=== PATIENT | female | born 1935 | race Hispanic/Latino ===

== ENCOUNTER 2021-07-18 15:16 | Emergency (ER) | payer MEDICARE, MEDICAID ==
[~2021-07-18] VITALS: Ht 160 cm; Wt 62.6 kg
[2021-07-18 15:56] LABS: APPEARANCE,URINE Clear (CLEAR); BILIRUBIN,URINE Negative (NEGATIVE); COLOR,URINE Yellow (YELLOW); GLUCOSE, URINE (UA) Negative (NEGATIVE); KETONES,URINE Trace mg/dL (NEGATIVE); LEUKOCYTE ESTERASE ,URINE Moderate (NEGATIVE); NITRATE,URINE Negative (NEGATIVE); OCCULT BLOOD,URINE Negative (NEGATIVE); PROTEIN,URINE Trace mg/dL (NEGATIVE)
[2021-07-18 16:02] LABS: BASOPHILS % (AUTO) 0.5 % (0.0-5.0); EOSINOPHILS % (AUTO) 3.2 % (0.0-8.0); HEMATOCRIT 39.8 % (36-48); LYMPHOCYTES % (AUTO) 38.4 % (21.0-51.0); MEAN CORPUSCULAR HEMOGLOBIN 29.5 pg (27.0-33.0); MEAN CORPUSCULAR HGB CONC 32.2 g/dL (32.0-36.0); MEAN CORPUSCULAR VOLUME 91.7 fL (79-99); MONOCYTES % (AUTO) 6.4 % (3.0-13.0); NEUTROPHILS % (AUTO) 51.4 % (40.0-77.0); PLATELET COUNT (AUTO) 208 K/uL (130-400); RED BLOOD CELL COUNT(AUTO) 4.34 MIL/uL (4.00-5.50); RED CELL DISTRIBUTION WIDTH 14.3 % (11.0-15.5); WHITE BLOOD COUNT (AUTO) 7.3 K/uL (4.8-10.8)
[2021-07-18 16:21] LABS: B-TYPE NATRIURETIC PEPTIDE 74 pg/mL (0-100)
[2021-07-18 16:24] LABS: BACTERIA,URINE Few /HPF (None Seen); MUCUS,URINE Few LPF (None Seen); SQUAMOUS EPITHELIAL CELL,UR Few /HPF (0-2)
[2021-07-18 16:24] LABS: CARBON DIOXIDE 24 mmol/L (21-32); CHLORIDE 108 mmol/L (101-111); CREATININE 1.7 mg/dL (0.5-1.5); GLOMERULAR FILTR. RATE CALC 30 mL/min (>60); GLUCOSE,RANDOM 95 mg/dL (70-105); POTASSIUM 3.7 mmol/L (3.5-5.1); SODIUM SERUM 143 mmol/L (136-145); UREA NITROGEN, BLOOD 31 mg/dL (7-18)
[2021-07-18 16:35] LABS: ALANINE AMINOTRANSFERASE 14 U/L (12-78); ALBUMIN 3.9 g/dL (3.5-5.0); ASPARTATE AMINOTRANSFERASE 14 U/L (10-37); BILIRUBIN,TOTAL 0.4 mg/dL (0.2-1.0); CREATINE KINASE, TOTAL 78 U/L (21-232); THYROID STIMULATING HORMONE 0.56 uIU/mL (0.36-3.74); TOTAL PROTEIN, SERUM 7.6 g/dL (6.0-8.3)
[2021-07-18 16:39] LABS: CRP QUANTITATIVE < 2.00 mg/L (0.00-9.0)
[2021-07-18 16:46] LABS: AMMONIA 18 umol/L (11-32)
[2021-07-18 18:16] VITALS: BP 139/63
== END 2021-07-18 18:56 | disposition home or self-care (01) ==
LOC: EDH 15:16
DX: R53.1 Weakness (principal); R63.0 Anorexia; N28.9 Disorder of kidney and ureter, unspecified; F03.90 Unspecified dementia, unspecified severity, without behavioral disturbance, psychotic disturbance, mood disturbance, and anxiety; Z20.822 Contact with and (suspected) exposure to COVID-19; E11.9 Type 2 diabetes mellitus without complications; E78.00 Pure hypercholesterolemia, unspecified; I10 Essential (primary) hypertension; E05.90 Thyrotoxicosis, unspecified without thyrotoxic crisis or storm
CPT/HCPCS: 36415; 70450; 71045; 80053; 81001; 82140; 82550; 83735; 83880; 84443; 84484; 85025; 86140; 87088; 87635; 87804 ×2; 99285; C9803

== ENCOUNTER 2024-03-09 19:20 | Inpatient (IN) | payer MEDICARE ==
[~2024-03-09] VITALS: Ht 154.9 cm; Wt 87.6 kg
--- NOTE | 2024-03-09 19:32 | ERN ---
General Chief Complaint: Shortness of Breath Stated Complaint: SHORTNESS OF BREATH, WHEEZING Time Seen by MD: 19:28 History of Present Illness Initial Comments 88-year-old female brought in by EMS from [facility] for wheezing cough congestion for the last two days. Patient complaining of shortness of breath and dry cough. EMS arrived find the patient satting at 93% on room air with wheezing. They gave a DuoNeb place the patient on 2 L nasal cannula. On arrival here she still has wheezing, minimal tachypnea, able to speak sentences. Baseline mentation, history of dementia. DNR. No rubens signs of fluid overload. She denies any complaints at this time although the history is unreliable. Allergies: Coded Allergies: No Known Drug Allergies (Unverified Allergy, Unknown, 07/18/21) Past Medical History Past Medical History: Dementia, Diabetes-Type II, High Cholesterol, Hypertension, Hyperthyroid, Hypothyroid, Renal Disese Past Surgical History: None Family History Family History: Negative Social History Social History: Negative ROS Dictation Patient reports dyspnea, denies any other complaints. Unreliable history for review of systems. Physical Exam Physical Exam Dictation VITAL SIGNS: Reviewed. GENERAL APPEARANCE: Alert, baseline mentation, moderate distress due to dyspnea HEAD AND FACE: Non-traumatic. EYES: PERRL, pink conjunctivas, eyelid no trauma, anterior chamber clear. EARS: Pinnas intact and no signs of trauma or erythema. Ear canals clear and no discharge. TMs no erythema. NOSE: No discharge, no bleeding. OROPHARYNX: Mouth normal, teeth no caries, tongue pink. Pharynx clear, no erythema. Tonsils no exudates, no abscesses noted. Mucous membrane moist. NECK: Supple, non-tender, no thyromegaly, no masses, no JVD, no bruits. BREAST: Deferred. CHEST: No tenderness, no crepitus, no paradoxical movement, no retractions. LUNGS: Wheezing coarse lung sounds all lobes, speaking full sentences, mild tachypnea HEART: Regular rate, regular rhythm, no murmur, no gallops. VASCULAR: No peripheral edema. ABDOMEN: Soft, positive bowel sounds, nondistended, no guarding, nontender, no rebound, no masses no hepatomegaly, no splenomegaly, no Griffin's sign, no hernias. RECTAL: Deferred. GENITAL: Deferred. NEUROLOGICAL: Normal speech, gross motor function intact, gross sensory function intact. MUSCULOSKELETAL: Neck nontender, full range of motion, back nontender, full range of motion. EXTREMITIES: Nontender, full range of motion. SKIN: Color pink, dry, no turgor, no rash, no lacerations, no abrasions, no contusions. LYMPHATICS: Deferred. Results Laboratory and Microbiology Lab and Micro Result Laboratory Tests Test 03/09/24 19:40 White Blood Count 9.1 K/uL (4.8-10.8) Red Blood Count 3.53 MIL/uL (4.00-5.50) L Hemoglobin 10.9 g/dL (12.0-16.0) L Hematocrit 35.0 % (36-48) L Mean Corpuscular Volume 99.2 fL (79-99) H Mean Corpuscular Hemoglobin 30.9 pg (27.0-33.0) Mean Corpuscular Hemoglobin Concent 31.1 g/dL (32.0-36.0) L Red Cell Distribution Width 13.5 % (11.0-15.5) Platelet Count 181 K/uL (130-400) Mean Platelet Volume 9.8 fL (7.5-10.5) Immature Granulocyte % (Auto) 1.1 % (0-1) H Neutrophils (%) (Auto) 46.1 % (40.0-77.0) Lymphocytes (%) (Auto) 35.0 % (21.0-51.0) Monocytes (%) (Auto) 8.1 % (3.0-13.0) Eosinophils (%) (Auto) 9.0 % (0.0-8.0) H Basophils (%) (Auto) 0.7 % (0.0-5.0) Neutrophils # (Auto) 4.2 K/uL (1.8-7.7) Lymphocytes # (Auto) 3.2 K/uL (1.0-4.8) Monocytes # (Auto) 0.7 K/uL (0.1-1.0) Eosinophils # (Auto) 0.82 K/uL (0.00-0.70) H Basophils # (Auto) 0.06 K/uL (0.00-0.20) Absolute Immature Granulocyte (auto 0.10 K/uL (0-1) Nucleated Red Blood Cells 0.0 % (0.0-0.19) Sodium Level 141 mmol/L (136-145) Potassium Level 4.0 mmol/L (3.5-5.1) Chloride Level 102 mmol/L (101-111) Carbon Dioxide Level 32 mmol/L (21-32) Blood Urea Nitrogen 43 mg/dL (7-18) H Creatinine 2.5 mg/dL (0.5-1.0) H Glomerular Filtration Rate Calc 18 mL/min (>90) Random Glucose 130 mg/dL (70-105) H Total Calcium 9.0 mg/dL (8.5-10.1) B-Type Natriuretic Peptide 36 pg/mL (0-100) MDM CC: dyspnea, wheezing Historian: EMS, patient baseline dementia External chart review: patient's admission paperwork from the facility. Baseline mentation and medical conditions and med lists reviewed. Limitations by social determinates of health: none Differential diagnosis: COPD, bronchitis, resp distress, hypoxia, pneumonia, fluid overload, etc. EKG (Independently interpreted by me): NSR, rate 86, normal axis, good RWP, no STEMI. On clinical exam patient has a expiratory wheezes and coarse breath sounds. CXR (independently interpreted by me): No focal infiltrates no pleural effusions no cardiomegaly. Labs: Mild anemia hemoglobin 10.9. Baseline for patient based on previous labs. No leukocytosis. No shift no bands. Elevated eosinophils. Chemistry panel shows stable electrolytes, GFR is 18. BNP is normal. Based on previous labs patient has a an JEFF on CKD. Last creatinine was 1.7 in 2021. Treatment in ED: 125 mg methylprednisolone IV, ipratropium, 5 mg albuterol, 1 L of lactated Ringer's, 500 mg azithromycin. Re-evaluation: Patient improved, but still minimal wheezing. Plan: We will admit for COPD exacerbation/wheezing. Stable. Consultation: Hospitalist for admission. ED Course Orders Procedure Category Date Status Time Arterial Blood Gas RT 03/09/24 Transmitted 19:30 Cbc With Differential LAB 03/09/24 Complete 19:30 B-Type Natriuretic LAB 03/09/24 Complete Peptide 19:30 Chest 1vw RAD 03/09/24 Taken 19:30 12 Lead Ekg Tracing- EKG 03/09/24 Logged Technical 19:30 Lactated Ringers PHA 03/09/24 In Process 1000ml (Lactated 19:30 Albuterol 0.083% PHA 03/09/24 Complete 2.5mg/3ml (Proventil 19:30 Ipratropium 0.5 PHA 03/09/24 Complete Mg/2.5 Ml Inh 19:30 Methylprednisolone PHA 03/09/24 Complete Succ 125mg (Solu-Medr 19:30 Basic Metabolic Panel LAB 03/09/24 Complete 19:30 Azithromycin PHA 03/09/24 Transmitted (Zithromax) 20:30 Current Medications Medications (Trade) Dose Ordered Sig/Avery Route PRN Reason Start Time Stop Time Status Last Admin Dose Admin Albuterol Sulfate (Proventil 0.083% 2.5mg/3ml) 5 mg ONCE ONCE IH 03/09/24 19:30 03/09/24 19:31 DC 03/09/24 20:07 Ipratropium [place] (AtrovENT UD) 0.5 mg ONCE ONCE IH 03/09/24 19:30 03/09/24 19:31 DC 03/09/24 20:05 Lactated Ringer's 1,000 ml @ 125 mls/hr ONCE ONCE IV 03/09/24 19:30 03/10/24 03:29 03/09/24 19:55 Methylprednisolone Sodium Succinate (Solu-medROL 125MG) 125 mg ONCE ONCE IVP 03/09/24 19:30 03/09/24 19:31 DC 03/09/24 19:54 Vital Signs Date Time Temp Pulse Resp B/P (MAP) Pulse Ox O2 Delivery O2 Flow Rate FiO2 03/09/24 19:40 99.0 87 22 152/70 95 Room Air* 0 21 03/09/24 19:26 98.2 89 16 144/87 99 Nasal Cannula 2.0 DX & DISP Disposition: Inpatient Departure Impression: Primary Impression: Bronchitis with wheezing Additional Impressions: Anemia, JEFF (acute kidney injury), Dementia Critical Time: 30 minutes (Critical Care Procedure NoteAuthorized and Performed by: meTotal critical care time: Approximately 36 minutesDue to a high probability of clinically significant, life threatening deterioration, the patient required my highest level of preparedness to intervene emergently and I personally spent this critical care time directly and personally managing the patient. This critical care time included obtaining a history; examining the patient; pulse oximetry; ordering and review of studies; arranging urgent treatment with development of a management plan; evaluation of patient's response to treatment; frequent reassessment; and, discussions with other provid ers.This critical care time was performed to assess and manage the high probability of imminent, life-threatening deterioration that could result in multi-organ failure. It was exclusive of separately billable procedures and treating other patients and teaching time.Please see MDM section and the rest of the note for further information on patient assessment and treatment.) Condition: Stable Referrals: NICOLE MEADOWS MD (PCP) DARREL IZAGUIRRE DO Mar 09, 2024 19:32
[2024-03-09 19:52] LABS: BASOPHILS # (AUTO) 0.06 K/uL (0.00-0.20); BASOPHILS % (AUTO) 0.7 % (0.0-5.0); EOSINOPHILS # (AUTO) 0.82 K/uL (0.00-0.70); LYMPHOCYTES # (AUTO) 3.2 K/uL (1.0-4.8); MEAN CORPUSCULAR HEMOGLOBIN 30.9 pg (27.0-33.0); MEAN CORPUSCULAR HGB CONC 31.1 g/dL (32.0-36.0); MEAN CORPUSCULAR VOLUME 99.2 fL (79-99); MONOCYTES # (AUTO) 0.7 K/uL (0.1-1.0); MONOCYTES % (AUTO) 8.1 % (3.0-13.0); NEUTROPHILS # (AUTO) 4.2 K/uL (1.8-7.7); NEUTROPHILS % (AUTO) 46.1 % (40.0-77.0); PLATELET COUNT (AUTO) 181 K/uL (130-400); RED BLOOD CELL COUNT(AUTO) 3.53 MIL/uL (4.00-5.50); RED CELL DISTRIBUTION WIDTH 13.5 % (11.0-15.5); WHITE BLOOD COUNT (AUTO) 9.1 K/uL (4.8-10.8)
[2024-03-09] MEDS: Solu-medROL 125MG VIAL IVP ONE (19:54)
[2024-03-09] MEDS: LACTATED RINGERS 1000ML 1,000 ML IV ONE (19:55)
[2024-03-09] MEDS: IpraTROPium 0.5 MG/2.5 ML INH IH ONE (20:05)
[2024-03-09 20:06] LABS: CREATININE 2.5 mg/dL (0.5-1.0)
[2024-03-09 20:07] VITALS: PULSE 78; RESP 18
[2024-03-09] MEDS: ALBUTEROL 0.083% 2.5 MG/3 ML INH IH ONE (20:07)
[2024-03-09 20:10] LABS: B-TYPE NATRIURETIC PEPTIDE 36 pg/mL (0-100)
[2024-03-09] MEDS ORDERED: ondanSETRON 4MG TABLET PO PRN (21:00)
[2024-03-09] MEDS ORDERED: acetaMINOPHEN 325 MG TAB PO PRN (21:00)
[2024-03-09] MEDS: DOXYCYCLINE 100MG+NS 250ML 250 ML IV SCH (21:16)
[2024-03-09] MEDS: AZITHROMYCIN 250 MG TABLET PO ONE (21:16)
[2024-03-09] MEDS: ceFEPime HCL 1 GM VIAL IVPB SCH (21:16)
[2024-03-09 21:57] LABS: ABG BASE EXCESS -2.8 mmol/L (-2.0-3.0); ABG HCO3 22.6 mmol/L (21.0-28.0); ABG OXYGEN SATURATION 94.2 % (94.0-98.0); ABG PCO2 41 mmHg (32-45); ABG PH 7.356 (7.350-7.450); DEVICE COMMENT RB RNPAUL; PO2, ARTERIAL BG 73.2 mmHg (83.0-108.0); VENT MODE, BG NC (ROOM AIR)
[2024-03-09 22:00] VITALS: PULSE 90; RESP 21; O2SAT 94
--- NOTE | 2024-03-09 22:22 | EKG ---
[facility] Test Date: 2024-03-09 Test Time: 19:51:15 Pat Name: MONIQUE SHELTON Department: [facility] Room: 310 1 Gender: F Marketing Systems Manager: [id number] : 1935 Requested By: DARREL IZAGUIRRE Order Number: [id number] Reading MD: Joseph Richter Measurements Intervals Dixon Rate: 86 P: 15 AR: 166 QRS: 40 QRSD: 101 T: 51 QT: 394 QTc: 471 Interpretive Statements Sinus rhythm Compared to ECG 12/10/2014 20:53:40 Sinus bradycardia no longer present T-wave abnormality no longer present Electronically Signed On 03-10-2024 10:20:58 HEAD BAKER by Joseph Richter Please click the below link to view image of tracing.
[2024-03-09 22:50] VITALS: BP 115/56; PULSE 87; RESP 19; TEMP 98.1
--- NOTE | 2024-03-09 23:07 | HMCIMG ---
CHEST 1VW HISTORY: Dyspnea COMPARISON: 07/18/2021 FINDINGS: A frontal projection of the chest was obtained. Mild bilateral pulmonary infiltrates are seen may be related to mild pulmonary vascular congestion with possible superimposed pneumonitis. The heart is borderline enlarged. Degenerative changes are seen. No evidence of aortic calcification is seen. IMPRESSION: 1. Mild bilateral pulmonary infiltrates are seen may be related to mild pulmonary vascular congestion with possible superimposed pneumonitis.
[2024-03-09 23:25] VITALS: O2SAT 96
[2024-03-10] VITALS (11 sets, daily range): BP systolic 105–128; BP diastolic 54–85; PULSE 71–82; RESP 19–21; TEMP 97.4–98.3; O2SAT 91–96
[2024-03-10] MEDS: IpraTROPium/alBUTERol SULFATE 3 ML SOLUTION IH PRN (01:34)
[2024-03-10 04:49] LABS: BASOPHILS # (AUTO) 0.02 K/uL (0.00-0.20); BASOPHILS % (AUTO) 0.3 % (0.0-5.0); EOSINOPHILS # (AUTO) 0.02 K/uL (0.00-0.70); EOSINOPHILS % (AUTO) 0.3 % (0.0-8.0); HEMATOCRIT 31.6 % (36-48); IMMATURE GRANULOCYTE ABSOLUTE 0.11 K/uL (0-1); LYMPHOCYTES # (AUTO) 1.1 K/uL (1.0-4.8); LYMPHOCYTES % (AUTO) 16.2 % (21.0-51.0); MEAN CORPUSCULAR HEMOGLOBIN 30.3 pg (27.0-33.0); MEAN CORPUSCULAR HGB CONC 30.7 g/dL (32.0-36.0); MEAN CORPUSCULAR VOLUME 98.8 fL (79-99); MONOCYTES # (AUTO) 0.1 K/uL (0.1-1.0); MONOCYTES % (AUTO) 1.5 % (3.0-13.0); NEUTROPHILS # (AUTO) 5.3 K/uL (1.8-7.7); PLATELET COUNT (AUTO) 165 K/uL (130-400); RED CELL DISTRIBUTION WIDTH 13.2 % (11.0-15.5); WHITE BLOOD COUNT (AUTO) 6.7 K/uL (4.8-10.8)
[2024-03-10 05:02] LABS: CREATININE 2.5 mg/dL (0.5-1.0); MAGNESIUM 1.9 mg/dL (1.80-2.40); POTASSIUM 4.2 mmol/L (3.5-5.1)
[2024-03-10] MEDS ORDERED: FOLI1 PO (08:23)
[2024-03-10] MEDS ORDERED: FLUT16H NASAL (08:23)
[2024-03-10] MEDS ORDERED: CHOL100046 PO (08:23)
[2024-03-10] MEDS ORDERED: CITA20TA17 PO (08:23)
[2024-03-10] MEDS ORDERED: LEVO50TA11 PO (08:25)
[2024-03-10] MEDS ORDERED: DIVA-78 PO (08:25)
[2024-03-10] MEDS ORDERED: MIRT7.5T11 PO (08:31)
[2024-03-10] MEDS ORDERED: HYDR25TA67 PO (08:31)
[2024-03-10] MEDS ORDERED: ACET-3859 PO (08:31)
[2024-03-10] MEDS ORDERED: DOCU100C33 PO (08:31)
[2024-03-10] MEDS ORDERED: ATOR10TA69 PO (08:31)
[2024-03-10] MEDS ORDERED: VENL75CA97 PO (08:37)
[2024-03-10] MEDS ORDERED: GUAI100S13 PO (08:37)
[2024-03-10] MEDS ORDERED: FOLI0.8T22 PO (08:37)
[2024-03-10] MEDS ORDERED: MELA5CAP PO (08:37)
[2024-03-10] MEDS ORDERED: FERR-82 PO (08:41)
[2024-03-10] MEDS ORDERED: IPRA0.2S54 NEB (08:41)
[2024-03-10] MEDS ORDERED: ASCO500T10 PO (08:41)
[2024-03-10] MEDS ORDERED: LOPE-198 PO (08:41)
[2024-03-10] MEDS ORDERED: LACT10SO9 PO (08:41)
[2024-03-10] MEDS: ENOXAPARIN SODIUM 30 MG/0.3 ML SQ SCH (08:47)
[2024-03-10] MEDS ORDERED: TORS20TA4 PO (08:50)
[2024-03-10] MEDS ORDERED: BENZ-39 PO (08:50)
[2024-03-10] MEDS ORDERED: ONDA-104 PO (08:50)
[2024-03-10] MEDS ORDERED: LOSA50TA64 PO (08:50)
[2024-03-10] MEDS ORDERED: DICL100G60 TP (08:55)
[2024-03-10] MEDS: DOXYCYCLINE 100MG+NS 250ML 250 ML IV SCH (10:44)
--- NOTE | 2024-03-10 14:16 | CONS ---
NEPHROLOGY CONSULTATION NOTE Date/Time Patient Seen: Mar 10, 2024 1350 Reason for Consultation: Wheezing, congestion, renal failure HISTORY OF PRESENT ILLNESS: This is an 80-year-old female with a past medical history of dementia, diabetes mellitus type 2, hyperlipidemia, hypertension, hypothyroidism, chronic kidney disease. She presented to the emergency room from [facility] with complaints of wheezing, cough, congestion x2 days. Chest x-ray showed mild bilateral pulmonary infiltrates. She has been started on antibiotics. Pending further cardiology recommendations She was noted to have elevated BUN/creatinine. We are consulted for renal failure Renal function remains elevated Electrolytes are stable. Hemoglobin is stable She was seen in the medical floor, in no acute distress Multiple family members at the bedside Prognosis remains guarded REVIEW OF SYSTEMS: GENERAL: Positive for wheezing, congestion, cough NEUROLOGIC: Negative for any blurry vision, blind spots, double vision, facial asymmetry, dysphagia, dysarthria, hemiparesis, hemisensory deficits, vertigo, ataxia. HEENT: Negative for any head trauma, neck trauma, neck stiffness, photophobia, phonophobia, sinusitis, rhinitis. CARDIAC: Negative for any chest pain, dyspnea on exertion, paroxysmal nocturnal dyspnea, peripheral edema. PULMONARY: Negative for any shortness of breath, wheezing, COPD, or TB exposure. GASTROINTESTINAL: Negative for any abdominal pain, nausea, vomiting, bright red blood per rectum, melena. GENITOURINARY: Negative for any dysuria, hematuria, incontinence. INTEGUMENTARY: Negative for any rashes, cuts, insect bites. RHEUMATOLOGIC: Negative for any joint pains, photosensitive rashes, history of vasculitis or kidney problems. HEMATOLOGIC: Negative for any abnormal bruising, frequent infections or bleeding. PAST MEDICAL HISTORY: Dementia, diabetes mellitus type 2, hyperlipidemia, hypothyroidism, chronic kidney disease, hypertension PAST SURGICAL HISTORY: None reported PAST SOCIAL HISTORY: Resident at [facility] Denies use of alcohol, tobacco or illicit drugs FAMILY HISTORY: Noncontributory PHYSICAL EXAM: GENERAL: Alert and oriented x 3. No acute distress. Well-nourished. EYES: EOMI. Anicteric. HENT: Moist mucous membranes. No scleral icterus. No cervical lymphadenopathy. LUNGS: Clear to auscultation bilaterally. No accessory muscle use. CARDIOVASCULAR: Regular rate and rhythm. No murmur. No JVD. ABDOMEN: Soft, non-tender and non-distended. No palpable masses. EXTREMITIES: No edema. Non-tender. SKIN: No rashes or lesions. Warm. NEUROLOGIC: No focal neurological deficits. CN II-XII grossly intact, but not individually tested. PSYCHIATRIC: Cooperative. Appropriate mood and affect. MEDICATIONS: [ ] Current Medications Medications (Trade) Dose Ordered Sig/Avery Route PRN Reason Start Time Stop Time Status Last Admin Dose Admin Acetaminophen (TYLenol 325MG TAB) 650 mg Q6H PRN PO MILD PAIN (1-3) 03/09/24 21:00 04/08/24 20:59 Albuterol (DUOneb) 1 UDVIAL Q6H PRN IH SHORTNESS OF BREATH 03/09/24 21:00 04/08/24 20:59 03/10/24 11:31 1 UDVIAL Cefepime HCl (MAXipime 1 GM vial) 1 gm Q12H IVPB 03/09/24 21:00 03/19/24 20:59 03/10/24 08:42 1 GM Doxycycline Hyclate 250 ml @ 125 mls/hr Q12H IV 03/09/24 21:00 03/10/24 07:51 DC 03/09/24 21:16 125 MLS/HR Doxycycline Hyclate 250 ml @ 125 mls/hr Q12H IV 03/10/24 10:00 03/20/24 09:59 03/10/24 10:44 125 MLS/HR Enoxaparin Sodium (Lovenox) 30 mg DAILY SQ 03/10/24 09:00 04/09/24 08:59 03/10/24 08:47 30 MG Insulin Human Lispro (HumaLOG LISpro 100 UNIT/ML 3ML) BIDAC SQ 03/10/24 07:30 04/09/24 07:29 Ondansetron HCl (zoFRAN 4MG TABLET) 4 mg Q6H PRN PO NAUSEA/VOMITING 03/09/24 21:00 04/08/24 20:59 Vitamin B Complex/ Vit C/Folic Acid (Nephrovite Tablet) 1 cap DAILY PO 03/11/24 09:00 04/10/24 08:59 Vital Signs (last 8hr) Date Time Temp Pulse Resp B/P (MAP) Pulse Ox O2 Delivery O2 Flow Rate FiO2 03/10/24 11:34 76 20 03/10/24 08:00 96 Nasal Cannula* 3 32 03/10/24 08:00 97.3 75 20 125/64 99 Nasal Cannula 3.0 03/10/24 07:42 75 20 03/10/24 07:40 75 20 N/Cannula Low lpm 3.0 32 DIAGNOSTICS / RADIOLOGY: REASON: Dyspnea/SOB ORDERING PHYSICIAN: DARREL IZAGUIRRE DO PROCEDURE: CXR1VW - CHEST 1VW CHEST 1VW HISTORY: Dyspnea COMPARISON: 07/18/2021 FINDINGS: A frontal projection of the chest was obtained. Mild bilateral pulmonary infiltrates are seen may be related to mild pulmonary vascular congestion with possible superimposed pneumonitis. The heart is borderline enlarged. Degenerative changes are seen. No evidence of aortic calcification is seen. IMPRESSION: 1. Mild bilateral pulmonary infiltrates are seen may be related to mild pulmonary vascular congestion with possible superimposed pneumonitis. DICTATED BY: GENNY TELLO MD DATE: 03/09/24 6596 LABORATORY: [ ] Hematology Labs: Test 03/10/24 04:36 Range/Units White Blood Count 6.7 # 4.8-10.8 K/uL Red Blood Count 3.20 L 4.00-5.50 MIL/uL Hemoglobin 9.7 L 12.0-16.0 g/dL Hematocrit 31.6 L 36-48 % Mean Corpuscular Volume 98.8 79-99 fL Mean Corpuscular Hemoglobin 30.3 27.0-33.0 pg Mean Corpuscular Hemoglobin Concent 30.7 L 32.0-36.0 g/dL Red Cell Distribution Width 13.2 11.0-15.5 % Platelet Count 165 130-400 K/uL Mean Platelet Volume 10.0 7.5-10.5 fL Immature Granulocyte % (Auto) 1.7 H 0-1 % Neutrophils (%) (Auto) 80.0 H 40.0-77.0 % Lymphocytes (%) (Auto) 16.2 L 21.0-51.0 % Monocytes (%) (Auto) 1.5 L 3.0-13.0 % Eosinophils (%) (Auto) 0.3 0.0-8.0 % Basophils (%) (Auto) 0.3 0.0-5.0 % Neutrophils # (Auto) 5.3 1.8-7.7 K/uL Lymphocytes # (Auto) 1.1 1.0-4.8 K/uL Monocytes # (Auto) 0.1 0.1-1.0 K/uL Eosinophils # (Auto) 0.02 0.00-0.70 K/uL Basophils # (Auto) 0.02 0.00-0.20 K/uL Absolute Immature Granulocyte (auto 0.11 0-1 K/uL Nucleated Red Blood Cells 0.0 0.0-0.19 % Red Blood Cell Morphology See comments Chemistry Labs: Test 03/10/24 04:36 03/09/24 19:40 Range/Units Sodium Level 139 136-145 mmol/L Potassium Level 4.2 3.5-5.1 mmol/L Chloride Level 104 101-111 mmol/L Carbon Dioxide Level 27 21-32 mmol/L Blood Urea Nitrogen 41 H 7-18 mg/dL Creatinine 2.5 H 0.5-1.0 mg/dL Glomerular Filtration Rate Calc 18 >90 mL/min Random Glucose 192 H 70-105 mg/dL Total Calcium 8.4 L 8.5-10.1 mg/dL Magnesium Level 1.90 1.80-2.40 mg/dL B-Type Natriuretic Peptide 36 0-100 pg/mL ASSESSMENT: Patient has mental status changes with metabolic encephalopathy acute on chronic renal failure with underlying diabetic nephropathy with multiple other comorbidities Acute on chronic renal failure Anemia Dementia Bronchitis with wheezing Diabetes mellitus type 2 Hypertension Hypothyroidism Hyperlipidemia PLAN: Labs, diagnostic, radiologic exams reviewed and interpreted by myself and supervising physician. We have reviewed external records in detail Obtain UA, urine electrolytes, urine creatinine, urine osmolality and complete renal ultrasound Use bladder scan to rule out urinary retention. Start Nephro-Can daily. Start thiamine 100 mg IV daily. Require close monitoring of renal function and electrolytes Order CBC, CMP, uric acid, TSH, complete iron panel, ferritin and electrolytes in am Continue with renally dosed antibiotics Renal diabetic diet BiPAP as necessary, for respiratory distress Monitor blood pressure adjust medication doses as needed Avoid hypotensive episodes May use Dilaudid 0.5 mg IV every 6 hours as needed for severe pain Monitor blood sugars Strict intake, output, and daily weight should be monitored Please renally adjust medications Avoid nephrotoxic and nonsteroidal drugs Avoid contrast if possible Will continue to monitor renal function, anemia, electrolytes Treatment plan discussed with patient Questions were answered We have discussed with the other team physicians in detail about the care plan We will continue to monitor the patient closely Thank you for allowing us to participate in the care of this patient ATTESTATION BY PHYSICIAN I have seen and examined the patient. I reviewed the documentation, medical decision making, and treatment plan as noted by the mid-level provider above. I agree with the findings and plan of care. FAITH ROMERO MD, [facility] Mar 10, 2024 14:16 FAITH ROMERO MD Mar 10, 2024 19:58
[2024-03-10] MEDS: guaiFENesin-DM 200/20MG 10ML PO PRN (15:26)
[2024-03-10] MEDS: BENZONATATE 100 MG CAPSULE PO SCH (15:26)
[2024-03-10] MEDS ORDERED: IpraTROPium 0.5 MG/2.5 ML INH IH PRN (15:45)
[2024-03-10] MEDS ORDERED: BENZONATATE 100 MG CAPSULE PO PRN (16:00)
[2024-03-10] MEDS ORDERED: hydrALAZine 25MG TABLET PO PRN (16:00)
[2024-03-10] MEDS ORDERED: acetaMINOPHEN 325 MG TAB PO PRN (16:00)
--- NOTE | 2024-03-10 17:26 | HMCIMG ---
US RENAL SONOGRAM HISTORY: Decreased renal function COMPARISON: None TECHNIQUE: Renal and bladder ultrasound study was performed. FINDINGS: The right kidney measures 10 x 4.6 x 3 cm. The left kidney measures 9.6 x 5 x 4.4 cm. No evidence of hydronephrosis is seen of either kidney. Both kidneys are seen. Bladder is moderately distended. Bladder is partially distended. There is left upper pole renal cyst measuring 16 x 14 mm. IMPRESSION: 1. No hydronephrosis is seen. Left upper pole renal cyst measuring 16 x 14 mm.
--- NOTE | 2024-03-10 17:41 | NUR ---
Discharge Planning: Information obtained from patient's daughter Zita Albrecht at bedside. Patient's PCP is Dr. Tejeda. Pt. has been residing in [place] for 2 years. POA is patient's son Gm Delgado at . Plan is for patient to return to SNF. Further planning will depend on patient's progress. Addendum: 03/10/24 at 8308 by MICHELLE SILVA RN CM Amended: Links added.
[2024-03-10] MEDS: FERROUS SULFATE 325 MG TABLET.DR PO SCH (17:44)
[2024-03-10] MEDS: TORSEMIDE 20 MG TAB PO SCH (17:44)
[2024-03-10 18:10] LABS: CHLORIDE,URINE RANDOM 41 mmol/L (110-250); POTASSIUM,URINE RANDOM 39 mmol/L (25-125); SODIUM,URINE RANDOM 45 mmol/l (40-220)
[2024-03-10 18:11] LABS: ADD UA MICROSCOPIC YES; APPEARANCE,URINE CLOUDY (CLEAR); BILIRUBIN,URINE NEGATIVE (NEGATIVE); COLOR,URINE LIGHT-YELLOW (YELLOW); GLUCOSE, URINE (UA) NEGATIVE (NEGATIVE); KETONES,URINE NEGATIVE (NEGATIVE); LEUKOCYTE ESTERASE ,URINE 75 Leu/uL (NEGATIVE); NITRATE,URINE NEGATIVE (NEGATIVE); OCCULT BLOOD,URINE NEGATIVE (NEGATIVE); PH,URINE 6.5 (5.0-8.0); PROTEIN,URINE 20 mg/dL (NEGATIVE); UROBILINOGEN,URINE 0.2 mg/dL (0.2-1.0)
[2024-03-10 18:13] LABS: BACTERIA,URINE RARE /HPF (None Seen); MUCUS,URINE RARE LPF (None Seen); NON-SQUAMOUS EPITHELIAL CELL 2 /HPF (0-2); OTHER CASTS, URINE 1 /LPF (None Seen); RBC,URINE 0-1 /HPF (0-1); SQUAMOUS EPITHELIAL CELL,UR FEW /HPF (0-2)
--- NOTE | 2024-03-10 21:09 | PN ---
INFECTIOUS DISEASE PROGRESS NOTE Date of Service: Mar 10, 2024 SUBJECTIVE: This is an 88-year-old female patient resident of [facility] who was sent over to the hospital for chief complaint of wheezing, shortness of breaths, cough and congestion. Patient was seen and examined at bedside in room 310. Patient is awake, alert and oriented to person only due to history of dementia. Able to answers basic questions. Patient is on oxygen support via nasal cannula at 3 liters/minute. No fever, temperature is 97.5 and a WBC of 6.7. Patient is currently on cefepime and doxycycline for pneumonia. We will continue with bronchodilators and antitussives. No other issues reported by nursing. PHYSICAL EXAM EYES: Anicteric. Pupils equal and reactive. HENT: No oral thrush seen, moist Oral mucosa. NECK: Supple, no JVD or thyromegaly. LUNGS: Good air entry. Crackles/wheezing. Oxygen support. CARDIOVASCULAR: S1, S2 regular. No murmur heard. ABDOMEN: Soft, non tender, bowel sounds present, no organomegaly. CENTRAL NERVOUS SYSTEM: Awake, alert, oriented x 1. SKIN: No rashes, no swelling. LYMPHATICS: No peripheral lymphadenopathy. MUSCULOSKELETAL: No joint swelling, erythema or tenderness. EXTREMITIES: No cyanosis or clubbing. BACK: No deformity, no pressure ulcer. GENITOURINARY: No dysuria or hematuria. Vital Sign (Last 12 Hours) 03/10/24 03/10/24 03/10/24 03/10/24 11:34 12:00 16:00 19:53 Temp 97.5 97.9 Pulse 76 82 79 71 Resp 20 20 20 20 B/P (MAP) 128/85 127/68 Pulse Ox 98 99 O2 Delivery Nasal Cannula Room Air O2 Flow Rate 3.0 03/10/24 03/10/24 19:53 20:00 Temp 98.2 Pulse 72 79 Resp 20 21 B/P (MAP) 120/64 Pulse Ox 94 O2 Delivery N/Cannula Low lpm Nasal Cannula O2 Flow Rate 3.0 2.0 FiO2 32 24 LABS: Laboratory: Test 03/10/24 11:23 03/10/24 04:36 03/09/24 21:54 03/09/24 19:40 Range/Units Urine Color LIGHT-YELLOW YELLOW Urine Appearance CLOUDY H CLEAR Urine pH 6.5 5.0-8.0 Urine Specific [place] 1.019 1.001-1.031 Urine Protein 20 H NEGATIVE mg/dL Urine Glucose (UA) NEGATIVE NEGATIVE mg/dL Urine Ketones NEGATIVE NEGATIVE mg/dL Urine Occult Blood NEGATIVE NEGATIVE Urine Nitrate NEGATIVE NEGATIVE Urine Bilirubin NEGATIVE NEGATIVE mg/dL Urine Urobilinogen 0.2 0.2-1.0 mg/dL Urine Leukocyte Esterase 75 H NEGATIVE [place]/uL Urine RBC 0-1 0-1 /HPF Urine WBC 6-10 H 0-1 /HPF Urine Squamous Epithelial Cells FEW 0-2 /HPF Urine Non-Squamous Epithelial Cells 2 0-2 /HPF Urine Bacteria RARE None Seen /HPF Urine Other Casts 1 None Seen /LPF Urine Random Creatinine 109.00 30-135 mg/dL Urine Random Sodium 45 40-220 mmol/l Urine Random Potassium 39 25-125 mmol/L Urine Random Chloride 41 L 110-250 mmol/L White Blood Count 6.7 # 4.8-10.8 K/uL Red Blood Count 3.20 L 4.00-5.50 MIL/uL Hemoglobin 9.7 L 12.0-16.0 g/dL Hematocrit 31.6 L 36-48 % Mean Corpuscular Volume 98.8 79-99 fL Mean Corpuscular Hemoglobin 30.3 27.0-33.0 pg Mean Corpuscular Hemoglobin Concent 30.7 L 32.0-36.0 g/dL Red Cell Distribution Width 13.2 11.0-15.5 % Platelet Count 165 130-400 K/uL Mean Platelet Volume 10.0 7.5-10.5 fL Immature Granulocyte % (Auto) 1.7 H 0-1 % Neutrophils (%) (Auto) 80.0 H 40.0-77.0 % Lymphocytes (%) (Auto) 16.2 L 21.0-51.0 % Monocytes (%) (Auto) 1.5 L 3.0-13.0 % Eosinophils (%) (Auto) 0.3 0.0-8.0 % Basophils (%) (Auto) 0.3 0.0-5.0 % Neutrophils # (Auto) 5.3 1.8-7.7 K/uL Lymphocytes # (Auto) 1.1 1.0-4.8 K/uL Monocytes # (Auto) 0.1 0.1-1.0 K/uL Eosinophils # (Auto) 0.02 0.00-0.70 K/uL Basophils # (Auto) 0.02 0.00-0.20 K/uL Absolute Immature Granulocyte (auto 0.11 0-1 K/uL Nucleated Red Blood Cells 0.0 0.0-0.19 % Red Blood Cell Morphology See comments Sodium Level 139 136-145 mmol/L Potassium Level 4.2 3.5-5.1 mmol/L Chloride Level 104 101-111 mmol/L Carbon Dioxide Level 27 21-32 mmol/L Blood Urea Nitrogen 41 H 7-18 mg/dL Creatinine 2.5 H 0.5-1.0 mg/dL Glomerular Filtration Rate Calc 18 >90 mL/min Random Glucose 192 H 70-105 mg/dL Total Calcium 8.4 L 8.5-10.1 mg/dL Magnesium Level 1.90 1.80-2.40 mg/dL Ferritin 196 H 15-150 ng/mL Blood Gas Specimen Type Arterial Arterial Blood pH 7.356 7.350-7.450 Arterial Blood Partial Pressure CO2 41 32-45 mmHg Arterial Blood Partial Pressure O2 73.2 L 83.0-108.0 mmHg Arterial Blood HCO3 22.6 21.0-28.0 mmol/L Arterial Blood Oxygen Saturation 94.2 94.0-98.0 % Arterial Blood Base Excess -2.8 L -2.0-3.0 mmol/L Blood Gas Temperature 37.0 35.5-37.0 CELSIUS Blood Gas Flow-by 3.00 0.00-15.00 L/min Blood Gas Vent Mode NC ROOM AIR FiO2 32.0 % Blood Gas Specimen Comment RB RNPAUL B-Type Natriuretic Peptide 36 0-100 pg/mL DIAGNOSTICS / RADIOLOGY: PATIENT: MONIQUE SHELTON MR#: [id number] : 1935 SEX: F AGE: 88 LOCATION: [facility] ORDER 30 STATUS: ADM IN REPORT#: [id number] SERVICE 29 REASON: Dyspnea/SOB ORDERING PHYSICIAN: DARREL IZAGUIRRE DO PROCEDURE: CXR1VW - CHEST 1VW CHEST 1VW HISTORY: Dyspnea COMPARISON: 07/18/2021 FINDINGS: A frontal projection of the chest was obtained. Mild bilateral pulmonary infiltrates are seen may be related to mild pulmonary vascular congestion with possible superimposed pneumonitis. The heart is borderline enlarged. Degenerative changes are seen. No evidence of aortic calcification is seen. IMPRESSION: 1. Mild bilateral pulmonary infiltrates are seen may be related to mild pulmonary vascular congestion with possible superimposed pneumonitis. DICTATED BY: GENNY TELLO MD DATE: 03/09/24 6804 ASSESSMENT: Hypoxic respiratory failure, requiring oxygen support. Pneumonia. Urinary tract infection. Acute on chronic renal failure. Diabetes mellitus. Hypertension. Dementia. PLAN: Obtain nephrology consult with Dr. Hines. Obtain Cardiology consult with Dr. Richter. Continue doxycycline IV. Continue cefepime IV. Continue DuoNebs. Continue oxygen support. Avoid nephrotoxic medications. Glucometer checks a.c./hs and cover with insulin per sliding scale protocol. Home medications reviewed and reconciled. This case was reviewed and discussed with my supervising physician and the above assessment and plan was formulated and agreed upon. ATTESTATION BY PHYSICIAN I have seen and examined the patient. I reviewed the documentation, medical decision making, and treatment plan as noted by the mid-level provider above. I agree with the findings and plan of care. BRAD MCGRAW MD, [facility] Mar 10, 2024 21:09
[2024-03-10] MEDS: atorVAStatin 10 MG TABLET PO SCH (21:39)
[2024-03-10] MEDS: doCUSate SODIUM 100 MG CAP PO SCH (21:39)
[2024-03-10] MEDS: divALPRoex SOdium 250 MG TAB PO SCH (21:40)
[2024-03-10] MEDS: mirtAZAPine 15 MG TABLET PO SCH (21:40)
[2024-03-11] VITALS (13 sets, daily range): BP systolic 116–132; BP diastolic 59–77; PULSE 68–85; RESP 18–20; TEMP 97.6–98.3; O2SAT 93–98
[2024-03-11 04:33] LABS: BASOPHILS # (AUTO) 0.02 K/uL (0.00-0.20); BASOPHILS % (AUTO) 0.2 % (0.0-5.0); EOSINOPHILS # (AUTO) 0.09 K/uL (0.00-0.70); EOSINOPHILS % (AUTO) 0.8 % (0.0-8.0); HEMATOCRIT 31.5 % (36-48); LYMPHOCYTES # (AUTO) 2.8 K/uL (1.0-4.8); LYMPHOCYTES % (AUTO) 26.2 % (21.0-51.0); MEAN CORPUSCULAR HEMOGLOBIN 30.7 pg (27.0-33.0); MEAN CORPUSCULAR HGB CONC 30.8 g/dL (32.0-36.0); MEAN CORPUSCULAR VOLUME 99.7 fL (79-99); MONOCYTES # (AUTO) 0.7 K/uL (0.1-1.0); MONOCYTES % (AUTO) 6.7 % (3.0-13.0); NEUTROPHILS # (AUTO) 6.9 K/uL (1.8-7.7); NEUTROPHILS % (AUTO) 65.2 % (40.0-77.0); PLATELET COUNT (AUTO) 159 K/uL (130-400); RED BLOOD CELL COUNT(AUTO) 3.16 MIL/uL (4.00-5.50); RED CELL DISTRIBUTION WIDTH 13.6 % (11.0-15.5); WHITE BLOOD COUNT (AUTO) 10.6 K/uL (4.8-10.8)
[2024-03-11 04:48] LABS: % IRON SATURATION 31.8 % (22-44)
[2024-03-11] MEDS: INSULIN LISpro 100 UNIT/ML 3ML SQ SCH (05:03)
[2024-03-11 05:04] LABS: ALBUMIN 2.5 g/dL (3.5-5.0); BILIRUBIN,TOTAL 0.2 mg/dL (0.2-1.0); CREATININE 2.1 mg/dL (0.5-1.0); MAGNESIUM 1.8 mg/dL (1.80-2.40); PHOSPHORUS 3.6 mg/dL (2.5-4.9); POTASSIUM 4.1 mmol/L (3.5-5.1); THYROID STIMULATING HORMONE 3.01 uIU/mL (0.36-3.74); TOTAL PROTEIN, SERUM 6.2 g/dL (6.0-8.3); URIC ACID 9.6 mg/dL (2.6-7.2)
[2024-03-11] MEDS: levoTHYROxine 50 MCG TABLET PO SCH (06:42)
[2024-03-11] MEDS: FOLic ACID 1 MG TABLET PO SCH (08:37)
[2024-03-11] MEDS: LoSARTan 50 MG TABLET PO SCH (08:37)
[2024-03-11] MEDS: ASCORBIC ACID 500 MG TAB PO SCH (08:37)
[2024-03-11] MEDS: Vitamin B Complex/Vit C/Folic Acid PO SCH (08:37)
[2024-03-11] MEDS: citaLOPram 20 MG TABLET PO SCH (08:37)
[2024-03-11] MEDS: venLAFAXine HCL XR 37.5 MG CAP 37.5 MG CAP.ER.24H PO SCH (08:37)
[2024-03-11] MEDS: fluTICasone proPIONate 50MCG/SPRAY 16 GM BOTTLE NS SCH (09:00)
[2024-03-11] MEDS: CHOLECALCIFEROL 25 MCG PO SCH (09:00)
--- NOTE | 2024-03-11 12:27 | PN ---
INFECTIOUS DISEASE FOLLOWUP NOTE DATE OF SERVICE: 03/10/2024 SUBJECTIVE: The patient is seen and examined at bedside. No fever, no chills. No nausea, no vomiting, no abdominal pain. She has some cough. Wheezing is much better. The patient remained on oxygen. Tolerating orally. No chest pain. No headache or dizziness. PHYSICAL EXAMINATION: VITAL SIGNS: Temperature 97.4. EYES: No icterus. Pupils equal and reactive. HENT: No oral lesions seen. Moist oral mucosa. NECK: Supple. No JVD or thyromegaly. LUNGS: Good air entry. Few crackles . CARDIOVASCULAR: S1, S2 regular. No murmur heard. ABDOMEN: Obese, soft, nontender. Bowel sound is present. CENTRAL NERVOUS SYSTEM: Awake, alert. Bedbound. No focal deficits.. SKIN: No rashes, no itchiness. LYMPHATIC: No peripheral lymphadenopathy. MUSCULOSKELETAL: No joint swelling, erythema, or tenderness. BACK: No deformity, no pressure ulcer. ASSESSMENT: An 88-year-old female presenting with cough, shortness of breath and wheezing : * Acute aspiration pneumonia. * Hypoxic respiratory failure. * Chronic renal disease. * Diabetes mellitus. * Obesity. * Hypertension. PLAN: * Continue bronchodilator. * Continue cefepime. * Continue doxycycline. * Continue DVT prophylaxis. * Continue oxygen. * Monitor electrolytes. * Continue nutritional support. * Continue DVT prophylaxis. * Continue pain management. TID: [id number] RECEIPT: [id number]
[2024-03-11] MEDS ORDERED: COMPOUND IV MISC 1 EACH IVSOLN MISC PRN (12:30)
--- NOTE | 2024-03-11 12:33 | HP ---
DATE OF SERVICE: 03/09/2024 HISTORY AND PHYSICAL PRESENTING COMPLAINT: Cough, shortness of breath and wheezing. HISTORY OF PRESENT ILLNESS: A 58-year-old female with obesity, dementia, diabetes mellitus, who was [facility] with cough and shortness of breath. The patient's symptoms started a few days prior to presentation. Cough is dry. The patient noticed with increased wheezing and shortness of breath and was brought to the Emergency Room. X-ray done in the Emergency Room shows pulmonary vascular congestion and bilateral infiltrates. No sore throat. No rhinorrhea. No bleeding tendency. No rashes or itchiness. The patient is awake, but not a good historian due to outlying dementia. PAST MEDICAL HISTORY: * Dementia. * Diabetes mellitus. * Obesity. * Dyslipidemia. * Hypothyroidism. * Chronic kidney disease. PAST SURGICAL HISTORY: None. ALLERGIES: No known drug allergy. MEDICATIONS: [facility] medications will be reviewed when made available. SOCIAL HISTORY: Lives at a correction. No alcohol, tobacco or illicit drug use. FAMILY HISTORY: Positive for diabetes mellitus. REVIEW OF SYSTEMS: Available history obtained from ER note. The patient is awake, but a poor historian. PHYSICAL EXAMINATION: GENERAL: Elderly female, awake. VITAL SIGNS: Temperature 98.1, pulse 87, respirations 19, BP 115/56. EYES: No icterus. No conjunctival hemorrhage. HENT: No oral thrush seen. Moist oral mucosa. NECK: Supple, no JVD or thyromegaly. LUNGS: Good air entry. Crackles bilaterally. There are expiratory rhonchi. CARDIOVASCULAR: S1, S2 regular. No murmur heard. ABDOMEN: Obese, soft, nontender. Bowel sounds present. CENTRAL NERVOUS SYSTEM: The patient is awake, alert. Bedbound. No focal deficits. SKIN: No rashes, no itchiness. LYMPHATIC: No peripheral lymphadenopathy. BACK: No deformity, no pressure ulcer. MUSCULOSKELETAL: No joint swelling, erythema or tenderness. LABORATORY DATA: Sodium 141, potassium 4.0. BUN 43, creatinine 2.5. WBC 9.1, hemoglobin 10.9, platelets are 181. RADIOLOGY: Chest x-ray shows bilateral infiltrates. ASSESSMENT: An 88-year-old female presenting with cough, shortness of breath and wheezing. PROBLEMS: Include: * Pneumonia. * Hypoxic respiratory failure. * Chronic renal disease. * Diabetes mellitus. * Obesity. * Anemia. PLAN: * Admit the patient to medical floor. * Start the patient on DuoNeb. * Start the patient on cefepime. * Start the patient on doxycycline. * Lovenox for DVT prophylaxis. * Lispro sliding scale. * ADA diet. * Tylenol as needed for pain or fever. * Zofran as needed for nausea and vomiting. * Nephrology evaluation. TID: [id number] RECEIPT: [id number] MTDD
--- NOTE | 2024-03-11 13:54 | PN ---
INFECTIOUS DISEASE PROGRESS NOTE Date of Service: Mar 11, 2024 SUBJECTIVE: This is an 88-year-old female patient resident of [facility] who was sent over to the hospital for chief complaint of wheezing, shortness of breaths, cough and congestion. Patient was seen and examined at bedside in room 310. Patient is awake and was able to answers basic questions. Patient continues wheezing, we will start Solu-Medrol 40 mg IV daily. Patient is afebrile, temperature is 97.9 with a WBC of 10.6. Continues on cefepime and doxycycline. Remains on oxygen support via nasal cannula at 3 liters/minute. Family members visiting at bedside. We will continue to follow patient's care. PHYSICAL EXAM EYES: Anicteric. Pupils equal and reactive. HENT: No oral thrush seen, moist Oral mucosa. NECK: Supple, no JVD or thyromegaly. LUNGS: Good air entry. Crackles/wheezing. Oxygen support. CARDIOVASCULAR: S1, S2 regular. No murmur heard. ABDOMEN: Soft, non tender, bowel sounds present, no organomegaly. CENTRAL NERVOUS SYSTEM: Awake, alert, oriented x 1. SKIN: No rashes, no swelling. LYMPHATICS: No peripheral lymphadenopathy. MUSCULOSKELETAL: No joint swelling, erythema or tenderness. EXTREMITIES: No cyanosis or clubbing. BACK: No deformity, no pressure ulcer. GENITOURINARY: No dysuria or hematuria. Vital Sign (Last 12 Hours) 03/11/24 03/11/24 03/11/24 03/11/24 04:00 07:30 07:32 08:00 Temp 98.1 Pulse 85 70 70 Resp 19 20 20 B/P (MAP) 130/67 Pulse Ox 91 94 O2 Delivery Room Air N/A Room Air Room Air* O2 Flow Rate 0 FiO2 21 21 21 03/11/24 03/11/24 03/11/24 03/11/24 08:00 11:49 11:49 12:00 Temp 98.1 97.9 Pulse 68 74 74 74 Resp 20 20 20 18 B/P (MAP) 116/69 122/69 Pulse Ox 94 97 O2 Delivery Room Air N/Cannula Low lpm Nasal Cannula O2 Flow Rate 3.0 2.0 FiO2 32 Intake & Output (last 24hrs) 03/10/24 03/10/24 03/11/24 15:00 23:00 07:00 Intake Total 800 ml Output Total 1150 ml 1800 ml Balance -350 ml -1800 ml LABS: Laboratory: Test 03/11/24 04:17 03/10/24 11:23 03/10/24 04:36 03/09/24 21:54 Range/Units White Blood Count 10.6 # 4.8-10.8 K/uL Red Blood Count 3.16 L 4.00-5.50 MIL/uL Hemoglobin 9.7 L 12.0-16.0 g/dL Hematocrit 31.5 L 36-48 % Mean Corpuscular Volume 99.7 H 79-99 fL Mean Corpuscular Hemoglobin 30.7 27.0-33.0 pg Mean Corpuscular Hemoglobin Concent 30.8 L 32.0-36.0 g/dL Red Cell Distribution Width 13.6 11.0-15.5 % Platelet Count 159 130-400 K/uL Mean Platelet Volume 9.9 7.5-10.5 fL Immature Granulocyte % (Auto) 0.9 0-1 % Neutrophils (%) (Auto) 65.2 40.0-77.0 % Lymphocytes (%) (Auto) 26.2 21.0-51.0 % Monocytes (%) (Auto) 6.7 3.0-13.0 % Eosinophils (%) (Auto) 0.8 0.0-8.0 % Basophils (%) (Auto) 0.2 0.0-5.0 % Neutrophils # (Auto) 6.9 1.8-7.7 K/uL Lymphocytes # (Auto) 2.8 1.0-4.8 K/uL Monocytes # (Auto) 0.7 0.1-1.0 K/uL Eosinophils # (Auto) 0.09 0.00-0.70 K/uL Basophils # (Auto) 0.02 0.00-0.20 K/uL Absolute Immature Granulocyte (auto 0.10 0-1 K/uL Nucleated Red Blood Cells 0.0 0.0-0.19 % Sodium Level 139 136-145 mmol/L Potassium Level 4.1 3.5-5.1 mmol/L Chloride Level 104 101-111 mmol/L Carbon Dioxide Level 32 21-32 mmol/L Blood Urea Nitrogen 41 H 7-18 mg/dL Creatinine 2.1 H 0.5-1.0 mg/dL Glomerular Filtration Rate Calc 22 >90 mL/min Random Glucose 84 # 70-105 mg/dL Uric Acid 9.6 H 2.6-7.2 mg/dL Total Calcium 8.3 L 8.5-10.1 mg/dL Phosphorus Level 3.6 2.5-4.9 mg/dL Magnesium Level 1.80 1.80-2.40 mg/dL Iron Level 70 50-170 mcg/dL Total Iron Binding Capacity 220 L 250-450 mcg/dL Percent Iron Saturation 31.8 22-44 % Total Bilirubin 0.2 0.2-1.0 mg/dL Aspartate Amino Transf (AST/SGOT) 23 10-37 U/L Alanine Aminotransferase (ALT/SGPT) 19 12-78 U/L Alkaline Phosphatase 48 L 50-136 U/L Total Protein 6.2 6.0-8.3 g/dL Albumin 2.5 L 3.5-5.0 g/dL Thyroid Stimulating Hormone (TSH) 3.01 # 0.36-3.74 uIU/mL Urine Color LIGHT-YELLOW YELLOW Urine Appearance CLOUDY H CLEAR Urine pH 6.5 5.0-8.0 Urine Specific [place] 1.019 1.001-1.031 Urine Protein 20 H NEGATIVE mg/dL Urine Glucose (UA) NEGATIVE NEGATIVE mg/dL Urine Ketones NEGATIVE NEGATIVE mg/dL Urine Occult Blood NEGATIVE NEGATIVE Urine Nitrate NEGATIVE NEGATIVE Urine Bilirubin NEGATIVE NEGATIVE mg/dL Urine Urobilinogen 0.2 0.2-1.0 mg/dL Urine Leukocyte Esterase 75 H NEGATIVE [place]/uL Urine RBC 0-1 0-1 /HPF Urine WBC 6-10 H 0-1 /HPF Urine Squamous Epithelial Cells FEW 0-2 /HPF Urine Non-Squamous Epithelial Cells 2 0-2 /HPF Urine Bacteria RARE None Seen /HPF Urine Other Casts 1 None Seen /LPF Urine Osmolality 557 50-1200 mOsm/kg Urine Random Creatinine 109.00 30-135 mg/dL Urine Random Sodium 45 40-220 mmol/l Urine Random Potassium 39 25-125 mmol/L Urine Random Chloride 41 L 110-250 mmol/L Red Blood Cell Morphology See comments Ferritin 196 H 15-150 ng/mL Blood Gas Specimen Type Arterial Arterial Blood pH 7.356 7.350-7.450 Arterial Blood Partial Pressure CO2 41 32-45 mmHg Arterial Blood Partial Pressure O2 73.2 L 83.0-108.0 mmHg Arterial Blood HCO3 22.6 21.0-28.0 mmol/L Arterial Blood Oxygen Saturation 94.2 94.0-98.0 % Arterial Blood Base Excess -2.8 L -2.0-3.0 mmol/L Blood Gas Temperature 37.0 35.5-37.0 CELSIUS Blood Gas Flow-by 3.00 0.00-15.00 L/min Blood Gas Vent Mode NC ROOM AIR FiO2 32.0 % Blood Gas Specimen Comment RB RNPAUL Test 03/09/24 19:40 Range/Units B-Type Natriuretic Peptide 36 0-100 pg/mL ASSESSMENT: Hypoxic respiratory failure, requiring oxygen support. Aspiration Pneumonia. Urinary tract infection. Acute on chronic renal failure. Diabetes mellitus. Hypertension. Dementia. PLAN: Start Solu-Medrol 40 mg IV daily. Continue doxycycline IV. Continue cefepime IV. Continue DuoNebs. Continue oxygen support. Nephrology consulted and following. Avoid nephrotoxic medications. Glucometer checks a.c./hs and cover with insulin per sliding scale protocol. This case was reviewed and discussed with my supervising physician and the above assessment and plan was formulated and agreed upon. ATTESTATION BY PHYSICIAN I have seen and examined the patient. I reviewed the documentation, medical decision making, and treatment plan as noted by the mid-level provider above. I agree with the findings and plan of care. BRAD MCGRAW MD, MIRTA L [facility] Mar 11, 2024 13:54
[2024-03-11] MEDS: IRON sUCROse COMPLEX 300 MG in 0.9% NACL 250ML 250 ML IV SCH (14:19)
--- NOTE | 2024-03-11 15:03 | PN ---
NEPHROLOGY PROGRESS NOTE Date/Time Patient Seen: Mar 11, 2024 Reason for Consultation: 15:01 SUBJECTIVE: This is an 88-year-old female with a past medical history of dementia, diabetes mellitus type 2, hyperlipidemia, hypertension, hypothyroidism, chronic kidney disease. She presented to the emergency room from [facility] with complaints of wheezing, cough, congestion x2 days. Chest x-ray showed mild bilateral pulmonary infiltrates. She has been started on antibiotics. She was noted to have elevated BUN/creatinine. We are consulted for renal failure Renal function is stable Electrolytes are stable. Renal ultrasound noted. Hemoglobin is stable, iron panel is noted. She was seen in the medical floor, in no acute distress Multiple family members at the bedside Prognosis remains guarded REVIEW OF SYSTEMS: GENERAL: Positive for wheezing, congestion, cough NEUROLOGIC: Negative for any blurry vision, blind spots, double vision, facial asymmetry, dysphagia, dysarthria, hemiparesis, hemisensory deficits, vertigo, ataxia. HEENT: Negative for any head trauma, neck trauma, neck stiffness, photophobia, phonophobia, sinusitis, rhinitis. CARDIAC: Negative for any chest pain, dyspnea on exertion, paroxysmal nocturnal dyspnea, peripheral edema. PULMONARY: Negative for any shortness of breath, wheezing, COPD, or TB exposure. GASTROINTESTINAL: Negative for any abdominal pain, nausea, vomiting, bright red blood per rectum, melena. GENITOURINARY: Negative for any dysuria, hematuria, incontinence. INTEGUMENTARY: Negative for any rashes, cuts, insect bites. RHEUMATOLOGIC: Negative for any joint pains, photosensitive rashes, history of vasculitis or kidney problems. HEMATOLOGIC: Negative for any abnormal bruising, frequent infections or bleeding. PHYSICAL EXAM: GENERAL: Alert and oriented x 3. No acute distress. Well-nourished. EYES: EOMI. Anicteric. HENT: Moist mucous membranes. No scleral icterus. No cervical lymphadenopathy. LUNGS: Clear to auscultation bilaterally. No accessory muscle use. CARDIOVASCULAR: Regular rate and rhythm. No murmur. No JVD. ABDOMEN: Soft, non-tender and non-distended. No palpable masses. EXTREMITIES: No edema. Non-tender. SKIN: No rashes or lesions. Warm. NEUROLOGIC: No focal neurological deficits. CN II-XII grossly intact, but not individually tested. PSYCHIATRIC: Cooperative. Appropriate mood and affect. LABORATORY: [ ] Hematology Labs: Test 03/11/24 04:17 03/10/24 04:36 Range/Units White Blood Count 10.6 # 4.8-10.8 K/uL Red Blood Count 3.16 L 4.00-5.50 MIL/uL Hemoglobin 9.7 L 12.0-16.0 g/dL Hematocrit 31.5 L 36-48 % Mean Corpuscular Volume 99.7 H 79-99 fL Mean Corpuscular Hemoglobin 30.7 27.0-33.0 pg Mean Corpuscular Hemoglobin Concent 30.8 L 32.0-36.0 g/dL Red Cell Distribution Width 13.6 11.0-15.5 % Platelet Count 159 130-400 K/uL Mean Platelet Volume 9.9 7.5-10.5 fL Immature Granulocyte % (Auto) 0.9 0-1 % Neutrophils (%) (Auto) 65.2 40.0-77.0 % Lymphocytes (%) (Auto) 26.2 21.0-51.0 % Monocytes (%) (Auto) 6.7 3.0-13.0 % Eosinophils (%) (Auto) 0.8 0.0-8.0 % Basophils (%) (Auto) 0.2 0.0-5.0 % Neutrophils # (Auto) 6.9 1.8-7.7 K/uL Lymphocytes # (Auto) 2.8 1.0-4.8 K/uL Monocytes # (Auto) 0.7 0.1-1.0 K/uL Eosinophils # (Auto) 0.09 0.00-0.70 K/uL Basophils # (Auto) 0.02 0.00-0.20 K/uL Absolute Immature Granulocyte (auto 0.10 0-1 K/uL Nucleated Red Blood Cells 0.0 0.0-0.19 % Red Blood Cell Morphology See comments Chemistry Labs: Test 03/11/24 04:17 03/10/24 04:36 03/09/24 19:40 Range/Units Sodium Level 139 136-145 mmol/L Potassium Level 4.1 3.5-5.1 mmol/L Chloride Level 104 101-111 mmol/L Carbon Dioxide Level 32 21-32 mmol/L Blood Urea Nitrogen 41 H 7-18 mg/dL Creatinine 2.1 H 0.5-1.0 mg/dL Glomerular Filtration Rate Calc 22 >90 mL/min Random Glucose 84 # 70-105 mg/dL Uric Acid 9.6 H 2.6-7.2 mg/dL Total Calcium 8.3 L 8.5-10.1 mg/dL Phosphorus Level 3.6 2.5-4.9 mg/dL Magnesium Level 1.80 1.80-2.40 mg/dL Iron Level 70 50-170 mcg/dL Total Iron Binding Capacity 220 L 250-450 mcg/dL Percent Iron Saturation 31.8 22-44 % Total Bilirubin 0.2 0.2-1.0 mg/dL Aspartate Amino Transf (AST/SGOT) 23 10-37 U/L Alanine Aminotransferase (ALT/SGPT) 19 12-78 U/L Alkaline Phosphatase 48 L 50-136 U/L Total Protein 6.2 6.0-8.3 g/dL Albumin 2.5 L 3.5-5.0 g/dL Thyroid Stimulating Hormone (TSH) 3.01 # 0.36-3.74 uIU/mL Ferritin 196 H 15-150 ng/mL B-Type Natriuretic Peptide 36 0-100 pg/mL DIAGNOSTICS / RADIOLOGY: REASON: Decreased renal function ORDERING PHYSICIAN: RERE REDMOND PROCEDURE: RENAL - US RENAL SONOGRAM US RENAL SONOGRAM HISTORY: Decreased renal function COMPARISON: None TECHNIQUE: Renal and bladder ultrasound study was performed. FINDINGS: The right kidney measures 10 x 4.6 x 3 cm. The left kidney measures 9.6 x 5 x 4.4 cm. No evidence of hydronephrosis is seen of either kidney. Both kidneys are seen. Bladder is moderately distended. Bladder is partially distended. There is left upper pole renal cyst measuring 16 x 14 mm. IMPRESSION: 1. No hydronephrosis is seen. Left upper pole renal cyst measuring 16 x 14 mm. DICTATED BY: GENNY TELLO MD DATE: 03/10/241722 REASON: Dyspnea/SOB ORDERING PHYSICIAN: DARREL IZAGUIRRE DO PROCEDURE: CXR1VW - CHEST 1VW CHEST 1VW HISTORY: Dyspnea COMPARISON: 07/18/2021 FINDINGS: A frontal projection of the chest was obtained. Mild bilateral pulmonary infiltrates are seen may be related to mild pulmonary vascular congestion with possible superimposed pneumonitis. The heart is borderline enlarged. Degenerative changes are seen. No evidence of aortic calcification is seen. IMPRESSION: 1. Mild bilateral pulmonary infiltrates are seen may be related to mild pulmonary vascular congestion with possible superimposed pneumonitis. DICTATED BY: GENNY TELLO MD DATE: 03/09/24 3024 ASSESSMENT: Patient has mental status changes with metabolic encephalopathy acute on chronic renal failure with underlying diabetic nephropathy with multiple other comorbidities Acute on chronic renal failure Anemia Dementia Bronchitis with wheezing Diabetes mellitus type 2 Hypertension Hypothyroidism Hyperlipidemia PLAN: Labs, diagnostic, radiologic exams reviewed and interpreted by myself and supervising physician. We have reviewed external records in detail Start Venofer 300 mg IV daily x 3 doses. Use bladder scan to rule out urinary retention. Require close monitoring of renal function and electrolytes Order CBC, CMP,and electrolytes in am Continue with renally dosed antibiotics Renal diabetic diet BiPAP as necessary, for respiratory distress Monitor blood pressure adjust medication doses as needed Avoid hypotensive episodes May use Dilaudid 0.5 mg IV every 6 hours as needed for severe pain Monitor blood sugars Strict intake, output, and daily weight should be monitored Please renally adjust medications Avoid nephrotoxic and nonsteroidal drugs Avoid contrast if possible Will continue to monitor renal function, anemia, electrolytes Treatment plan discussed with patient Questions were answered We have discussed with the other team physicians in detail about the care plan We will continue to monitor the patient closely ATTESTATION BY PHYSICIAN I have seen and examined the patient. I reviewed the documentation, medical decision making, and treatment plan as noted by the mid-level provider above. I agree with the findings and plan of care. FAITH ROMERO MD, [facility] Mar 11, 2024 15:03
[2024-03-11] MEDS: Solu-medROL 40MG VIAL IVP SCH (15:31)
[2024-03-11] MEDS: INSULIN humuLIN R 100 UNIT/ML 3ML SQ SCH (16:30)
--- NOTE | 2024-03-11 20:20 | NUR ---
MEDS SHIFT ASSESSMENT DONE, PLEASE REFER TO CHART. DUE MEDS ADMINISTERED, TOLERATED WELL. PIV NOTED TO BE LEAKING, DISCONTINUED WITH CATHETER INTACT. RE-INSERTED PIV G20 TO LEFT HAND, TOLERATED WELL. KEPT RESTED AND COMFORTABLE IN BED WITH HOB ELEVATED. CALL LIGHT WITHIN REACH. BED ALARM ACTIVATED.
[2024-03-12] VITALS (8 sets, daily range): BP systolic 114–151; BP diastolic 68–72; PULSE 70–80; RESP 16–20; TEMP 98–98.7; O2SAT 94–96
[2024-03-12 05:24] LABS: BASOPHILS # (AUTO) 0.03 K/uL (0.00-0.20); BASOPHILS % (AUTO) 0.4 % (0.0-5.0); HEMATOCRIT 29.8 % (36-48); IMMATURE GRANULOCYTE ABSOLUTE 0.14 K/uL (0-1); LYMPHOCYTES # (AUTO) 1.9 K/uL (1.0-4.8); LYMPHOCYTES % (AUTO) 24.2 % (21.0-51.0); MEAN CORPUSCULAR HEMOGLOBIN 30.9 pg (27.0-33.0); MEAN CORPUSCULAR HGB CONC 31.2 g/dL (32.0-36.0); MONOCYTES # (AUTO) 0.4 K/uL (0.1-1.0); MONOCYTES % (AUTO) 5.2 % (3.0-13.0); NEUTROPHILS # (AUTO) 5.2 K/uL (1.8-7.7); NEUTROPHILS % (AUTO) 68.4 % (40.0-77.0); PLATELET COUNT (AUTO) 160 K/uL (130-400); RED BLOOD CELL COUNT(AUTO) 3.01 MIL/uL (4.00-5.50); RED CELL DISTRIBUTION WIDTH 13.5 % (11.0-15.5); WHITE BLOOD COUNT (AUTO) 7.6 K/uL (4.8-10.8)
[2024-03-12 05:44] LABS: ALBUMIN 2.4 g/dL (3.5-5.0); BILIRUBIN,TOTAL 0.2 mg/dL (0.2-1.0); MAGNESIUM 1.7 mg/dL (1.80-2.40); POTASSIUM 4.4 mmol/L (3.5-5.1); TOTAL PROTEIN, SERUM 5.9 g/dL (6.0-8.3)
--- NOTE | 2024-03-12 05:44 | NUR ---
MEDS PT SLEPT AT INTERVALS DURING THE SHIFT. DUE MEDS ADMINISTERED, TOLERATED WELL. KEPT RESTED AND COMFORTABLE IN BED WITH HOB ELEVATED. KEPT BED ALARM ACTIVATED. FOR MORE CARE.
[2024-03-12] MEDS: ceFEPime HCL 1 GM VIAL IVPB SCH (09:12)
--- NOTE | 2024-03-12 09:48 | PN ---
NEPHROLOGY PROGRESS NOTE Date/Time Patient Seen: Mar 12, 2024 Reason for Consultation: 09:48 SUBJECTIVE: This is an 88-year-old female with a past medical history of dementia, diabetes mellitus type 2, hyperlipidemia, hypertension, hypothyroidism, chronic kidney disease. She presented to the emergency room from [facility] with complaints of wheezing, cough, congestion x2 days. Chest x-ray showed mild bilateral pulmonary infiltrates. She has been started on antibiotics and Solu-Medrol as per ID She was noted to have elevated BUN/creatinine. We are consulted for renal failure Renal function and electrolytes are stable. Renal ultrasound noted. Hemoglobin is stable, iron panel is noted. She has been started on Venofer for anemia She was seen in the medical floor, in no acute distress Multiple family members at the bedside Prognosis remains guarded REVIEW OF SYSTEMS: GENERAL: Positive for wheezing, congestion, cough NEUROLOGIC: Negative for any blurry vision, blind spots, double vision, facial asymmetry, dysphagia, dysarthria, hemiparesis, hemisensory deficits, vertigo, ataxia. HEENT: Negative for any head trauma, neck trauma, neck stiffness, photophobia, phonophobia, sinusitis, rhinitis. CARDIAC: Negative for any chest pain, dyspnea on exertion, paroxysmal nocturnal dyspnea, peripheral edema. PULMONARY: Negative for any shortness of breath, wheezing, COPD, or TB exposure. GASTROINTESTINAL: Negative for any abdominal pain, nausea, vomiting, bright red blood per rectum, melena. GENITOURINARY: Negative for any dysuria, hematuria, incontinence. INTEGUMENTARY: Negative for any rashes, cuts, insect bites. RHEUMATOLOGIC: Negative for any joint pains, photosensitive rashes, history of vasculitis or kidney problems. HEMATOLOGIC: Negative for any abnormal bruising, frequent infections or bleeding. PHYSICAL EXAM: GENERAL: Alert and oriented x 3. No acute distress. Well-nourished. EYES: EOMI. Anicteric. HENT: Moist mucous membranes. No scleral icterus. No cervical lymphadenopathy. LUNGS: Clear to auscultation bilaterally. No accessory muscle use. CARDIOVASCULAR: Regular rate and rhythm. No murmur. No JVD. ABDOMEN: Soft, non-tender and non-distended. No palpable masses. EXTREMITIES: No edema. Non-tender. SKIN: No rashes or lesions. Warm. NEUROLOGIC: No focal neurological deficits. CN II-XII grossly intact, but not individually tested. PSYCHIATRIC: Cooperative. Appropriate mood and affect. LABORATORY: [ ] Hematology Labs: Test 03/12/24 05:00 Range/Units White Blood Count 7.6 4.8-10.8 K/uL Red Blood Count 3.01 L 4.00-5.50 MIL/uL Hemoglobin 9.3 L 12.0-16.0 g/dL Hematocrit 29.8 L 36-48 % Mean Corpuscular Volume 99.0 79-99 fL Mean Corpuscular Hemoglobin 30.9 27.0-33.0 pg Mean Corpuscular Hemoglobin Concent 31.2 L 32.0-36.0 g/dL Red Cell Distribution Width 13.5 11.0-15.5 % Platelet Count 160 130-400 K/uL Mean Platelet Volume 9.9 7.5-10.5 fL Immature Granulocyte % (Auto) 1.8 H 0-1 % Neutrophils (%) (Auto) 68.4 40.0-77.0 % Lymphocytes (%) (Auto) 24.2 21.0-51.0 % Monocytes (%) (Auto) 5.2 3.0-13.0 % Eosinophils (%) (Auto) 0.0 0.0-8.0 % Basophils (%) (Auto) 0.4 0.0-5.0 % Neutrophils # (Auto) 5.2 1.8-7.7 K/uL Lymphocytes # (Auto) 1.9 1.0-4.8 K/uL Monocytes # (Auto) 0.4 0.1-1.0 K/uL Eosinophils # (Auto) 0.00 0.00-0.70 K/uL Basophils # (Auto) 0.03 0.00-0.20 K/uL Absolute Immature Granulocyte (auto 0.14 0-1 K/uL Nucleated Red Blood Cells 0.0 0.0-0.19 % Chemistry Labs: Test 03/12/24 05:04 03/12/24 05:00 03/11/24 04:17 Range/Units Whole Blood Glucose 141 H 70-110 MG/DL Sodium Level 142 136-145 mmol/L Potassium Level 4.4 3.5-5.1 mmol/L Chloride Level 104 101-111 mmol/L Carbon Dioxide Level 32 21-32 mmol/L Blood Urea Nitrogen 42 H 7-18 mg/dL Creatinine 2.0 H 0.5-1.0 mg/dL Glomerular Filtration Rate Calc 23 >90 mL/min Random Glucose 124 H 70-105 mg/dL Total Calcium 8.0 L 8.5-10.1 mg/dL Magnesium Level 1.70 L 1.80-2.40 mg/dL Total Bilirubin 0.2 0.2-1.0 mg/dL Aspartate Amino Transf (AST/SGOT) 29 10-37 U/L Alanine Aminotransferase (ALT/SGPT) 19 12-78 U/L Alkaline Phosphatase 48 L 50-136 U/L Total Protein 5.9 L 6.0-8.3 g/dL Albumin 2.4 L 3.5-5.0 g/dL Uric Acid 9.6 H 2.6-7.2 mg/dL Phosphorus Level 3.6 2.5-4.9 mg/dL Iron Level 70 50-170 mcg/dL Total Iron Binding Capacity 220 L 250-450 mcg/dL Percent Iron Saturation 31.8 22-44 % Thyroid Stimulating Hormone (TSH) 3.01 # 0.36-3.74 uIU/mL DIAGNOSTICS / RADIOLOGY: REASON: Decreased renal function ORDERING PHYSICIAN: RERE REDMOND PROCEDURE: RENAL - US RENAL SONOGRAM US RENAL SONOGRAM HISTORY: Decreased renal function COMPARISON: None TECHNIQUE: Renal and bladder ultrasound study was performed. FINDINGS: The right kidney measures 10 x 4.6 x 3 cm. The left kidney measures 9.6 x 5 x 4.4 cm. No evidence of hydronephrosis is seen of either kidney. Both kidneys are seen. Bladder is moderately distended. Bladder is partially distended. There is left upper pole renal cyst measuring 16 x 14 mm. IMPRESSION: 1. No hydronephrosis is seen. Left upper pole renal cyst measuring 16 x 14 mm. DICTATED BY: GENNY TELLO MD DATE: 03/10/24 172 REASON: Dyspnea/SOB ORDERING PHYSICIAN: DARREL IZAGUIRRE DO PROCEDURE: CXR1VW - CHEST 1VW CHEST 1VW HISTORY: Dyspnea COMPARISON: 07/18/2021 FINDINGS: A frontal projection of the chest was obtained. Mild bilateral pulmonary infiltrates are seen may be related to mild pulmonary vascular congestion with possible superimposed pneumonitis. The heart is borderline enlarged. Degenerative changes are seen. No evidence of aortic calcification is seen. IMPRESSION: 1. Mild bilateral pulmonary infiltrates are seen may be related to mild pulmonary vascular congestion with possible superimposed pneumonitis. DICTATED BY: GENNY TELLO MD DATE: 03/09/24 1665 ASSESSMENT: Patient has mental status changes with metabolic encephalopathy acute on chronic renal failure with underlying diabetic nephropathy with multiple other comorbidities Acute on chronic renal failure Anemia Dementia Bronchitis with wheezing Diabetes mellitus type 2 Hypertension Hypothyroidism Hyperlipidemia PLAN: Labs, diagnostic, radiologic exams reviewed and interpreted by myself and supervising physician. We have reviewed external records in detail Continue Venofer 300 mg IV daily x 3 doses. Require close monitoring of renal function and electrolytes Order CBC, CMP,and electrolytes in am Continue with renally dosed antibiotics as per ID Renal diabetic diet BiPAP as necessary, for respiratory distress Monitor blood pressure adjust medication doses as needed Avoid hypotensive episodes May use Dilaudid 0.5 mg IV every 6 hours as needed for severe pain Monitor blood sugars Strict intake, output, and daily weight should be monitored Please renally adjust medications Avoid nephrotoxic and nonsteroidal drugs Avoid contrast if possible Will continue to monitor renal function, anemia, electrolytes Treatment plan discussed with patient Questions were answered We have discussed with the other team physicians in detail about the care plan We will continue to monitor the patient closely ATTESTATION BY PHYSICIAN I have seen and examined the patient. I reviewed the documentation, medical decision making, and treatment plan as noted by the mid-level provider above. I agree with the findings and plan of care. FAITH ROMERO MD, [facility] Mar 12, 2024 09:48
[2024-03-12] MEDS ORDERED: guaiFENesin-DM 200/20MG 10ML PO PRN (12:30)
--- NOTE | 2024-03-12 16:40 | PN ---
INFECTIOUS DISEASE PROGRESS NOTE Date of Service: Mar 12, 2024 SUBJECTIVE: This is an 88-year-old female patient resident of [facility] who was sent over to the hospital for chief complaint of wheezing, shortness of breaths, cough and congestion. Patient was seen and examined at bedside in room 310. Patient is awake and was able to answers basic questions. The wheezing wheezing has improved. Patient continues with coughing episodes. We will start patient on guaifenesin 10 mL p.o. every 6 hours p.r.n.. Was have Physical therapy evaluate and treat. Patient is afebrile, temperature is 98.2. Will continue on cefepime and doxycycline. Continue on oxygen support via nasal cannula. Family members visiting at bedside. We will continue to follow patient's care. PHYSICAL EXAM EYES: Anicteric. Pupils equal and reactive. HENT: No oral thrush seen, moist Oral mucosa. NECK: Supple, no JVD or thyromegaly. LUNGS: Good air entry. Crackles/wheezing. Oxygen support. CARDIOVASCULAR: S1, S2 regular. No murmur heard. ABDOMEN: Soft, non tender, bowel sounds present, no organomegaly. CENTRAL NERVOUS SYSTEM: Awake, alert, oriented x 1. SKIN: No rashes, no swelling. LYMPHATICS: No peripheral lymphadenopathy. MUSCULOSKELETAL: No joint swelling, erythema or tenderness. EXTREMITIES: No cyanosis or clubbing. Weakness. BACK: No deformity, no pressure ulcer. GENITOURINARY: No dysuria or hematuria. Vital Sign (Last 12 Hours) 03/12/24 03/12/24 03/12/24 03/12/24 08:00 11:42 11:43 11:59 Temp 98.2 98.4 Pulse 78 70 76 Resp 19 18 20 18 B/P (MAP) 147/72 144/68 Pulse Ox 95 98 O2 Delivery Nasal Cannula N/Cannula Low lpm Nasal Cannula O2 Flow Rate 3.0 3.0 3.0 FiO2 28 32 28 03/12/24 16:00 Temp 98.8 Pulse 79 Resp 16 B/P (MAP) 141/68 Pulse Ox 95 O2 Delivery Nasal Cannula O2 Flow Rate 3.0 FiO2 28 Intake & Output (last 24hrs) 03/11/24 03/11/24 03/12/24 15:00 23:00 07:00 Intake Total 950 ml 429.0 ml Output Total 1500 ml 900 ml Balance -550 ml -471.0 ml LABS: Laboratory: Test 03/12/24 15:37 03/12/24 05:00 03/11/24 04:17 Range/Units Whole Blood Glucose 117 H 70-110 MG/DL White Blood Count 7.6 4.8-10.8 K/uL Red Blood Count 3.01 L 4.00-5.50 MIL/uL Hemoglobin 9.3 L 12.0-16.0 g/dL Hematocrit 29.8 L 36-48 % Mean Corpuscular Volume 99.0 79-99 fL Mean Corpuscular Hemoglobin 30.9 27.0-33.0 pg Mean Corpuscular Hemoglobin Concent 31.2 L 32.0-36.0 g/dL Red Cell Distribution Width 13.5 11.0-15.5 % Platelet Count 160 130-400 K/uL Mean Platelet Volume 9.9 7.5-10.5 fL Immature Granulocyte % (Auto) 1.8 H 0-1 % Neutrophils (%) (Auto) 68.4 40.0-77.0 % Lymphocytes (%) (Auto) 24.2 21.0-51.0 % Monocytes (%) (Auto) 5.2 3.0-13.0 % Eosinophils (%) (Auto) 0.0 0.0-8.0 % Basophils (%) (Auto) 0.4 0.0-5.0 % Neutrophils # (Auto) 5.2 1.8-7.7 K/uL Lymphocytes # (Auto) 1.9 1.0-4.8 K/uL Monocytes # (Auto) 0.4 0.1-1.0 K/uL Eosinophils # (Auto) 0.00 0.00-0.70 K/uL Basophils # (Auto) 0.03 0.00-0.20 K/uL Absolute Immature Granulocyte (auto 0.14 0-1 K/uL Nucleated Red Blood Cells 0.0 0.0-0.19 % Sodium Level 142 136-145 mmol/L Potassium Level 4.4 3.5-5.1 mmol/L Chloride Level 104 101-111 mmol/L Carbon Dioxide Level 32 21-32 mmol/L Blood Urea Nitrogen 42 H 7-18 mg/dL Creatinine 2.0 H 0.5-1.0 mg/dL Glomerular Filtration Rate Calc 23 >90 mL/min Random Glucose 124 H 70-105 mg/dL Total Calcium 8.0 L 8.5-10.1 mg/dL Magnesium Level 1.70 L 1.80-2.40 mg/dL Total Bilirubin 0.2 0.2-1.0 mg/dL Aspartate Amino Transf (AST/SGOT) 29 10-37 U/L Alanine Aminotransferase (ALT/SGPT) 19 12-78 U/L Alkaline Phosphatase 48 L 50-136 U/L Total Protein 5.9 L 6.0-8.3 g/dL Albumin 2.4 L 3.5-5.0 g/dL Uric Acid 9.6 H 2.6-7.2 mg/dL Phosphorus Level 3.6 2.5-4.9 mg/dL Iron Level 70 50-170 mcg/dL Total Iron Binding Capacity 220 L 250-450 mcg/dL Percent Iron Saturation 31.8 22-44 % Thyroid Stimulating Hormone (TSH) 3.01 # 0.36-3.74 uIU/mL ASSESSMENT: Hypoxic respiratory failure, requiring oxygen support. Aspiration Pneumonia. Urinary tract infection. Acute on chronic renal failure. Diabetes mellitus. Hypertension. Dementia. Debility. PLAN: Continue Solu-Medrol 40 mg IV daily. Continue doxycycline IV. Continue cefepime IV. Continue DuoNebs. Continue oxygen support. Start guaifenesin7 mL p.o. every 6 hours p.r.n. cough. Nephrology consulted and following. Avoid nephrotoxic medications. Glucometer checks a.c./hs and cover with insulin per sliding scale protocol. Physical therapy to evaluate and treat. This case was reviewed and discussed with my supervising physician and the above assessment and plan was formulated and agreed upon. ATTESTATION BY PHYSICIAN I have seen and examined the patient. I reviewed the documentation, medical decision making, and treatment plan as noted by the mid-level provider above. I agree with the findings and plan of care. BRAD MCGRAW MD, [facility] Mar 12, 2024 16:40
--- NOTE | 2024-03-12 20:00 | NUR ---
MEDS SHIFT ASSESSMENT DONE, PLEASE REFER TO CHART. PT REMOVED HER NC, PLACED IT BACK AND MAINTAINED AT 3LPM. RE-POSITIONED IN BED WITH HOB ELEVATED. DUE MEDS ADMINISTERED, TOLERATED WELL. KEPT RESTED AND COMFORTABLE IN BED. KEPT BED ALARM ACTIVATED. ENCOURAGED TO REST AND SLEEP.
[2024-03-13] VITALS (11 sets, daily range): BP systolic 122–139; BP diastolic 65–87; PULSE 62–80; RESP 16–20; TEMP 97.6–98.9; O2SAT 95–96
--- NOTE | 2024-03-13 00:45 | NUR ---
BATH PT PULLED OUT HER PIV WITH CATHETER INTACT. PT HAD A LARGE BM AT THIS TIME. PCP IN NAD GAVE PT A BED BATH, TOLERATED ACTIVITY WELL. RE-POSITIONED COMFORTABLY IN BED WITH HOB ELEVATED. PIV RE-INSERTED TO LFA G18 THEN CONTINUED IV DOXY INFUSION. KEPT BED ALARM ACTIVATED. WILL KEPT ON CLOSE WATCH.
--- NOTE | 2024-03-13 05:25 | NUR ---
MEDS [employer] TECHNICIAN AWAKENED PT FOR BLOOD DRAW. DUE MEDS ADMINISTERED, TOLERATED WELL. KEPT RESTED AND COMFORTABLE IN BED. FOR MORE CARE.
[2024-03-13 05:58] LABS: HEMATOCRIT 32.2 % (36-48); MEAN CORPUSCULAR HEMOGLOBIN 30.9 pg (27.0-33.0); MEAN CORPUSCULAR HGB CONC 31.4 g/dL (32.0-36.0); MEAN CORPUSCULAR VOLUME 98.5 fL (79-99); NUCLEATED RED BLOOD CELLS 0.4 % (0.0-0.19); RED BLOOD CELL COUNT(AUTO) 3.27 MIL/uL (4.00-5.50); RED CELL DISTRIBUTION WIDTH 13.5 % (11.0-15.5); WHITE BLOOD COUNT (AUTO) 8.4 K/uL (4.8-10.8)
[2024-03-13 06:11] LABS: CREATININE 1.8 mg/dL (0.5-1.0); MAGNESIUM 1.7 mg/dL (1.80-2.40); POTASSIUM 4.1 mmol/L (3.5-5.1)
[2024-03-13] MEDS: IpraTROPium/alBUTERol SULFATE 3 ML SOLUTION IH SCH (07:29)
--- NOTE | 2024-03-13 12:35 | PN ---
NEPHROLOGY PROGRESS NOTE Date/Time Patient Seen: Mar 13, 2024 Reason for Consultation: 12:33 SUBJECTIVE: This is an 88-year-old female with a past medical history of dementia, diabetes mellitus type 2, hyperlipidemia, hypertension, hypothyroidism, chronic kidney disease. She presented to the emergency room from [facility] with complaints of wheezing, cough, congestion x2 days. Chest x-ray showed mild bilateral pulmonary infiltrates. She has been started on antibiotics and Solu-Medrol She was noted to have elevated BUN/creatinine. We are consulted for renal failure Renal function and electrolytes are stable. Renal ultrasound noted. Hemoglobin is stable, iron panel is noted. Continues on Venofer for anemia Pending PT evaluation She was seen in the medical floor, in no acute distress Multiple family members at the bedside Prognosis remains guarded REVIEW OF SYSTEMS: GENERAL: Positive for wheezing, congestion, cough NEUROLOGIC: Negative for any blurry vision, blind spots, double vision, facial asymmetry, dysphagia, dysarthria, hemiparesis, hemisensory deficits, vertigo, ataxia. HEENT: Negative for any head trauma, neck trauma, neck stiffness, photophobia, phonophobia, sinusitis, rhinitis. CARDIAC: Negative for any chest pain, dyspnea on exertion, paroxysmal nocturnal dyspnea, peripheral edema. PULMONARY: Negative for any shortness of breath, wheezing, COPD, or TB exposure. GASTROINTESTINAL: Negative for any abdominal pain, nausea, vomiting, bright red blood per rectum, melena. GENITOURINARY: Negative for any dysuria, hematuria, incontinence. INTEGUMENTARY: Negative for any rashes, cuts, insect bites. RHEUMATOLOGIC: Negative for any joint pains, photosensitive rashes, history of vasculitis or kidney problems. HEMATOLOGIC: Negative for any abnormal bruising, frequent infections or bleeding. PHYSICAL EXAM: GENERAL: Alert and oriented x 3. No acute distress. Well-nourished. EYES: EOMI. Anicteric. HENT: Moist mucous membranes. No scleral icterus. No cervical lymphadenopathy. LUNGS: Clear to auscultation bilaterally. No accessory muscle use. CARDIOVASCULAR: Regular rate and rhythm. No murmur. No JVD. ABDOMEN: Soft, non-tender and non-distended. No palpable masses. EXTREMITIES: No edema. Non-tender. SKIN: No rashes or lesions. Warm. NEUROLOGIC: No focal neurological deficits. CN II-XII grossly intact, but not individually tested. PSYCHIATRIC: Cooperative. Appropriate mood and affect. LABORATORY: [ ] Hematology Labs: Test 03/13/24 05:24 03/12/24 05:00 Range/Units White Blood Count 8.4 4.8-10.8 K/uL Red Blood Count 3.27 L 4.00-5.50 MIL/uL Hemoglobin 10.1 L 12.0-16.0 g/dL Hematocrit 32.2 L 36-48 % Mean Corpuscular Volume 98.5 79-99 fL Mean Corpuscular Hemoglobin 30.9 27.0-33.0 pg Mean Corpuscular Hemoglobin Concent 31.4 L 32.0-36.0 g/dL Red Cell Distribution Width 13.5 11.0-15.5 % Platelet Count 157 130-400 K/uL Mean Platelet Volume 9.8 7.5-10.5 fL Nucleated Red Blood Cells 0.4 H 0.0-0.19 % Immature Granulocyte % (Auto) 1.8 H 0-1 % Neutrophils (%) (Auto) 68.4 40.0-77.0 % Lymphocytes (%) (Auto) 24.2 21.0-51.0 % Monocytes (%) (Auto) 5.2 3.0-13.0 % Eosinophils (%) (Auto) 0.0 0.0-8.0 % Basophils (%) (Auto) 0.4 0.0-5.0 % Neutrophils # (Auto) 5.2 1.8-7.7 K/uL Lymphocytes # (Auto) 1.9 1.0-4.8 K/uL Monocytes # (Auto) 0.4 0.1-1.0 K/uL Eosinophils # (Auto) 0.00 0.00-0.70 K/uL Basophils # (Auto) 0.03 0.00-0.20 K/uL Absolute Immature Granulocyte (auto 0.14 0-1 K/uL Chemistry Labs: Test 03/13/24 10:43 03/13/24 05:24 03/12/24 05:00 Range/Units Whole Blood Glucose 101 70-110 MG/DL Sodium Level 145 136-145 mmol/L Potassium Level 4.1 3.5-5.1 mmol/L Chloride Level 106 101-111 mmol/L Carbon Dioxide Level 32 21-32 mmol/L Blood Urea Nitrogen 43 H 7-18 mg/dL Creatinine 1.8 H 0.5-1.0 mg/dL Glomerular Filtration Rate Calc 27 >90 mL/min Random Glucose 91 70-105 mg/dL Total Calcium 8.2 L 8.5-10.1 mg/dL Magnesium Level 1.70 L 1.80-2.40 mg/dL Total Bilirubin 0.2 0.2-1.0 mg/dL Aspartate Amino Transf (AST/SGOT) 29 10-37 U/L Alanine Aminotransferase (ALT/SGPT) 19 12-78 U/L Alkaline Phosphatase 48 L 50-136 U/L Total Protein 5.9 L 6.0-8.3 g/dL Albumin 2.4 L 3.5-5.0 g/dL DIAGNOSTICS / RADIOLOGY: REASON: Decreased renal function ORDERING PHYSICIAN: RERE REDMOND PROCEDURE: RENAL - US RENAL SONOGRAM US RENAL SONOGRAM HISTORY: Decreased renal function COMPARISON: None TECHNIQUE: Renal and bladder ultrasound study was performed. FINDINGS: The right kidney measures 10 x 4.6 x 3 cm. The left kidney measures 9.6 x 5 x 4.4 cm. No evidence of hydronephrosis is seen of either kidney. Both kidneys are seen. Bladder is moderately distended. Bladder is partially distended. There is left upper pole renal cyst measuring 16 x 14 mm. IMPRESSION: 1. No hydronephrosis is seen. Left upper pole renal cyst measuring 16 x 14 mm. DICTATED BY: GENNY TELLO MD DATE: 03/10/24 8303 REASON: Dyspnea/SOB ORDERING PHYSICIAN: DARREL IZAGUIRRE DO PROCEDURE: CXR1VW - CHEST 1VW CHEST 1VW HISTORY: Dyspnea COMPARISON: 07/18/2021 FINDINGS: A frontal projection of the chest was obtained. Mild bilateral pulmonary infiltrates are seen may be related to mild pulmonary vascular congestion with possible superimposed pneumonitis. The heart is borderline enlarged. Degenerative changes are seen. No evidence of aortic calcification is seen. IMPRESSION: 1. Mild bilateral pulmonary infiltrates are seen may be related to mild pulmonary vascular congestion with possible superimposed pneumonitis. DICTATED BY: GENNY TELLO MD DATE: 03/09/24 6004 ASSESSMENT: Patient has mental status changes with metabolic encephalopathy acute on chronic renal failure with underlying diabetic nephropathy with multiple other comorbidities Acute on chronic renal failure Anemia Dementia Bronchitis with wheezing Diabetes mellitus type 2 Hypertension Hypothyroidism Hyperlipidemia PLAN: Labs, diagnostic, radiologic exams reviewed and interpreted by myself and supervising physician. We have reviewed external records in detail Pending PT evaluation Continue Venofer 300 mg IV daily x 3 doses. Require close monitoring of renal function and electrolytes Order CBC, CMP,and electrolytes in am Continue with renally dosed antibiotics as per ID Renal diabetic diet BiPAP as necessary, for respiratory distress Monitor blood pressure adjust medication doses as needed Avoid hypotensive episodes May use Dilaudid 0.5 mg IV every 6 hours as needed for severe pain Monitor blood sugars Strict intake, output, and daily weight should be monitored Please renally adjust medications Avoid nephrotoxic and nonsteroidal drugs Avoid contrast if possible Will continue to monitor renal function, anemia, electrolytes Treatment plan discussed with patient Questions were answered We have discussed with the other team physicians in detail about the care plan We will continue to monitor the patient closely ATTESTATION BY PHYSICIAN I have seen and examined the patient. I reviewed the documentation, medical decision making, and treatment plan as noted by the mid-level provider above. I agree with the findings and plan of care. FAITH ROMERO MD, [facility] Mar 13, 2024 12:35
--- NOTE | 2024-03-13 20:00 | NUR ---
MEDS SHIFT ASSESSMENT DONE, PLEASE REFER TO CHART. DUE MEDS ADMINISTERED, TOLERATED WELL. PIV NOTED TO BE INFILTRATED, DISCONTINUED PIV WITH CATHETER INTACT. KEPT RESTED AND COMFORTABLE IN BED. BED ALARM KEPT ACTIVATED. KEPT DOOR OPEN FOR CLOSE WATCH.
[2024-03-13] MEDS: guaiFENesin SUGAR-FREE 100 MG/5 ML UDCUP PO PRN (22:43)
[2024-03-14] VITALS (12 sets, daily range): BP systolic 123–141; BP diastolic 67–80; PULSE 66–82; RESP 17–20; TEMP 97.7–98.6; O2SAT 93–98
--- NOTE | 2024-03-14 00:09 | PN ---
INFECTIOUS DISEASE FOLLOWUP NOTE DATE OF SERVICE: 03/13/2024 SUBJECTIVE: The patient is seen and examined at bedside today. No sore throat, no rhinorrhea. No ____. No weight loss. No bleeding tendency. Denied joint pain, no joint swelling. No rashes or itchiness. Appetite is good. Renal function is improving. PHYSICAL EXAMINATION: VITAL SIGNS: Temperature 97.8. EYES: No icterus. Pupils equal and reactive. HENT: No oral thrush seen. Moist oral mucosa. NECK: Supple, no JVD or thyromegaly. LUNGS: Good air entry. No rales, no rhonchi. CARDIOVASCULAR: S1, S2, regular. No murmur heard. ABDOMEN: Obese, soft, nontender. Bowel sounds present. CENTRAL NERVOUS SYSTEM: Awake, alert and oriented x 3. No focal deficits. SKIN: No rashes, no itchiness. LYMPHATIC: No peripheral lymphadenopathy. BACK: No deformity, no pressure ulcer. ASSESSMENT: * The patient is an 88-year-old female admitted with shortness of breath and pneumonia. * Acute hypoxic respiratory failure. * Morbid obesity. * Acute on chronic renal failure. * Diabetes mellitus. * Hypothyroidism. * ____. PLAN: * Continue nutritional support. * Continue pain management. * Continue cefepime. * Continue doxycycline. * Continue oxygen. * Continue physical therapy. * Continue antidiabetic. * Monitor electrolytes and correct as needed. TID: [id number] RECEIPT: [id number]
[2024-03-14 04:33] LABS: BASOPHILS # (AUTO) 0.02 K/uL (0.00-0.20); BASOPHILS % (AUTO) 0.3 % (0.0-5.0); EOSINOPHILS # (AUTO) 0.01 K/uL (0.00-0.70); EOSINOPHILS % (AUTO) 0.1 % (0.0-8.0); HEMATOCRIT 32.3 % (36-48); IMMATURE GRANULOCYTE ABSOLUTE 0.17 K/uL (0-1); LYMPHOCYTES # (AUTO) 1.6 K/uL (1.0-4.8); LYMPHOCYTES % (AUTO) 21.7 % (21.0-51.0); MEAN CORPUSCULAR HGB CONC 32.2 g/dL (32.0-36.0); MEAN CORPUSCULAR VOLUME 96.1 fL (79-99); MONOCYTES # (AUTO) 0.4 K/uL (0.1-1.0); MONOCYTES % (AUTO) 5.1 % (3.0-13.0); NEUTROPHILS # (AUTO) 5.1 K/uL (1.8-7.7); NEUTROPHILS % (AUTO) 70.5 % (40.0-77.0); NUCLEATED RED BLOOD CELLS 0.4 % (0.0-0.19); PLATELET COUNT (AUTO) 152 K/uL (130-400); RED BLOOD CELL COUNT(AUTO) 3.36 MIL/uL (4.00-5.50); RED CELL DISTRIBUTION WIDTH 13.6 % (11.0-15.5); WHITE BLOOD COUNT (AUTO) 7.3 K/uL (4.8-10.8)
[2024-03-14 04:43] LABS: MAGNESIUM 1.6 mg/dL (1.80-2.40); POTASSIUM 4.6 mmol/L (3.5-5.1)
--- NOTE | 2024-03-14 05:35 | NUR ---
MEDS PT SLEPT AT INTERVALS DURING THE SHIFT. AWAKENED FOR DUE MEDS, TOLERATED WELL. KEPT WARM AND DRY. FOR MORE CARE.
[2024-03-14] MEDS ORDERED: MAGNESIUM 4GM PREMIX 100ML 100 ML IV SCH (12:30)
--- NOTE | 2024-03-14 13:12 | PN ---
NEPHROLOGY PROGRESS NOTE Date/Time Patient Seen: Mar 14, 2024 Reason for Consultation: 13:11 SUBJECTIVE: This is an 88-year-old female with a past medical history of dementia, diabetes mellitus type 2, hyperlipidemia, hypertension, hypothyroidism, chronic kidney disease. She presented to the emergency room from [facility] with complaints of wheezing, cough, congestion x2 days. Chest x-ray showed mild bilateral pulmonary infiltrates. She has been started on antibiotics and Solu-Medrol She was noted to have elevated BUN/creatinine. We are consulted for renal failure Renal function and electrolytes are stable. Renal ultrasound noted. Pending PT evaluation She was seen in the medical floor, in no acute distress Prognosis remains guarded REVIEW OF SYSTEMS: GENERAL: Positive for wheezing, congestion, cough NEUROLOGIC: Negative for any blurry vision, blind spots, double vision, facial asymmetry, dysphagia, dysarthria, hemiparesis, hemisensory deficits, vertigo, at axia. HEENT: Negative for any head trauma, neck trauma, neck stiffness, photophobia, phonophobia, sinusitis, rhinitis. CARDIAC: Negative for any chest pain, dyspnea on exertion, paroxysmal nocturnal dyspnea, peripheral edema. PULMONARY: Negative for any shortness of breath, wheezing, COPD, or TB exposure. GASTROINTESTINAL: Negative for any abdominal pain, nausea, vomiting, bright red blood per rectum, melena. GENITOURINARY: Negative for any dysuria, hematuria, incontinence. INTEGUMENTARY: Negative for any rashes, cuts, insect bites. RHEUMATOLOGIC: Negative for any joint pains, photosensitive rashes, history of vasculitis or kidney problems. HEMATOLOGIC: Negative for any abnormal bruising, frequent infections or bleedin g. PHYSICAL EXAM: GENERAL: Alert and oriented x 3. No acute distress. Well-nourished. EYES: EOMI. Anicteric. HENT: Moist mucous membranes. No scleral icterus. No cervical lymphadenopathy. LUNGS: Clear to auscultation bilaterally. No accessory muscle use. CARDIOVASCULAR: Regular rate and rhythm. No murmur. No JVD. ABDOMEN: Soft, non-tender and non-distended. No palpable masses. EXTREMITIES: No edema. Non-tender. SKIN: No rashes or lesions. Warm. NEUROLOGIC: No focal neurological deficits. CN II-XII grossly intact, but not individually tested. PSYCHIATRIC: Cooperative. Appropriate mood and affect. LABORATORY: [ ] Hematology Labs: Test 1/27/25 04:22 Range/Units White Blood Count 7.3 4.8-10.8 K/uL Red Blood Count 3.36 L 4.00-5.50 MIL/uL Hemoglobin 10.4 L 12.0-16.0 g/dL Hematocrit 32.3 L 36-48 % Mean Corpuscular Volume 96.1 79-99 fL Mean Corpuscular Hemoglobin 31.0 27.0-33.0 pg Mean Corpuscular Hemoglobin Concent 32.2 32.0-36.0 g/dL Red Cell Distribution Width 13.6 11.0-15.5 % Platelet Count 152 130-400 K/uL Mean Platelet Volume 9.5 7.5-10.5 fL Immature Granulocyte % (Auto) 2.3 H 0-1 % Neutrophils (%) (Auto) 70.5 40.0-77.0 % Lymphocytes (%) (Auto) 21.7 21.0-51.0 % Monocytes (%) (Auto) 5.1 3.0-13.0 % Eosinophils (%) (Auto) 0.1 0.0-8.0 % Basophils (%) (Auto) 0.3 0.0-5.0 % Neutrophils # (Auto) 5.1 1.8-7.7 K/uL Lymphocytes # (Auto) 1.6 1.0-4.8 K/uL Monocytes # (Auto) 0.4 0.1-1.0 K/uL Eosinophils # (Auto) 0.01 0.00-0.70 K/uL Basophils # (Auto) 0.02 0.00-0.20 K/uL Absolute Immature Granulocyte (auto 0.17 0-1 K/uL Nucleated Red Blood Cells 0.4 H 0.0-0.19 % Chemistry Labs: Test 03/14/24 11:57 03/14/24 04:22 Range/Units Whole Blood Glucose 84 70-110 MG/DL Sodium Level 143 136-145 mmol/L Potassium Level 4.6 3.5-5.1 mmol/L Chloride Level 106 101-111 mmol/L Carbon Dioxide Level 31 21-32 mmol/L Blood Urea Nitrogen 52 H 7-18 mg/dL Creatinine 2.0 H 0.5-1.0 mg/dL Glomerular Filtration Rate Calc 23 >90 mL/min Random Glucose 117 H 70-105 mg/dL Total Calcium 8.4 L 8.5-10.1 mg/dL Magnesium Level 1.60 L 1.80-2.40 mg/dL DIAGNOSTICS / RADIOLOGY: REASON: Decreased renal function ORDERING PHYSICIAN: RERE REDMOND PROCEDURE: RENAL - US RENAL SONOGRAM US RENAL SONOGRAM HISTORY: Decreased renal function COMPARISON: None TECHNIQUE: Renal and bladder ultrasound study was performed. FINDINGS: The right kidney measures 10 x 4.6 x 3 cm. The left kidney measures 9.6 x 5 x 4.4 cm. No evidence of hydronephrosis is seen of either kidney. Both kidneys are seen. Bladder is moderately distended. Bladder is partially distended. There is left upper pole renal cyst measuring 16 x 14 mm. IMPRESSION: 1. No hydronephrosis is seen. Left upper pole renal cyst measuring 16 x 14 mm. DICTATED BY: GENNY TELLO MD DATE: 03/10/24 1723 REASON: Dyspnea/SOB ORDERING PHYSICIAN: DARREL IZAGUIRRE DO PROCEDURE: CXR1VW - CHEST 1VW CHEST 1VW HISTORY: Dyspnea COMPARISON: 07/18/2021 FINDINGS: A frontal projection of the chest was obtained. Mild bilateral pulmonary infiltrates are seen may be related to mild pulmonary vascular congestion with possible superimposed pneumonitis. The heart is borderline enlarged. Degenerative changes are seen. No evidence of aortic calcification is seen. IMPRESSION: 1. Mild bilateral pulmonary infiltrates are seen may be related to mild pulmonary vascular congestion with possible superimposed pneumonitis. DICTATED BY: GENNY ETLLO MD DATE: 03/09/24 9311 ASSESSMENT: Patient has mental status changes with metabolic encephalopathy acute on chronic renal failure with underlying diabetic nephropathy with multiple other comorbidities Acute on chronic renal failure Anemia Dementia Bronchitis with wheezing Diabetes mellitus type 2 Hypertension Hypothyroidism Hyperlipidemia PLAN: Labs, diagnostic, radiologic exams reviewed and interpreted by myself and supervising physician. We have reviewed external records in detail Require close monitoring of renal function and electrolytes Order CBC, CMP,and electrolytes in am Continue with renally dosed antibiotics as per ID Renal diabetic diet BiPAP as necessary, for respiratory distress Monitor blood pressure adjust medication doses as needed Avoid hypotensive episodes May use Dilaudid 0.5 mg IV every 6 hours as needed for severe pain Monitor blood sugars Strict intake, output, and daily weight should be monitored Please renally adjust medications Avoid nephrotoxic and nonsteroidal drugs Avoid contrast if possible Will continue to monitor renal function, anemia, electrolytes Treatment plan discussed with patient Questions were answered We have discussed with the other team physicians in detail about the care plan We will continue to monitor the patient closely ATTESTATION BY PHYSICIAN I have seen and examined the patient. I reviewed the documentation, medical decision making, and treatment plan as noted by the mid-level provider above. I agree with the findings and plan of care. FAITH ROMERO MD, [facility] Mar 14, 2024 13:12
--- NOTE | 2024-03-14 17:38 | PN ---
INFECTIOUS DISEASE PROGRESS NOTE Date of Service: Mar 14, 2024 SUBJECTIVE: This is an 88-year-old female patient resident of [facility] who was sent over to the hospital for chief complaint of wheezing, shortness of breaths, cough and congestion. Patient was seen and examined at bedside in room 310. Patient is awake. No dyspnea was observe, patient however continues on oxygen via nasal cannula at 2 liters/minute. Wheezing has improved. No fever, temperature is 98.2. Will continue on cefepime and doxycycline. We will change doxycycline to p.o. Per report patient is not performing well with physical therapy. We will continue to follow patient's care. PHYSICAL EXAM EYES: Anicteric. Pupils equal and reactive. HENT: No oral thrush seen, moist Oral mucosa. NECK: Supple, no JVD or thyromegaly. LUNGS: Good air entry. Crackles/wheezing improved. On Oxygen support. CARDIOVASCULAR: S1, S2 regular. No murmur heard. ABDOMEN: Soft, non tender, bowel sounds present, no organomegaly. CENTRAL NERVOUS SYSTEM: Awake, alert, oriented x 1. SKIN: No rashes, no swelling. LYMPHATICS: No peripheral lymphadenopathy. MUSCULOSKELETAL: No joint swelling, erythema or tenderness. EXTREMITIES: No cyanosis or clubbing. Weakness. BACK: No deformity, no pressure ulcer. GENITOURINARY: No dysuria or hematuria. Vital Sign (Last 12 Hours) 03/14/24 03/14/24 03/14/24 03/14/24 07:26 08:04 09:00 11:10 Temp 98.2 Pulse 66 75 70 Resp 18 17 18 B/P (MAP) 131/67 Pulse Ox 93 93 O2 Delivery Nasal Cannula Nasal Cannula* ETT Piece+ O2 Flow Rate 2.0 2 FiO2 N/A 03/14/24 03/14/24 12:26 15:58 Temp 98.2 98.6 Pulse 80 76 Resp 17 17 B/P (MAP) 141/80 130/75 Pulse Ox 99 99 O2 Delivery Nasal Cannula Nasal Cannula O2 Flow Rate 2.0 2.0 Intake & Output (last 24hrs) 03/13/24 03/13/24 03/14/24 15:00 23:00 07:00 Intake Total 440 ml 200 ml 410.0 ml Output Total 1300 ml 850 ml 400 ml Balance -860 ml -650 ml 10.0 ml LABS: Laboratory: Test 03/14/24 15:38 03/14/24 04:22 Range/Units Whole Blood Glucose 86 70-110 MG/DL White Blood Count 7.3 4.8-10.8 K/uL Red Blood Count 3.36 L 4.00-5.50 MIL/uL Hemoglobin 10.4 L 12.0-16.0 g/dL Hematocrit 32.3 L 36-48 % Mean Corpuscular Volume 96.1 79-99 fL Mean Corpuscular Hemoglobin 31.0 27.0-33.0 pg Mean Corpuscular Hemoglobin Concent 32.2 32.0-36.0 g/dL Red Cell Distribution Width 13.6 11.0-15.5 % Platelet Count 152 130-400 K/uL Mean Platelet Volume 9.5 7.5-10.5 fL Immature Granulocyte % (Auto) 2.3 H 0-1 % Neutrophils (%) (Auto) 70.5 40.0-77.0 % Lymphocytes (%) (Auto) 21.7 21.0-51.0 % Monocytes (%) (Auto) 5.1 3.0-13.0 % Eosinophils (%) (Auto) 0.1 0.0-8.0 % Basophils (%) (Auto) 0.3 0.0-5.0 % Neutrophils # (Auto) 5.1 1.8-7.7 K/uL Lymphocytes # (Auto) 1.6 1.0-4.8 K/uL Monocytes # (Auto) 0.4 0.1-1.0 K/uL Eosinophils # (Auto) 0.01 0.00-0.70 K/uL Basophils # (Auto) 0.02 0.00-0.20 K/uL Absolute Immature Granulocyte (auto 0.17 0-1 K/uL Nucleated Red Blood Cells 0.4 H 0.0-0.19 % Sodium Level 143 136-145 mmol/L Potassium Level 4.6 3.5-5.1 mmol/L Chloride Level 106 101-111 mmol/L Carbon Dioxide Level 31 21-32 mmol/L Blood Urea Nitrogen 52 H 7-18 mg/dL Creatinine 2.0 H 0.5-1.0 mg/dL Glomerular Filtration Rate Calc 23 >90 mL/min Random Glucose 117 H 70-105 mg/dL Total Calcium 8.4 L 8.5-10.1 mg/dL Magnesium Level 1.60 L 1.80-2.40 mg/dL ASSESSMENT: Hypoxic respiratory failure, requiring oxygen support. Aspiration Pneumonia. Urinary tract infection. Acute on chronic renal failure. Diabetes mellitus. Hypertension. Dementia. Debility. PLAN: Continue doxycycline IV. Continue cefepime IV. Continue IV steroids. Continue DuoNebs. Continue oxygen support. Nephrology consulted and following. Avoid nephrotoxic medications. Glucometer checks a.c./hs and cover with insulin per sliding scale protocol. Continue Physical therapy. This case was reviewed and discussed with my supervising physician and the above assessment and plan was formulated and agreed upon. ATTESTATION BY PHYSICIAN I have seen and examined the patient. I reviewed the documentation, medical decision making, and treatment plan as noted by the mid-level provider above. I agree with the findings and plan of care. BRAD MCGRAW MD, [facility] Mar 14, 2024 17:38
[2024-03-14] MEDS: DOXYCYCLINE HYCLATE 100 MG TABLET PO SCH (19:54)
[2024-03-14] MEDS: MAGNESIUM 2GM PREMIX 50ML 50 ML IV PRN (19:55)
--- NOTE | 2024-03-14 19:55 | NUR ---
MEDS SHIFT ASSESSMENT DONE, PLEASE REFER TO CHART. DUE MEDS ADMINISTERED, TOLERATED WELL. KEPT RESTED AND COMFORTABLE IN BED. CALL LIGHT WITHIN REACH. KEPT BED ALARM ACTIVATED AND SIDE RAILS RAISED. DOOR OPEN TO WATCH PT CLOSELY.
[2024-03-15] VITALS (9 sets, daily range): BP systolic 105–161; BP diastolic 56–83; PULSE 61–125; RESP 18–21; TEMP 97.8–98.4; O2SAT 96–100
[2024-03-15 05:24] LABS: BASOPHILS # (AUTO) 0.03 K/uL (0.00-0.20); BASOPHILS % (AUTO) 0.3 % (0.0-5.0); EOSINOPHILS # (AUTO) 0.02 K/uL (0.00-0.70); EOSINOPHILS % (AUTO) 0.2 % (0.0-8.0); HEMATOCRIT 31.6 % (36-48); LYMPHOCYTES # (AUTO) 2.2 K/uL (1.0-4.8); MEAN CORPUSCULAR HEMOGLOBIN 31.1 pg (27.0-33.0); MEAN CORPUSCULAR HGB CONC 32.3 g/dL (32.0-36.0); MEAN CORPUSCULAR VOLUME 96.3 fL (79-99); MONOCYTES # (AUTO) 0.6 K/uL (0.1-1.0); NEUTROPHILS # (AUTO) 5.8 K/uL (1.8-7.7); NEUTROPHILS % (AUTO) 65.2 % (40.0-77.0); NUCLEATED RED BLOOD CELLS 0.2 % (0.0-0.19); PLATELET COUNT (AUTO) 157 K/uL (130-400); RED BLOOD CELL COUNT(AUTO) 3.28 MIL/uL (4.00-5.50); RED CELL DISTRIBUTION WIDTH 13.6 % (11.0-15.5); WHITE BLOOD COUNT (AUTO) 8.8 K/uL (4.8-10.8)
--- NOTE | 2024-03-15 05:50 | NUR ---
MEDS PT SLEPT AT INTERVALS DURING THE SHIFT. NO DISTRESS NOTED. NO CONCERNS VERBALIZED. DUE MEDS ADMINISTERED, TOLERATED WELL. KEPT RESTED AND COMFORTABLE. FOR MORE CARE.
[2024-03-15 05:54] LABS: CREATININE 2.1 mg/dL (0.5-1.0); MAGNESIUM 2.2 mg/dL (1.80-2.40); POTASSIUM 4.1 mmol/L (3.5-5.1)
--- NOTE | 2024-03-15 13:32 | PN ---
NEPHROLOGY PROGRESS NOTE Date/Time Patient Seen: Mar 15, 2024 Reason for Consultation: 13:31 SUBJECTIVE: This is an 88-year-old female with a past medical history of dementia, diabetes mellitus type 2, hyperlipidemia, hypertension, hypothyroidism, chronic kidney disease. She presented to the emergency room from [facility] with complaints of wheezing, cough, congestion x2 days. Chest x-ray showed mild bilateral pulmonary infiltrates. She has been started on antibiotics and Solu-Medrol She was noted to have elevated BUN/creatinine. We are consulted for renal failure Renal function and electrolytes are stable. Renal ultrasound noted. Continues to work with physical therapy. She was seen in the medical floor, in no acute distress Prognosis remains guarded REVIEW OF SYSTEMS: GENERAL: Positive for wheezing, congestion, cough NEUROLOGIC: Negative for any blurry vision, blind spots, double vision, facial asymmetry, dysphagia, dysarthria, hemiparesis, hemisensory deficits, vertigo, ataxia. HEENT: Negative for any head trauma, neck trauma, neck stiffness, photophobia, phonophobia, sinusitis, rhinitis. CARDIAC: Negative for any chest pain, dyspnea on exertion, paroxysmal nocturnal dyspnea, peripheral edema. PULMONARY: Negative for any shortness of breath, wheezing, COPD, or TB exposure. GASTROINTESTINAL: Negative for any abdominal pain, nausea, vomiting, bright red blood per rectum, melena. GENITOURINARY: Negative for any dysuria, hematuria, incontinence. INTEGUMENTARY: Negative for any rashes, cuts, insect bites. RHEUMATOLOGIC: Negative for any joint pains, photosensitive rashes, history of vasculitis or kidney problems. HEMATOLOGIC: Negative for any abnormal bruising, frequent infections or bleeding. PHYSICAL EXAM: GENERAL: Alert and oriented x 3. No acute distress. Well-nourished. EYES: EOMI. Anicteric. HENT: Moist mucous membranes. No scleral icterus. No cervical lymphadenopathy. LUNGS: Clear to auscultation bilaterally. No accessory muscle use. CARDIOVASCULAR: Regular rate and rhythm. No murmur. No JVD. ABDOMEN: Soft, non-tender and non-distended. No palpable masses. EXTREMITIES: No edema. Non-tender. SKIN: No rashes or lesions. Warm. NEUROLOGIC: No focal neurological deficits. CN II-XII grossly intact, but not individually tested. PSYCHIATRIC: Cooperative. Appropriate mood and affect. LABORATORY: [ ] Hematology Labs: Test 03/15/24 04:50 Range/Units White Blood Count 8.8 4.8-10.8 K/uL Red Blood Count 3.28 L 4.00-5.50 MIL/uL Hemoglobin 10.2 L 12.0-16.0 g/dL Hematocrit 31.6 L 36-48 % Mean Corpuscular Volume 96.3 79-99 fL Mean Corpuscular Hemoglobin 31.1 27.0-33.0 pg Mean Corpuscular Hemoglobin Concent 32.3 32.0-36.0 g/dL Red Cell Distribution Width 13.6 11.0-15.5 % Platelet Count 157 130-400 K/uL Mean Platelet Volume 9.8 7.5-10.5 fL Immature Granulocyte % (Auto) 2.3 H 0-1 % Neutrophils (%) (Auto) 65.2 40.0-77.0 % Lymphocytes (%) (Auto) 25.0 21.0-51.0 % Monocytes (%) (Auto) 7.0 3.0-13.0 % Eosinophils (%) (Auto) 0.2 0.0-8.0 % Basophils (%) (Auto) 0.3 0.0-5.0 % Neutrophils # (Auto) 5.8 1.8-7.7 K/uL Lymphocytes # (Auto) 2.2 1.0-4.8 K/uL Monocytes # (Auto) 0.6 0.1-1.0 K/uL Eosinophils # (Auto) 0.02 0.00-0.70 K/uL Basophils # (Auto) 0.03 0.00-0.20 K/uL Absolute Immature Granulocyte (auto 0.20 0-1 K/uL Nucleated Red Blood Cells 0.2 H 0.0-0.19 % Chemistry Labs: Test 03/15/24 11:23 03/15/24 04:50 Range/Units Whole Blood Glucose 96 70-110 MG/DL Sodium Level 143 136-145 mmol/L Potassium Level 4.1 3.5-5.1 mmol/L Chloride Level 105 101-111 mmol/L Carbon Dioxide Level 29 21-32 mmol/L Blood Urea Nitrogen 62 H 7-18 mg/dL Creatinine 2.1 H 0.5-1.0 mg/dL Glomerular Filtration Rate Calc 22 >90 mL/min Random Glucose 90 70-105 mg/dL Total Calcium 8.5 8.5-10.1 mg/dL Magnesium Level 2.20 1.80-2.40 mg/dL DIAGNOSTICS / RADIOLOGY: REASON: Decreased renal function ORDERING PHYSICIAN: RERE REDMOND PROCEDURE: RENAL - US RENAL SONOGRAM US RENAL SONOGRAM HISTORY: Decreased renal function COMPARISON: None TECHNIQUE: Renal and bladder ultrasound study was performed. FINDINGS: The right kidney measures 10 x 4.6 x 3 cm. The left kidney measures 9.6 x 5 x 4.4 cm. No evidence of hydronephrosis is seen of either kidney. Both kidneys are seen. Bladder is moderately distended. Bladder is partially distended. There is left upper pole renal cyst measuring 16 x 14 mm. IMPRESSION: 1. No hydronephrosis is seen. Left upper pole renal cyst measuring 16 x 14 mm. DICTATED BY: GENNY TELLO MD DATE: 03/10/24 1723 REASON: Dyspnea/SOB ORDERING PHYSICIAN: DARREL IZAGUIRRE DO PROCEDURE: CXR1VW - CHEST 1VW CHEST 1VW HISTORY: Dyspnea COMPARISON: 07/18/2021 FINDINGS: A frontal projection of the chest was obtained. Mild bilateral pulmonary infiltrates are seen may be related to mild pulmonary vascular congestion with possible superimposed pneumonitis. The heart is borderline enlarged. Degenerative changes are seen. No evidence of aortic calcification is seen. IMPRESSION: 1. Mild bilateral pulmonary infiltrates are seen may be related to mild pulmonary vascular congestion with possible superimposed pneumonitis. DICTATED BY: GENNY TELLO MD DATE: 03/09/24 8176 ASSESSMENT: Patient has mental status changes with metabolic encephalopathy acute on chronic renal failure with underlying diabetic nephropathy with multiple other comorbidities Acute on chronic renal failure Anemia Dementia Bronchitis with wheezing Diabetes mellitus type 2 Hypertension Hypothyroidism Hyperlipidemia PLAN: Labs, diagnostic, radiologic exams reviewed and interpreted by myself and sup ervising physician. We have reviewed external records in detail Continue with physical therapy as tolerated. Require close monitoring of renal function and electrolytes Order CBC, CMP,and electrolytes in am Continue with renally dosed antibiotics as per ID Renal diabetic diet BiPAP as necessary, for respiratory distress Monitor blood pressure adjust medication doses as needed Avoid hypotensive episodes May use Dilaudid 0.5 mg IV every 6 hours as needed for severe pain Monitor blood sugars Strict intake, output, and daily weight should be monitored Please renally adjust medications Avoid nephrotoxic and nonsteroidal drugs Avoid contrast if possible Will continue to monitor renal function, anemia, electrolytes Treatment plan discussed with patient Questions were answered We have discussed with the other team physicians in detail about the care plan We will continue to monitor the patient closely ATTESTATION BY PHYSICIAN I have seen and examined the patient. I reviewed the documentation, medical decision making, and treatment plan as noted by the mid-level provider above. I agree with the findings and plan of care. FAITH ROMERO MD, [facility] [place] Mar 15, 2024 13:32
--- NOTE | 2024-03-15 14:06 | NUR ---
Discharge Planning: Pt. is a long-term resident from [facility] and will be transferred back today.
--- NOTE | 2024-03-15 17:36 | DS ---
Discharge Summary Hospital Course This is a 58-year-old female patient with past medical history of diabetes mellitus, obesity and dementia, who was sent over to the hospital to the hospital from [facility] with chief complaint of cough, shortness of breath and wheezing. The patient's symptoms started a few days prior to presentation. Cough is dry. X-ray done in the Emergency Room shows pulmonary vascular congestion and bilateral infiltrates. No sore throat. No rhinorrhea. No bleeding tendency. No rashes or itchiness. The patient is awake, but not a good historian due to outlying dementia. Patient was treated with cefepime and doxycycline. Patient will be discharged back to [facility] today. FINAL DISCHARGE DIAGNOSIS: Hypoxic respiratory failure, requiring oxygen support. Aspiration Pneumonia. Urinary tract infection. Acute on chronic renal failure. Diabetes mellitus. Hypertension. Dementia. Debility. PLAN: Discharge patient back to [facility] today. Medication reconciliation is complete. Continue with cefepime and doxycycline for 10 more days at [facility]. This case was reviewed and discussed with my supervising physician and the above assessment and plan was formulated and agreed upon. ATTESTATION BY PHYSICIAN I have seen and examined the patient. I reviewed the documentation, medical decision making, and treatment plan as noted by the mid-level provider above. I agree with the findings and plan of care. BRAD MCGRAW MD, [facility] Mar 15, 2024 17:36
== END 2024-03-15 17:50 | DRG 177 ==
LOC: EDH 19:20 → EDHIP 20:34 → 3BH 21:28
PROVIDERS: ADMIT Internal Medicine Infectious Disease; ATTEND Internal Medicine Infectious Disease
DX: J69.0 Pneumonitis due to inhalation of food and vomit (principal); G93.41 Metabolic encephalopathy; J96.01 Acute respiratory failure with hypoxia; N17.9 Acute kidney failure, unspecified; N39.0 Urinary tract infection, site not specified; J40 Bronchitis, not specified as acute or chronic; F03.90 Unspecified dementia, unspecified severity, without behavioral disturbance, psychotic disturbance, mood disturbance, and anxiety; D64.9 Anemia, unspecified; N18.9 Chronic kidney disease, unspecified; E05.90 Thyrotoxicosis, unspecified without thyrotoxic crisis or storm; E11.22 Type 2 diabetes mellitus with diabetic chronic kidney disease; I12.9 Hypertensive chronic kidney disease with stage 1 through stage 4 chronic kidney disease, or unspecified chronic kidney disease; E03.9 Hypothyroidism, unspecified; E66.01 Morbid (severe) obesity due to excess calories; E78.00 Pure hypercholesterolemia, unspecified; Z66 Do not resuscitate; Z83.3 Family history of diabetes mellitus; Z68.35 Body mass index [BMI] 35.0-35.9, adult
CPT/HCPCS: 36415; 36600; 71045; 76770; 80048; 80051; 80053; 81001; 82570; 82728; 82803; 82948; 83540; 83550; 83735; 83880; 83935; 84100; 84443; 84550; 85025; 85027; 87086; 93005; 94640; 96361; 96374; 99291; G0378; J0692; J1650; J1756; J1815; J2919; J3475; J3490; J7050

== ENCOUNTER 2024-03-22 16:23 | Inpatient (IN) | payer MEDICARE ==
[~2024-03-22] VITALS: Ht 154.9 cm; Wt 88.6 kg
[~2024-03-22 16:23] MED LIST: ACET-3859 PO; ASCO500T10 PO; ATOR10TA69 PO; BENZ-39 PO; CHOL100046 PO; CITA20TA17 PO; DICL100G60 TP; DIVA-78 PO; DOCU100C33 PO; FERR-82 PO; FLUT16H NASAL; FOLI0.8T22 PO; FOLI1 PO; GUAI100S13 PO; HYDR25TA67 PO; IPRA0.2S54 NEB; LACT10SO9 PO; LEVO50TA11 PO; LOSA50TA64 PO; MELA5CAP PO; MIRT7.5T11 PO; ONDA-104 PO; TORS20TA4 PO; VENL75CA97 PO
--- NOTE | 2024-03-22 16:41 | EKG ---
[facility] Test Date: 2024-03-22 Test Time: 16:38:29 Pat Name: MONIQUE SHELTON Department: ED Room: 314 Gender: F Chummer: [id number] : [id number] Requested By: MICHELLE KHAN Order Number: [id number] Reading MD: Ramos Buenrostro Measurements Intervals Nichols Rate: 81 P: -22 SC: 153 QRS: 63 QRSD: 100 T: 67 QT: 395 QTc: 458 Interpretive Statements Sinus rhythm Low voltage, extremity leads Compared to ECG 03/09/2024 19:51:15 Low QRS voltage now present Electronically Signed On 03-25-2024 17:32:01 [employer]ORDS MANAGEMENT ASSOCIATE by Ramos Buenrostro Please click the below link to view image of tracing.
[2024-03-22 16:45] LABS: BASOPHILS # (AUTO) 0.03 K/uL (0.00-0.20); BASOPHILS % (AUTO) 0.4 % (0.0-5.0); EOSINOPHILS # (AUTO) 0.83 K/uL (0.00-0.70); EOSINOPHILS % (AUTO) 11.8 % (0.0-8.0); HEMATOCRIT 32.4 % (36-48); IMMATURE GRANULOCYTE ABSOLUTE 0.14 K/uL (0-1); LYMPHOCYTES # (AUTO) 2.4 K/uL (1.0-4.8); LYMPHOCYTES % (AUTO) 33.6 % (21.0-51.0); MEAN CORPUSCULAR HEMOGLOBIN 30.6 pg (27.0-33.0); MEAN CORPUSCULAR HGB CONC 30.9 g/dL (32.0-36.0); MEAN CORPUSCULAR VOLUME 99.1 fL (79-99); MONOCYTES # (AUTO) 0.6 K/uL (0.1-1.0); MONOCYTES % (AUTO) 8.9 % (3.0-13.0); NEUTROPHILS # (AUTO) 3.1 K/uL (1.8-7.7); NEUTROPHILS % (AUTO) 43.3 % (40.0-77.0); PLATELET COUNT (AUTO) 158 K/uL (130-400); RED BLOOD CELL COUNT(AUTO) 3.27 MIL/uL (4.00-5.50); RED CELL DISTRIBUTION WIDTH 14.6 % (11.0-15.5); WHITE BLOOD COUNT (AUTO) 7.1 K/uL (4.8-10.8)
[2024-03-22 17:04] LABS: CREATININE 4.4 mg/dL (0.5-1.0); POTASSIUM 4.2 mmol/L (3.5-5.1)
--- NOTE | 2024-03-22 17:15 | ERN ---
General Chief Complaint: Hypotension Stated Complaint: HYPOTENSION Time Seen by MD: 16:31 Source: patient, EMS History of Present Illness Initial Comments Patient is a an 88-year-old female coming in brought in by EMS secondary to hypotension. Per EMS patient blood pressure was low but after adjusting the blood pressure cuff blood pressure was normal. Patient is presenting with a cough and congestion but very limited history. Allergies: Coded Allergies: No Known Drug Allergies (Unverified Allergy, Unknown, 07/18/21) Home Meds Reported Medications Diclofenac Sodium (Diclofenac Sodium) 1 % Gel..gram., 1 APPL TP Q8H PRN for PAIN LEVEL 1 TO 5 for 21 Days, #100 GM 0 Refills 03/10/24 Torsemide (Torsemide) 20 Mg Tablet, 1 TAB PO BID 03/10/24 Benzonatate (Tessalon Perles) 100 Mg Cap, 100 MG PO Q8H PRN for COUGH, CAP 03/10/24 Losartan Potassium (Losartan Potassium) 50 Mg Tablet, 1 TAB PO DAILY HOLD IF SBP LESS THAN 90 OR DBP LESS THAN 50 OR PULSE LESS THAN 50. 03/10/24 Ondansetron HCl (Ondansetron HCl) 4 Mg Tablet, 4 MG PO Q8H PRN for NAUSEA/VOMITING, TAB 03/10/24 Lactulose (Lactulose) 20 Gram/30 Ml Solution, 20 GM PO DAILY PRN for CONSTIPATION, ML 03/10/24 Ipratropium [place] (Ipratropium [place]) 0.2 Mg/Ml (0.02 %) Solution, 1 VIAL NEB [id number] PRN for SHORTNESS OF BREATH for 30 Days, #300 ML 0 Refills 03/10/24 Ascorbic Acid (Ascorbic Acid) 500 Mg Tablet, 1 TAB PO DAILY for 30 Days, #30 TAB 0 Refills 03/10/24 Ferrous Sulfate (Iron) 325 Mg (65 Mg Iron) Tablet, 1 TAB PO BID for 30 Days, #60 TAB 0 Refills 03/10/24 Venlafaxine HCl (Venlafaxine HCl ER) 75 Mg Cap.er.24h, 1 CAP PO DAILY for 30 Days, #30 CAP 0 Refills 03/10/24 Folic Acid/Vitamin B Comp W-C (Kenna-Can Tablet) 0.8 Mg Tablet, 1 TAB PO DAILY for 30 Days, #30 TAB 0 Refills 03/10/24 Guaifenesin (Guaifenesin) 100 Mg/5 Ml Liq, 10 ML PO Q4HPRN PRN for COUGH for 3 Days, #120 ML 0 Refills 03/10/24 Melatonin (Melatonin) 5 Mg Capsule, 5 MG PO HS, CAP 03/10/24 Atorvastatin Calcium (Atorvastatin Calcium) 10 Mg Tablet, 1 MG PO HS 03/10/24 Docusate Sodium (Docusate Sodium) 100 Mg Capsule, 1 CAP PO BID for constipation for 7 Days, #14 CAP 0 Refills 03/10/24 Hydralazine HCl (Hydralazine HCl) 25 Mg Tablet, 1 TAB PO Q6HPRN PRN for IF SBP GREATER THAN 160 for 30 Days, #90 TAB 0 Refills 03/10/24 Mirtazapine (Mirtazapine) 7.5 Mg Tablet, 1 TAB PO HS 03/10/24 Acetaminophen (Acetaminophen) 325 Mg Tablet, 2 TAB PO Q6HPRN PRN for pain or fever for 24 Days, #100 TAB 0 Refills 03/10/24 Divalproex Sodium (Divalproex Sodium) 500 Mg Tablet.dr, 1 TAB PO BID 03/10/24 Levothyroxine Sodium (Levothyroxine Sodium) 50 Mcg Tablet, 1 TAB PO ACBKFST 03/10/24 Folic Acid (Folvite) 1 Mg Tab, 1 MG PO DAILY 03/10/24 Cholecalciferol (Vitamin D3) (Vitamin D3) 25 Mcg (1000 Unit) Capsule, 1 CAP PO DAILY for 30 Days, #30 CAP 0 Refills 03/10/24 Fluticasone Propionate (Flonase Nasal [place]) 50 Mcg/Actuation [place], 2 SPRAY NASAL DAILY 03/10/24 Citalopram Hydrobromide (Celexa) 20 Mg Tablet, 1 TAB PO DAILY for 30 Days, #30 TAB 0 Refills 03/10/24 Discontinued Reported Medications Loperamide HCl (Imodium A-D) 2 Mg Capsule, 1 CAP PO Q8H PRN for DIARRHEA for 5 Days, #15 CAP 0 Refills 03/10/24 Past Medical History Past Medical History: Dementia, Depression, Diabetes-Type II, High Cholesterol, Hypertension, Hypothyroid, Other Medical History Other: CKD Past Surgical History: Unknown Family History Family History: Negative Social History Social History: Negative ROS Dictation CONSTITUTIONAL: No chills, no fever, no weakness, no diaphoresis, no malaise. HEAD/FACE: No signs of trauma. EENT: No eye pain, no blurred vision, no tearing, no double vision, no ear pain, no ear discharge, no nose pain, no nasal congestion, no throat pain, no throat swelling, no mouth pain. RESPIRATORY: No cough, no orthopnea, no SOB, no stridor, no wheezing. CARDIOVASCULAR: No chest pain, no edema, no palpitations, no syncope. GASTROINTESTINAL/ABDOMINAL: No abdominal pain, no constipation, no diarrhea, no nausea, no vomiting. GENITOURINARY: No abnormal discharge, no dysuria, no frequent urination, no hematuria. No complaints of pain in the genitals. MUSCULOSKELETAL: No back pain, no gout, no joint pain, no joint swelling, no muscle pain, no muscle stiffness, no neck pain. INTEGUMENTARY: No change in color, no change in hair/nails, no dryness, no lesion, no lumps, no rash. NEUROLOGICAL/PSYCH: No anxiety, not depressed, no emotional problem, no headache, no numbness, no pre-existing deficit, no history of seizures, no tremors, no weakness. HEMATOLOGIC/LYMPHATIC: Not anemic, no history of blood clots, no apparent bleeding, no bruising, glands not swollen. All Systems Negative, Except as Noted. Physical Exam Physical Exam Dictation VITAL SIGNS: Reviewed. GENERAL APPEARANCE: Alert, oriented x3, no acute distress, obese. HEAD AND FACE: Non-traumatic. EYES: PERRL, pink conjunctivas, eyelid no trauma, anterior chamber clear. EARS: Pinnas intact and no signs of trauma or erythema. Ear canals clear and no discharge. TMs no erythema. NOSE: No discharge, no bleeding. OROPHARYNX: Mouth normal, teeth no caries, tongue pink. Pharynx clear, no erythema. Tonsils no exudates, no abscesses noted. Mucous membrane moist. NECK: Supple, non-tender, no thyromegaly, no masses, no JVD, no bruits. BREAST: Deferred. CHEST: No tenderness, no crepitus, no paradoxical movement, no retractions. LUNGS: Clear, well-ventilated, symmetric, no rales, no wheezing, no rhonchi, no stridor, good breath sounds bilaterally. HEART: Regular rate, regular rhythm, no murmur, no gallops. VASCULAR: No peripheral edema. ABDOMEN: Soft, positive bowel sounds, nondistended, no guarding, nontender, no rebound, no masses no hepatomegaly, no splenomegaly, no Griffin's sign, no hernias. RECTAL: Deferred. GENITAL: Deferred. NEUROLOGICAL: Normal speech, gross motor function intact, gross sensory function intact. MUSCULOSKELETAL: Neck nontender, full range of motion, back nontender, full range of motion. EXTREMITIES: Nontender, full range of motion. SKIN: Color pink, dry, no turgor, no rash, no lacerations, no abrasions, no contusions. LYMPHATICS: Deferred. Results Laboratory and Microbiology Lab and Micro Result Laboratory Tests Test 03/22/24 16:30 White Blood Count 7.1 K/uL (4.8-10.8) Red Blood Count 3.27 MIL/uL (4.00-5.50) L Hemoglobin 10.0 g/dL (12.0-16.0) L Hematocrit 32.4 % (36-48) L Mean Corpuscular Volume 99.1 fL (79-99) H Mean Corpuscular Hemoglobin 30.6 pg (27.0-33.0) Mean Corpuscular Hemoglobin Concent 30.9 g/dL (32.0-36.0) L Red Cell Distribution Width 14.6 % (11.0-15.5) Platelet Count 158 K/uL (130-400) Mean Platelet Volume 10.0 fL (7.5-10.5) Immature Granulocyte % (Auto) 2.0 % (0-1) H Neutrophils (%) (Auto) 43.3 % (40.0-77.0) Lymphocytes (%) (Auto) 33.6 % (21.0-51.0) Monocytes (%) (Auto) 8.9 % (3.0-13.0) Eosinophils (%) (Auto) 11.8 % (0.0-8.0) H Basophils (%) (Auto) 0.4 % (0.0-5.0) Neutrophils # (Auto) 3.1 K/uL (1.8-7.7) Lymphocytes # (Auto) 2.4 K/uL (1.0-4.8) Monocytes # (Auto) 0.6 K/uL (0.1-1.0) Eosinophils # (Auto) 0.83 K/uL (0.00-0.70) H Basophils # (Auto) 0.03 K/uL (0.00-0.20) Absolute Immature Granulocyte (auto 0.14 K/uL (0-1) Nucleated Red Blood Cells 0.0 % (0.0-0.19) Red Blood Cell Morphology See comments Sodium Level 140 mmol/L (136-145) Potassium Level 4.2 mmol/L (3.5-5.1) Chloride Level 101 mmol/L (101-111) Carbon Dioxide Level 33 mmol/L (21-32) H Blood Urea Nitrogen 102 mg/dL (7-18) *H Creatinine 4.4 mg/dL (0.5-1.0) H Glomerular Filtration Rate Calc 9 mL/min (>90) Random Glucose 110 mg/dL (70-105) H Lactic Acid Level 1.5 mmol/L (0.8-2.5) Total Calcium 8.7 mg/dL (8.5-10.1) Troponin I High Sensitivity 16 ng/L (4-50) B-Type Natriuretic Peptide 33 pg/mL (0-100) Labs Reviewed?: Yes EKG/XRAY/US/CT/MRI EKG Comment 03/22/2024 time 4:38 p.m. Ventricular rate 81 Sinus rhythm [place] [address] wave elevation or depression MDM MDM: Differential diagnosis: Rationale: Tests considered and ordered secondary to shared decision making include: Previous outside records reviewed: Old ER visits. Risk of complication and/or morbidity or mortality of patient management: None Medications-Per medication reconciliation Need for hospitalization: Patient does not meet criteria for hospitalization. Need for emergency major/minor surgery: No There are no social concerns with this patient. Prescription drug management Prescriptions will include symptomatic care Patient's prior external medical records from other ER visits were reviewed by me as indicated. Prior testing and results from previous visits were reviewed. Prior tests were taken into account with medical decision making and resource utilization, independent historian/historians were used to obtain complete medical history. I independently interpreted the test that were performed, results were reviewed by me and considered findings on radiology if ordered. Medical management and examination interpretation discussions were had by me with other qualified healthcare professionals as indicated for the patient's care. ED Course Orders Procedure Category Date Status Time Cbc With Differential LAB 03/22/24 Complete 16:29 Basic Metabolic Panel LAB 03/22/24 Complete 16:29 12 Lead Ekg Tracing- EKG 03/22/24 Complete Technical 16:29 Troponin I High LAB 03/22/24 Complete Sensitivity 16:29 Lactic Acid LAB 03/22/24 Complete 16:29 Chest 1vw RAD 03/22/24 Resulted 16:29 B-Type Natriuretic LAB 03/22/24 Complete Peptide 16:56 Covid Rna Naat LAB 03/22/24 Logged 16:56 Influenza Type A & B, LAB 03/22/24 Logged Rapid 16:56 Edm Admit Bridge Order ADM 03/22/24 Transmitted 20:38 Ns 1000ml @___Ml/Hr X1 PHA 03/22/24 Transmitted 21:00 Vital Signs Date Time Temp Pulse Resp B/P (MAP) Pulse Ox O2 Delivery O2 Flow Rate FiO2 03/22/24 16:25 98.2 79 15 100/63 100 Nasal Cannula 3.0 7:00 p.m. patient was signed out to me by a.mJeff physician. Apparently she was transferred from formerly [facility] for evaluation of hypotension and the blood pressure there was reported as 70 systolic. When she came here her blood pressure was 100/63. Labs were obtained. 8:41 p.m. I reviewed all the labs BUN and creatinine are 102 and 4.4 bicarb is 33 CBC showed a white count of 7.1 hemoglobin 10. Peripheral smear showed 11% eosinophilia chest x-ray is negative urinalysis and viral serologies are pending at this time. Patient has chronic medical problems are dementia diabetes mellitus hypothyroidism and hypercholesterolemia Patient accepted by for admission and further management. DX & DISP Disposition: Inpatient Decision to Admit Time: 20:40 Departure Impression: Primary Impression: Acute renal failure Additional Impressions: Interstitial nephritis, Peripheral eosinophilia, Dementia, General weakness Condition: Stable Additional Instructions: Patient was informed of all the diagnostic labs and procedures conducted in the emergency room today and demonstrated understanding of the results. I personally reviewed and interpreted all the diagnostic exams performed in the ER today. The patient will be admitted to the hospital for further treatment and evaluation. Disposition-admit to facility Condition-stable/guarded Course-uncertain at this time Pain status-decreased Assessment-exam unchanged Admission Certification- I certify that the patients status is appropriate and is based on my best clinical judgment and the patient's condition as documented in the medical records Referrals: HERNANDEZ BOURGEOIS MD (PCP) MICHELLE KHAN MD Mar 22, 2024 17:15 JOSE HUTCHINSON MD Mar 22, 2024 20:43
--- NOTE | 2024-03-22 17:45 | HMCIMG ---
PORTABLE CHEST RADIOGRAPH INDICATION: WEAKNESS COMPARISON: 03/09/2024 FINDINGS: Heart size is normal. The pulmonary vascularity and juliet appear normal. No abnormal pulmonary parenchymal opacity or consolidation identified. No significant pleural effusion noted. No pneumothorax detected. IMPRESSION: No radiographic evidence for any acute cardiopulmonary process.
[2024-03-22] MEDS ORDERED: ondanSETRON 4MG TABLET PO PRN (21:00)
[2024-03-22] MEDS ORDERED: acetaMINOPHEN 325 MG TAB PO PRN (21:00)
[2024-03-22] MEDS: 0.9%NACL 1000ML 1,000 ML IV ONE (21:13)
[2024-03-22] MEDS: Solu-medROL 40MG VIAL IVP ONE (21:13)
[2024-03-22] MEDS: IpraTROPium/alBUTERol SULFATE 3 ML SOLUTION IH ONE (21:14)
[2024-03-22] MEDS: HEParin 5,000 UNIT VIAL SQ SCH (21:14)
[2024-03-22 21:21] VITALS: PULSE 84; RESP 20
[2024-03-22] MEDS: DEXTROSE 5 % AND 0.9 % NACL 1,000 ML IV SCH (21:48)
[2024-03-22 22:23] LABS: SARS-CoV-2, RNA, NAAT NEGATIVE SARS CoV-2 (NEGATIVE)
[2024-03-22 22:27] LABS: INFLUENZA TYPE A Negative For Type A (NEGATIVE); INFLUENZA TYPE B Negative For Type B (NEGATIVE)
--- NOTE | 2024-03-22 22:34 | NUR ---
pt rec from ems at 1999 reported hypotention however does not reflect that at this time bp stable however severe respiratory congestion with audible wheeses and congestion non productive cough pt oriented by name and only frequent guidance and orientation needed
--- NOTE | 2024-03-23 04:15 | NUR ---
ASSUMED PT CARE AT THIS TIME
[2024-03-23 07:07] LABS: BASOPHILS # (AUTO) 0.02 K/uL (0.00-0.20); BASOPHILS % (AUTO) 0.3 % (0.0-5.0); EOSINOPHILS # (AUTO) 0.02 K/uL (0.00-0.70); EOSINOPHILS % (AUTO) 0.3 % (0.0-8.0); HEMATOCRIT 31.9 % (36-48); IMMATURE GRANULOCYTE ABSOLUTE 0.19 K/uL (0-1); LYMPHOCYTES # (AUTO) 1.2 K/uL (1.0-4.8); LYMPHOCYTES % (AUTO) 20.6 % (21.0-51.0); MEAN CORPUSCULAR HEMOGLOBIN 31.5 pg (27.0-33.0); MEAN CORPUSCULAR VOLUME 98.5 fL (79-99); MONOCYTES # (AUTO) 0.1 K/uL (0.1-1.0); NEUTROPHILS # (AUTO) 4.3 K/uL (1.8-7.7); NEUTROPHILS % (AUTO) 73.6 % (40.0-77.0); PLATELET COUNT (AUTO) 154 K/uL (130-400); RED BLOOD CELL COUNT(AUTO) 3.24 MIL/uL (4.00-5.50); RED CELL DISTRIBUTION WIDTH 14.1 % (11.0-15.5); WHITE BLOOD COUNT (AUTO) 5.9 K/uL (4.8-10.8)
[2024-03-23 07:16] LABS: HEMOGLOBIN A1C 6.3 % (4.0-6.0)
[2024-03-23 07:23] LABS: CREATININE 3.8 mg/dL (0.5-1.0); MAGNESIUM 2.5 mg/dL (1.80-2.40); POTASSIUM 4.7 mmol/L (3.5-5.1)
[2024-03-23] MEDS ORDERED: INSULIN LISpro 100 UNIT/ML 3ML SQ SCH (07:30)
--- NOTE | 2024-03-23 07:50 | NUR ---
PT's BLOOD GLUCOSE WAS 145. INSULIN LISPRO WAS NOT GIVEN PER PROTOCOL.PHARMACY CONTACTED TO REVIEW MEDICATION ORDER.
--- NOTE | 2024-03-23 11:18 | NUR ---
PT's BEDSHEETS AND DIAPER CHANGED.CLEAN GOWN PUT ON.DAUGHTER AT BEDSIDE.
--- NOTE | 2024-03-23 13:20 | NUR ---
DR ROMERO AT BEDSIDE.ORDERS TRANSCRIBED.
--- NOTE | 2024-03-23 14:15 | NUR ---
BLADDER SCAN SHOWS 169 ML.
--- NOTE | 2024-03-23 14:46 | CONS ---
NEPHROLOGY CONSULTATION NOTE Date/Time Patient Seen: Mar 23, 2024 1320 Reason for Consultation: Hypotension, renal failure, cough and congestion HISTORY OF PRESENT ILLNESS: This is an 88 year-old female with a past medical history of dementia, diabetes mellitus type 2, hyperlipidemia, hypertension, hypothyroidism, chronic kidney disease. She presented to the emergency room from [facility] with complaints of hypotension. Chest x-ray showed She was noted to have elevated BUN/creatinine. We are consulted for renal failure Renal function remains elevated Electrolytes are stable. She was seen in the emergency room. Family members at the bedside Prognosis remains guarded REVIEW OF SYSTEMS: GENERAL: Negative for any nausea, vomiting, fevers, chills, or weight loss. NEUROLOGIC: Negative for any blurry vision, blind spots, double vision, facial asymmetry, dysphagia, dysarthria, hemiparesis, hemisensory deficits, vertigo, ataxia. HEENT: Negative for any head trauma, neck trauma, neck stiffness, photophobia, phonophobia, sinusitis, rhinitis. CARDIAC: Negative for any chest pain, dyspnea on exertion, paroxysmal nocturnal dyspnea, peripheral edema. PULMONARY: Negative for any shortness of breath, wheezing, COPD, or TB exposure. GASTROINTESTINAL: Negative for any abdominal pain, nausea, vomiting, bright red blood per rectum, melena. GENITOURINARY: Negative for any dysuria, hematuria, incontinence. INTEGUMENTARY: Negative for any rashes, cuts, insect bites. RHEUMATOLOGIC: Negative for any joint pains, photosensitive rashes, history of vasculitis or kidney problems. HEMATOLOGIC: Negative for any abnormal bruising, frequent infections or bleeding. PAST MEDICAL HISTORY: Dementia, diabetes mellitus type 2, hyperlipidemia, hypothyroidism, chronic kidney disease, hypertension PAST SURGICAL HISTORY: None reported PAST SOCIAL HISTORY: Resident at [facility] Denies use of alcohol, tobacco or illicit drugs FAMILY HISTORY: Noncontributory PHYSICAL EXAM: GENERAL: Alert and oriented x 3. No acute distress. Well-nourished. EYES: EOMI. Anicteric. HENT: Moist mucous membranes. No scleral icterus. No cervical lymphadenopathy. LUNGS: Clear to auscultation bilaterally. No accessory muscle use. CARDIOVASCULAR: Regular rate and rhythm. No murmur. No JVD. ABDOMEN: Soft, non-tender and non-distended. No palpable masses. EXTREMITIES: No edema. Non-tender.?SKIN: No rashes or lesions. Warm. NEUROLOGIC: No focal neurological deficits. CN II-XII grossly intact, but not individually tested. PSYCHIATRIC: Cooperative. Appropriate mood and affect. MEDICATIONS: [ ] Current Medications Medications (Trade) Dose Ordered Sig/Avery Route PRN Reason Start Time Stop Time Status Last Admin Dose Admin Acetaminophen (TYLenol 325MG TAB) 650 mg Q6H PRN PO MILD PAIN (1-3) 03/22/24 21:00 04/21/24 20:59 Dextrose/Sodium Chloride 1,000 ml @ 75 mls/hr [id number] IV 03/22/24 21:00 04/21/24 20:59 03/23/24 12:58 75 MLS/HR Heparin Sodium (Porcine) (HEParin 5,000 UNIT VIAL) 5,000 unit Q12H SQ 03/22/24 21:00 04/21/24 20:59 03/23/24 09:43 5,000 UNIT Insulin Human Lispro (HumaLOG LISpro 100 UNIT/ML 3ML) INSULIN SLIDING SCAL... BIDAC SQ 03/23/24 16:30 04/22/24 16:29 Insulin Human Lispro (HumaLOG LISpro 100 UNIT/ML 3ML) LISPRO SLIDING SCALE # 1 BIDAC SQ 03/23/24 07:30 03/23/24 08:32 DC Ondansetron HCl (zoFRAN 4MG TABLET) 4 mg Q6H PRN PO NAUSEA/VOMITING 03/22/24 21:00 04/21/24 20:59 Vital Signs (last 8hr) Date Time Temp Pulse Resp B/P (MAP) Pulse Ox O2 Delivery O2 Flow Rate FiO2 03/23/24 12:35 97.9 70 20 134/66 96 Room Air* 0 21 03/23/24 10:52 97.5 79 19 107/48 96 Room Air* 0 21 03/23/24 07:40 97.3 94 20 121/54 95 Room Air* 0 21 DIAGNOSTICS / RADIOLOGY: REASON: WEAKNESS ORDERING PHYSICIAN: MICHELLE KHAN MD PROCEDURE: CXR1VW - CHEST 1VW PORTABLE CHEST RADIOGRAPH INDICATION: WEAKNESS COMPARISON: 03/09/2024 FINDINGS: Heart size is normal. The pulmonary vascularity and juliet appear normal. No abnormal pulmonary parenchymal opacity or consolidation identified. No significant pleural effusion noted. No pneumothorax detected. IMPRESSION: No radiographic evidence for any acute cardiopulmonary process. DICTATED BY: SMITA CUETO MD DATE: 03/22/24 5532 LABORATORY: [ ] Hematology Labs: Test 03/23/24 06:56 03/22/24 16:30 Range/Units White Blood Count 5.9 4.8-10.8 K/uL Red Blood Count 3.24 L 4.00-5.50 MIL/uL Hemoglobin 10.2 L 12.0-16.0 g/dL Hematocrit 31.9 L 36-48 % Mean Corpuscular Volume 98.5 79-99 fL Mean Corpuscular Hemoglobin 31.5 27.0-33.0 pg Mean Corpuscular Hemoglobin Concent 32.0 32.0-36.0 g/dL Red Cell Distribution Width 14.1 11.0-15.5 % Platelet Count 154 130-400 K/uL Mean Platelet Volume 9.9 7.5-10.5 fL Immature Granulocyte % (Auto) 3.2 H 0-1 % Neutrophils (%) (Auto) 73.6 40.0-77.0 % Lymphocytes (%) (Auto) 20.6 L 21.0-51.0 % Monocytes (%) (Auto) 2.0 L 3.0-13.0 % Eosinophils (%) (Auto) 0.3 0.0-8.0 % Basophils (%) (Auto) 0.3 0.0-5.0 % Neutrophils # (Auto) 4.3 1.8-7.7 K/uL Lymphocytes # (Auto) 1.2 1.0-4.8 K/uL Monocytes # (Auto) 0.1 0.1-1.0 K/uL Eosinophils # (Auto) 0.02 0.00-0.70 K/uL Basophils # (Auto) 0.02 0.00-0.20 K/uL Absolute Immature Granulocyte (auto 0.19 0-1 K/uL Nucleated Red Blood Cells 0.0 0.0-0.19 % Red Blood Cell Morphology See comments Chemistry Labs: Test 03/23/24 11:23 03/23/24 06:56 03/22/24 16:30 Range/Units Whole Blood Glucose 120 H 70-110 MG/DL Sodium Level 142 136-145 mmol/L Potassium Level 4.7 3.5-5.1 mmol/L Chloride Level 104 101-111 mmol/L Carbon Dioxide Level 28 21-32 mmol/L Blood Urea Nitrogen 91 *H 7-18 mg/dL Creatinine 3.8 H 0.5-1.0 mg/dL Glomerular Filtration Rate Calc 11 >90 mL/min Random Glucose 179 #H 70-105 mg/dL Hemoglobin A1c 6.3 H 4.0-6.0 % Estimated Average Glucose (eAG) 134 H 70-126 mg/dL Total Calcium 8.4 L 8.5-10.1 mg/dL Magnesium Level 2.50 H 1.80-2.40 mg/dL Lactic Acid Level 1.5 0.8-2.5 mmol/L Troponin I High Sensitivity 16 4-50 ng/L B-Type Natriuretic Peptide 33 0-100 pg/mL ASSESSMENT: Acute on chronic renal failure Hypotension Generalized weakness Anemia Dementia Bronchitis with wheezing Diabetes mellitus type 2 Diabetic nephropathy Hypertension Hypothyroidism Hyperlipidemia PLAN: Labs, diagnostic, radiologic exams reviewed and interpreted by myself and supervising physician. We have reviewed external records in detail Order speech evaluation concern for aspiration Obtain UA today Use bladder scan to rule out urinary retention. Require close monitoring of renal function and electrolytes Order CBC, CMP, and electrolytes in am Continue with renally dosed antibiotics Renal diabetic diet BiPAP as necessary, for respiratory distress Monitor blood pressure adjust medication doses as needed Avoid hypotensive episodes May use Dilaudid 0.5 mg IV every 6 hours as needed for severe pain Monitor blood sugars Strict intake, output, and daily weight should be monitored Please renally adjust medications Avoid nephrotoxic and nonsteroidal drugs Avoid contrast if possible Will continue to monitor renal function, anemia, electrolytes Treatment plan discussed with patient Questions were answered We have discussed with the other team physicians in detail about the care plan We will continue to monitor the patient closely Thank you for allowing us to participate in the care of this patient ATTESTATION BY PHYSICIAN I have seen and examined the patient. I reviewed the documentation, medical decision making, and treatment plan as noted by the mid-level provider above. I agree with the findings and plan of care. FAITH ROMERO MD, [facility] Mar 23, 2024 14:45
--- NOTE | 2024-03-23 15:43 | NUR ---
BLADDER SCAN SHOWS 118 ML.
--- NOTE | 2024-03-23 15:45 | NUR ---
BEDSIDE SWALLOW EVAL COMPLETED. No s/s of aspiration with baseline diet. Recommend mechanical soft/ground (mince & moist) solids, thin liquids and pills crushed with pureed as tolerated. Compensatory strategies: 1. sit upright during oral intake 2. small bites/sips 3. slow oral intake 4. supervision during oral intake recommended due to dementia AGRICULTURAL AND FORESTRY SUPERVISOR reviewed results and recommendations with patient/family and nurse Bet. AGRICULTURAL AND FORESTRY SUPERVISOR educated patient on risks and consequences of aspiration. Speech therapy not warranted at this time. All questions answered. Addendum: 03/23/[address] [facility] Amended: Links added.
--- NOTE | 2024-03-23 15:50 | NUR ---
SPEECH THERAPY RECOMMENDATIONS FOOD/SOLIDS: MINCED & MOIST LIQUIDS: THIN MEDS: CRUSHED WITH PUREED COMPENSATORY STRATEGIES: SMALL BITES/SIPS, SIT UPRIGHT, SLOW ORAL INTAKE.
[2024-03-23] MEDS: INSULIN LISpro 100 UNIT/ML 3ML SQ SCH (16:30)
--- NOTE | 2024-03-23 18:45 | NUR ---
ATTEMPTED TO CHANGE DIAPER AND OBTAIN URINE SAMPLE VIA STRAIGHT CATH.PATIENT HAD A COUGHING FIT THAT LASTED FOR ABOUT 10 MINS.PATIEN SET UP AND OXYGEN PROVIDED VIA NON-REBREATHER AT 10 L/MIN FOR 5 MINS.SHE THE TRANSFERRED TO [facility] AT 2L/MIN. SPO2 99%.COUGHING STOPPED BY 18:55.
--- NOTE | 2024-03-23 20:35 | PN ---
MEDICAL FOLLOWUP NOTE DATE OF SERVICE: 03/23/2024 SUBJECTIVE: The patient seen and examined at bedside. Awake, alert, bedbound debility. No nausea or vomiting. No diarrhea. No bleeding tendency. No rashes. No joint swelling or redness. The patient and family was updated at bedside. The patient has been evaluated by Nephrology. There is slight improvement in renal function. PHYSICAL EXAMINATION: VITAL SIGNS: Temperature 97.6. EYES: No icterus. Pupils equal and reactive. HENT: No oral thrush seen. Moist oral mucosa. NECK: Supple, no JVD, no thyromegaly. LUNGS: Good air entry. No rales, no rhonchi. Crackles bilaterally. CARDIOVASCULAR: S1, S2 regular. No murmur heard. ABDOMEN: Obese, soft, nontender. Bowel sounds are present. CENTRAL NERVOUS SYSTEM: The patient is awake, alert, bedbound debility. SKIN: No rashes, no itchiness. LYMPHATIC: No peripheral lymphadenopathy. BACK: No deformity, no pressure ulcer. HEMATOLOGIC: No bleeding or petechial lesions present. LABORATORY DATA: Sodium 142, potassium 4.7, BUN 91, creatinine 3.8. ASSESSMENT: An 88-year-old female presenting with weakness and hypotension. Current problems include: * Acute on chronic renal failure. * Dehydration. * Diabetes mellitus. * Dementia. * Anemia. * Debility. PLAN: * Continue IV fluid. * Continue antidiabetic. * Continue pain management. * Continue nutritional support. * Continue GI prophylaxis. * Monitor electrolytes. * Avoid nephrotoxic medication. TID: [id number] RECEIPT: [id number]
[2024-03-23 22:50] VITALS: BP 138/68; PULSE 69; RESP 20; TEMP 98; O2SAT 94
[2024-03-23] MEDS ORDERED: PHARMACY COMMUNICATION MISC SCH (23:00)
[2024-03-24] VITALS (12 sets, daily range): BP systolic 117–137; BP diastolic 62–90; PULSE 67–78; RESP 18–21; TEMP 97.8–98.3; O2SAT 93–98
[2024-03-24 06:03] LABS: BASOPHILS # (AUTO) 0.03 K/uL (0.00-0.20); BASOPHILS % (AUTO) 0.4 % (0.0-5.0); EOSINOPHILS # (AUTO) 0.25 K/uL (0.00-0.70); EOSINOPHILS % (AUTO) 3.3 % (0.0-8.0); IMMATURE GRANULOCYTE ABSOLUTE 0.12 K/uL (0-1); LYMPHOCYTES # (AUTO) 2.8 K/uL (1.0-4.8); LYMPHOCYTES % (AUTO) 36.8 % (21.0-51.0); MEAN CORPUSCULAR HEMOGLOBIN 31.7 pg (27.0-33.0); MEAN CORPUSCULAR HGB CONC 31.7 g/dL (32.0-36.0); MONOCYTES # (AUTO) 0.6 K/uL (0.1-1.0); NEUTROPHILS # (AUTO) 3.7 K/uL (1.8-7.7); NEUTROPHILS % (AUTO) 49.9 % (40.0-77.0); PLATELET COUNT (AUTO) 184 K/uL (130-400); RED CELL DISTRIBUTION WIDTH 14.4 % (11.0-15.5); WHITE BLOOD COUNT (AUTO) 7.5 K/uL (4.8-10.8)
[2024-03-24 06:23] LABS: ALBUMIN 2.6 g/dL (3.5-5.0); BILIRUBIN,TOTAL 0.2 mg/dL (0.2-1.0); CREATININE 2.6 mg/dL (0.5-1.0); THYROID STIMULATING HORMONE 3.41 uIU/mL (0.36-3.74); TOTAL PROTEIN, SERUM 6.3 g/dL (6.0-8.3); URIC ACID 9.8 mg/dL (2.6-7.2)
[2024-03-24] MEDS ORDERED: LACTULOSE 20 GM/30 ML UDCUP PO PRN (10:30)
[2024-03-24] MEDS: IpraTROPium 0.5 MG/2.5 ML INH IH PRN (12:17)
--- NOTE | 2024-03-24 12:53 | HP ---
DATE OF SERVICE: 03/22/2024 PRESENTING COMPLAINT: Weakness, decreased blood pressure. HISTORY OF PRESENT ILLNESS: This is an 88-year-old female with obesity, hypertension, diabetes mellitus, and dementia, who was brought in from the senior living with weakness, decreased blood pressure, and cough. The patient found with BP below the 100 systolic and was sent to the hospital for further evaluation. The patient had cough, which is chronic. No documented fever or chills. The patient was recently discharged from this facility after managed as a case of pneumonia. During the previous admission, she was seen by Nephrology. on discharge was 2.1. Today, creatnine is 4.4 and BUN of 102. The patient has no nausea or vomiting and no diarrhea. No headache or dizziness. PAST MEDICAL HISTORY: * Dementia. * Diabetes mellitus. * Obesity. * Dyslipidemia. * Hypothyroidism. * Chronic kidney disease. * Pneumonia. PAST SURGICAL HISTORY: None. ALLERGIES: No known drug allergy. CURRENT MEDICATIONS: Reviewed. SOCIAL HISTORY: The patient at present at the senior living for rehabilitation. No alcohol, tobacco, or illicit drug use. FAMILY HISTORY: Positive for diabetes mellitus. REVIEW OF SYSTEMS: Greater than 10 systems were reviewed, negative except as documented above. PHYSICAL EXAMINATION: GENERAL: Elderly female, awake. VITAL SIGNS: Temperature 98.6, pulse 79, respirations 16, BP 125/58. EYES: No icterus. Pupils equal and reactive. HENT: No oral thrush seen. Moist oral mucosa. NECK: Supple. No JVD or thyromegaly. LUNGS: Few crackles, no rhonchi. CARDIOVASCULAR SYSTEM: S1, S2 regular. No murmur heard. ABDOMEN: Full, soft. Bowel sound is present. Obese. No organomegaly. CENTRAL NERVOUS SYSTEM: The patient is awake, alert, bedbound debility. No focal deficits. SKIN: No rashes, no itchiness. LYMPHATIC: No peripheral lymphadenopathy. BACK: No deformity, no pressure ulcer. MUSCULOSKELETAL: No joint swelling, erythema, or tenderness. LABORATORY DATA: Sodium 140, potassium 4.2. BUN 102, creatinine 4.4. WBC 7.1, hemoglobin 10.0, platelets 158. Influenza antigen negative. RADIOLOGY: Chest x-ray unremarkable. ASSESSMENT: An 88-year-old female presenting with cough, shortness of breath, and weakness. CURRENT PROBLEMS: Include: * Acute on chronic renal failure. * Dehydration. * Diabetes mellitus. * Debility. * Dementia. * Poor oral intake. PLAN: * Admit the patient to medical floor. * The patient will be placed on IV fluid. * ADA diet. * Insulin sliding scale. * Nephrology evaluation. * Home medication will be reconciled. * Lovenox for DVT prophylaxis. * Avoid nephrotoxic medication. TID: [id number] RECEIPT: [id number]
--- NOTE | 2024-03-24 13:25 | PN ---
NEPHROLOGY PROGRESS NOTE Date/Time Patient Seen: Mar 24, 2024 Reason for Consultation: 13:24 SUBJECTIVE: This is an 88 year-old female with a past medical history of dementia, diabetes mellitus type 2, hyperlipidemia, hypertension, hypothyroidism, chronic kidney disease. She presented to the emergency room from [facility] with complaints of hypotension. She was noted to have elevated BUN/creatinine. We are consulted for renal failure Renal function is improving Electrolytes are stable. Pending speech evaluation She was seen in the medial floor. Family members at the bedside, multiple questions were answered Prognosis remains guarded REVIEW OF SYSTEMS: GENERAL: Negative for any nausea, vomiting, fevers, chills, or weight loss. NEUROLOGIC: Negative for any blurry vision, blind spots, double vision, facial asymmetry, dysphagia, dysarthria, hemiparesis, hemisensory deficits, vertigo, ataxia. HEENT: Negative for any head trauma, neck trauma, neck stiffness, photophobia, phonophobia, sinusitis, rhinitis. CARDIAC: Negative for any chest pain, dyspnea on exertion, paroxysmal nocturnal dyspnea, peripheral edema. PULMONARY: Negative for any shortness of breath, wheezing, COPD, or TB exposure. GASTROINTESTINAL: Negative for any abdominal pain, nausea, vomiting, bright red blood per rectum, melena. GENITOURINARY: Negative for any dysuria, hematuria, incontinence. INTEGUMENTARY: Negative for any rashes, cuts, insect bites. RHEUMATOLOGIC: Negative for any joint pains, photosensitive rashes, history of vasculitis or kidney problems. HEMATOLOGIC: Negative for any abnormal bruising, frequent infections or bleeding. PHYSICAL EXAM: GENERAL: Alert and oriented x 3. No acute distress. Well-nourished. EYES: EOMI. Anicteric. HENT: Moist mucous membranes. No scleral icterus. No cervical lymphadenopathy. LUNGS: Clear to auscultation bilaterally. No accessory muscle use. CARDIOVASCULAR: Regular rate and rhythm. No murmur. No JVD. ABDOMEN: Soft, non-tender and non-distended. No palpable masses. EXTREMITIES: No edema. Non-tender.?SKIN: No rashes or lesions. Warm. NEUROLOGIC: No focal neurological deficits. CN II-XII grossly intact, but not individually tested. PSYCHIATRIC: Cooperative. Appropriate mood and affect. LABORATORY: [ ] Hematology Labs: Test 03/24/24 05:40 03/22/24 16:30 Range/Units White Blood Count 7.5 # 4.8-10.8 K/uL Red Blood Count 3.00 L 4.00-5.50 MIL/uL Hemoglobin 9.5 L 12.0-16.0 g/dL Hematocrit 30.0 L 36-48 % Mean Corpuscular Volume 100.0 H 79-99 fL Mean Corpuscular Hemoglobin 31.7 27.0-33.0 pg Mean Corpuscular Hemoglobin Concent 31.7 L 32.0-36.0 g/dL Red Cell Distribution Width 14.4 11.0-15.5 % Platelet Count 184 130-400 K/uL Mean Platelet Volume 10.1 7.5-10.5 fL Immature Granulocyte % (Auto) 1.6 H 0-1 % Neutrophils (%) (Auto) 49.9 40.0-77.0 % Lymphocytes (%) (Auto) 36.8 21.0-51.0 % Monocytes (%) (Auto) 8.0 3.0-13.0 % Eosinophils (%) (Auto) 3.3 0.0-8.0 % Basophils (%) (Auto) 0.4 0.0-5.0 % Neutrophils # (Auto) 3.7 1.8-7.7 K/uL Lymphocytes # (Auto) 2.8 1.0-4.8 K/uL Monocytes # (Auto) 0.6 0.1-1.0 K/uL Eosinophils # (Auto) 0.25 0.00-0.70 K/uL Basophils # (Auto) 0.03 0.00-0.20 K/uL Absolute Immature Granulocyte (auto 0.12 0-1 K/uL Nucleated Red Blood Cells 0.0 0.0-0.19 % Red Blood Cell Morphology See comments Chemistry Labs: Test 03/24/24 05:40 03/24/24 05:37 03/23/24 06:56 03/22/24 16:30 Range/Units Sodium Level 145 136-145 mmol/L Potassium Level 4.0 3.5-5.1 mmol/L Chloride Level 108 101-111 mmol/L Carbon Dioxide Level 29 21-32 mmol/L Blood Urea Nitrogen 76 *H 7-18 mg/dL Creatinine 2.6 H 0.5-1.0 mg/dL Glomerular Filtration Rate Calc 17 >90 mL/min Random Glucose 90 70-105 mg/dL Uric Acid 9.8 H 2.6-7.2 mg/dL Total Calcium 8.7 8.5-10.1 mg/dL Phosphorus Level 3.0 2.5-4.9 mg/dL Total Bilirubin 0.2 0.2-1.0 mg/dL Aspartate Amino Transf (AST/SGOT) 37 10-37 U/L Alanine Aminotransferase (ALT/SGPT) 26 12-78 U/L Alkaline Phosphatase 51 50-136 U/L Total Protein 6.3 6.0-8.3 g/dL Albumin 2.6 L 3.5-5.0 g/dL Thyroid Stimulating Hormone (TSH) 3.41 0.36-3.74 uIU/mL Whole Blood Glucose 91 70-110 MG/DL Hemoglobin A1c 6.3 H 4.0-6.0 % Estimated Average Glucose (eAG) 134 H 70-126 mg/dL Magnesium Level 2.50 H 1.80-2.40 mg/dL Lactic Acid Level 1.5 0.8-2.5 mmol/L Troponin I High Sensitivity 16 4-50 ng/L B-Type Natriuretic Peptide 33 0-100 pg/mL DIAGNOSTICS / RADIOLOGY: REASON: WEAKNESS ORDERING PHYSICIAN: MICHELLE KHAN MD PROCEDURE: CXR1VW - CHEST 1VW PORTABLE CHEST RADIOGRAPH INDICATION: WEAKNESS COMPARISON: 03/09/2024 FINDINGS: Heart size is normal. The pulmonary vascularity and juliet appear normal. No abnormal pulmonary parenchymal opacity or consolidation identified. No significant pleural effusion noted. No pneumothorax detected. IMPRESSION: No radiographic evidence for any acute cardiopulmonary process. DICTATED BY: SMITA CUETO MD DATE: 03/22/24 9503 ASSESSMENT: Acute on chronic renal failure Hypotension Generalized weakness Anemia Dementia Bronchitis with wheezing Diabetes mellitus type 2 Diabetic nephropathy Hypertension Hypothyroidism Hyperlipidemia PLAN: Labs, diagnostic, radiologic exams reviewed and interpreted by myself and [facility] physician. We have reviewed external records in detail Pending speech evaluation Require close monitoring of renal function and electrolytes Order CBC, CMP, and electrolytes in am Continue with renally dosed antibiotics Renal diabetic diet BiPAP as necessary, for respiratory distress Monitor blood pressure adjust medication doses as needed Avoid hypotensive episodes May use Dilaudid 0.5 mg IV every 6 hours as needed for severe pain Monitor blood sugars Strict intake, output, and daily weight should be monitored Please renally adjust medications Avoid nephrotoxic and nonsteroidal drugs Avoid contrast if possible Will continue to monitor renal function, anemia, electrolytes Treatment plan discussed with patient Questions were answered We have discussed with the other team physicians in detail about the care plan We will continue to monitor the patient closely ATTESTATION BY PHYSICIAN I have seen and examined the patient. I reviewed the documentation, medical decision making, and treatment plan as noted by the mid-level provider above. I agree with the findings and plan of care. FAITH ROMERO MD, [facility] Mar 24, 2024 13:25
--- NOTE | 2024-03-24 16:05 | NUR ---
DCP Per Gm Delgado Jr, son/POA [phone] who lives in [place], [facility] mother is at [facility] and has a sample case porter, name unknown. States her ADL's are full assist. All medical devices are available to her at the SNF, as needed. Denies need for oxygen or dialysis at this time but available at SNF. PCP - [facility] in house provider Pharmacy - [facility] in house. All discharge needs to be discussed with [facility]. Consent signed by Gm Delgado Jr, son/POA [phone]. Addendum: 03/24/24 at 1611 by EDWIGE FREDERICK RN CM Amended: Links added.
[2024-03-24] MEDS: divALPRoex SOdium 250 MG TAB PO SCH (20:19)
[2024-03-24] MEDS: TORSEMIDE 20 MG TAB PO SCH (20:19)
[2024-03-24] MEDS: mirtAZAPine 15 MG TABLET PO SCH (20:19)
[2024-03-24] MEDS: MELATONIN 5 MG TABLET PO SCH (20:19)
[2024-03-24] MEDS: atorVAStatin 10 MG TABLET PO SCH (20:19)
[2024-03-24] MEDS: doCUSate SODIUM 100 MG CAP PO SCH (20:19)
--- NOTE | 2024-03-24 22:17 | PN ---
INFECTIOUS DISEASE PROGRESS NOTE Date of Service: Mar 24, 2024 SUBJECTIVE: This is a 88-year-old female patient who was sent over from [facility] for evaluation of low blood pressure, of weakness and cough. Patient was found on on acute on chronic renal failure with a BUN of 102 and creatinine of 4.4. Patient was seen and examined at bedside in room 314. Patient is awake, alert but unable to communicate needs. No difficulty breathing observe, patient however is currently on oxygen via nasal cannula at 2 liters/minute. Patient's family present at bedside. Questions answered. Renal function improving, BUN trended down to 76 and a creatinine of 2.6. No reports of nausea or vomiting. We will have Physical therapy evaluate and treat. PHYSICAL EXAM EYES: Anicteric. Pupils equal and reactive. HENT: No oral thrush seen, moist Oral mucosa NECK: Supple, no JVD or thyromegaly. LUNGS: Good air entry. No rales, no rhonchi. CARDIOVASCULAR: S1, S2 regular. No murmur heard. ABDOMEN: Soft, non tender, bowel sounds present, no organomegaly CENTRAL NERVOUS SYSTEM: Awake, alert, oriented x 1. SKIN: No rashes, no swelling. LYMPHATICS: No peripheral lymphadenopathy. MUSCULOSKELETAL: No joint swelling, erythema or tenderness. EXTREMITIES: No cyanosis or clubbing. Weakness. BACK: No deformity, no pressure ulcer. GENITOURINARY: No dysuria or hematuria Vital Sign (Last 12 Hours) 03/24/24 03/24/24 03/24/24 03/24/24 12:00 12:17 12:25 16:00 Temp 97.9 97.9 Pulse 72 73 72 78 Resp 18 18 18 21 B/P (MAP) 137/78 130/90 Pulse Ox 94 97 O2 Delivery Room Air N/Cannula Low lpm Nasal Cannula O2 Flow Rate 2.0 2.0 FiO2 28 03/24/24 03/24/24 03/24/24 03/24/24 19:02 19:04 19:32 20:00 Temp 98.2 Pulse 72 73 78 Resp 18 18 21 B/P (MAP) 127/76 Pulse Ox 95 93 O2 Delivery N/Cannula Low lpm Nasal Cannula* Nasal Cannula O2 Flow Rate 2.0 2 2.0 FiO2 28 28 24 LABS: Laboratory: Test 03/24/24 05:40 03/24/24 05:37 03/23/24 06:56 Range/Units White Blood Count 7.5 # 4.8-10.8 K/uL Red Blood Count 3.00 L 4.00-5.50 MIL/uL Hemoglobin 9.5 L 12.0-16.0 g/dL Hematocrit 30.0 L 36-48 % Mean Corpuscular Volume 100.0 H 79-99 fL Mean Corpuscular Hemoglobin 31.7 27.0-33.0 pg Mean Corpuscular Hemoglobin Concent 31.7 L 32.0-36.0 g/dL Red Cell Distribution Width 14.4 11.0-15.5 % Platelet Count 184 130-400 K/uL Mean Platelet Volume 10.1 7.5-10.5 fL Immature Granulocyte % (Auto) 1.6 H 0-1 % Neutrophils (%) (Auto) 49.9 40.0-77.0 % Lymphocytes (%) (Auto) 36.8 21.0-51.0 % Monocytes (%) (Auto) 8.0 3.0-13.0 % Eosinophils (%) (Auto) 3.3 0.0-8.0 % Basophils (%) (Auto) 0.4 0.0-5.0 % Neutrophils # (Auto) 3.7 1.8-7.7 K/uL Lymphocytes # (Auto) 2.8 1.0-4.8 K/uL Monocytes # (Auto) 0.6 0.1-1.0 K/uL Eosinophils # (Auto) 0.25 0.00-0.70 K/uL Basophils # (Auto) 0.03 0.00-0.20 K/uL Absolute Immature Granulocyte (auto 0.12 0-1 K/uL Nucleated Red Blood Cells 0.0 0.0-0.19 % Sodium Level 145 136-145 mmol/L Potassium Level 4.0 3.5-5.1 mmol/L Chloride Level 108 101-111 mmol/L Carbon Dioxide Level 29 21-32 mmol/L Blood Urea Nitrogen 76 *H 7-18 mg/dL Creatinine 2.6 H 0.5-1.0 mg/dL Glomerular Filtration Rate Calc 17 >90 mL/min Random Glucose 90 70-105 mg/dL Uric Acid 9.8 H 2.6-7.2 mg/dL Total Calcium 8.7 8.5-10.1 mg/dL Phosphorus Level 3.0 2.5-4.9 mg/dL Total Bilirubin 0.2 0.2-1.0 mg/dL Aspartate Amino Transf (AST/SGOT) 37 10-37 U/L Alanine Aminotransferase (ALT/SGPT) 26 12-78 U/L Alkaline Phosphatase 51 50-136 U/L Total Protein 6.3 6.0-8.3 g/dL Albumin 2.6 L 3.5-5.0 g/dL Thyroid Stimulating Hormone (TSH) 3.41 0.36-3.74 uIU/mL Whole Blood Glucose 91 70-110 MG/DL Hemoglobin A1c 6.3 H 4.0-6.0 % Estimated Average Glucose (eAG) 134 H 70-126 mg/dL Magnesium Level 2.50 H 1.80-2.40 mg/dL ASSESSMENT: Acute on chronic renal failure. Dehydration Diabetes mellitus. Dementia. Debility. Failure to thrive PLAN: Nephrology has been consulted and following patient. Avoid nephrotoxic medications. Glucometer checks a.c./hs and cover with insulin per sliding scale protocol. Discontinue IV fluids. Continue nutritional support. Physical therapy to evaluate and treat. Home medications reviewed and reconciled. This case was reviewed and discussed with my supervising physician and the above assessment and plan was formulated and agreed upon. ATTESTATION BY PHYSICIAN I have seen and examined the patient. I reviewed the documentation, medical decision making, and treatment plan as noted by the mid-level provider above. I agree with the findings and plan of care. BRAD MCGRAW MD, MIRTA L [facility] TE[facility] Mar 24, 2024 22:17
[2024-03-25] VITALS (14 sets, daily range): BP systolic 103–139; BP diastolic 51–87; PULSE 65–79; RESP 18–20; TEMP 98–98.8; O2SAT 96–99
[2024-03-25 05:46] LABS: BASOPHILS # (AUTO) 0.03 K/uL (0.00-0.20); BASOPHILS % (AUTO) 0.5 % (0.0-5.0); EOSINOPHILS # (AUTO) 0.46 K/uL (0.00-0.70); HEMATOCRIT 28.7 % (36-48); IMMATURE GRANULOCYTE ABSOLUTE 0.14 K/uL (0-1); LYMPHOCYTES # (AUTO) 2.9 K/uL (1.0-4.8); LYMPHOCYTES % (AUTO) 43.3 % (21.0-51.0); MEAN CORPUSCULAR HEMOGLOBIN 30.7 pg (27.0-33.0); MONOCYTES # (AUTO) 0.5 K/uL (0.1-1.0); MONOCYTES % (AUTO) 8.2 % (3.0-13.0); NEUTROPHILS # (AUTO) 2.6 K/uL (1.8-7.7); NEUTROPHILS % (AUTO) 38.9 % (40.0-77.0); PLATELET COUNT (AUTO) 162 K/uL (130-400); RED CELL DISTRIBUTION WIDTH 13.8 % (11.0-15.5); WHITE BLOOD COUNT (AUTO) 6.6 K/uL (4.8-10.8)
[2024-03-25] MEDS: levoTHYROxine 50 MCG TABLET PO SCH (05:51)
[2024-03-25 06:14] LABS: ALBUMIN 2.3 g/dL (3.5-5.0); BILIRUBIN,TOTAL 0.2 mg/dL (0.2-1.0); CREATININE 2.1 mg/dL (0.5-1.0); MAGNESIUM 1.9 mg/dL (1.80-2.40); PHOSPHORUS 2.9 mg/dL (2.5-4.9); TOTAL PROTEIN, SERUM 5.5 g/dL (6.0-8.3)
[2024-03-25] MEDS: LoSARTan 50 MG TABLET PO SCH (07:56)
[2024-03-25] MEDS: Vitamin B Complex/Vit C/Folic Acid PO SCH (07:57)
[2024-03-25] MEDS: citaLOPram 20 MG TABLET PO SCH (07:57)
[2024-03-25] MEDS: venLAFAXine HCL XR 37.5 MG CAP 37.5 MG CAP.ER.24H PO SCH (07:57)
[2024-03-25] MEDS: ASCORBIC ACID 500 MG TAB PO SCH (07:57)
[2024-03-25] MEDS: FERROUS SULFATE 325 MG TABLET.DR PO SCH (07:58)
[2024-03-25] MEDS: CHOLECALCIFEROL 25 MCG PO SCH (07:58)
[2024-03-25] MEDS: fluTICasone proPIONate 50MCG/SPRAY 16 GM BOTTLE EN SCH (08:07)
--- NOTE | 2024-03-25 15:10 | PN ---
NEPHROLOGY PROGRESS NOTE Date/Time Patient Seen: Mar 25, 2024 Reason for Consultation: 15:09 SUBJECTIVE: This is an 88 year-old female with a past medical history of dementia, diabetes mellitus type 2, hyperlipidemia, hypertension, hypothyroidism, chronic kidney disease. She presented to the emergency room from [facility] with complaints of hypotension. She was noted to have elevated BUN/creatinine. We are consulted for renal failure Renal function is improving Electrolytes show sodium of 147. Pending speech evaluation She was seen in the medial floor. Family members at the bedside, multiple questions were answered Prognosis remains guarded REVIEW OF SYSTEMS: GENERAL: Negative for any nausea, vomiting, fevers, chills, or weight loss. NEUROLOGIC: Negative for any blurry vision, blind spots, double vision, facial asymmetry, dysphagia, dysarthria, hemiparesis, hemisensory deficits, vertigo, ataxia. HEENT: Negative for any head trauma, neck trauma, neck stiffness, photophobia, phonophobia, sinusitis, rhinitis. CARDIAC: Negative for any chest pain, dyspnea on exertion, paroxysmal nocturnal dyspnea, peripheral edema. PULMONARY: Negative for any shortness of breath, wheezing, COPD, or TB exposure. GASTROINTESTINAL: Negative for any abdominal pain, nausea, vomiting, bright red blood per rectum, melena. GENITOURINARY: Negative for any dysuria, hematuria, incontinence. INTEGUMENTARY: Negative for any rashes, cuts, insect bites. RHEUMATOLOGIC: Negative for any joint pains, photosensitive rashes, history of vasculitis or kidney problems. HEMATOLOGIC: Negative for any abnormal bruising, frequent infections or bleeding. PHYSICAL EXAM: GENERAL: Alert and oriented x 3. No acute distress. Well-nourished. EYES: EOMI. Anicteric. HENT: Moist mucous membranes. No scleral icterus. No cervical lymphadenopathy. LUNGS: Clear to auscultation bilaterally. No accessory muscle use. CARDIOVASCULAR: Regular rate and rhythm. No murmur. No JVD. ABDOMEN: Soft, non-tender and non-distended. No palpable masses. EXTREMITIES: No edema. Non-tender.?SKIN: No rashes or lesions. Warm. NEUROLOGIC: No focal neurological deficits. CN II-XII grossly intact, but not in dividually tested. PSYCHIATRIC: Cooperative. Appropriate mood and affect. LABORATORY: [ ] Hematology Labs: Test 03/25/24 05:30 Range/Units White Blood Count 6.6 4.8-10.8 K/uL Red Blood Count 2.90 L 4.00-5.50 MIL/uL Hemoglobin 8.9 L 12.0-16.0 g/dL Hematocrit 28.7 L 36-48 % Mean Corpuscular Volume 99.0 79-99 fL Mean Corpuscular Hemoglobin 30.7 27.0-33.0 pg Mean Corpuscular Hemoglobin Concent 31.0 L 32.0-36.0 g/dL Red Cell Distribution Width 13.8 11.0-15.5 % Platelet Count 162 130-400 K/uL Mean Platelet Volume 9.5 7.5-10.5 fL Immature Granulocyte % (Auto) 2.1 H 0-1 % Neutrophils (%) (Auto) 38.9 L 40.0-77.0 % Lymphocytes (%) (Auto) 43.3 21.0-51.0 % Monocytes (%) (Auto) 8.2 3.0-13.0 % Eosinophils (%) (Auto) 7.0 0.0-8.0 % Basophils (%) (Auto) 0.5 0.0-5.0 % Neutrophils # (Auto) 2.6 1.8-7.7 K/uL Lymphocytes # (Auto) 2.9 1.0-4.8 K/uL Monocytes # (Auto) 0.5 0.1-1.0 K/uL Eosinophils # (Auto) 0.46 0.00-0.70 K/uL Basophils # (Auto) 0.03 0.00-0.20 K/uL Absolute Immature Granulocyte (auto 0.14 0-1 K/uL Nucleated Red Blood Cells 0.0 0.0-0.19 % Chemistry Labs: Test 03/25/24 05:35 03/25/24 05:30 03/24/24 05:40 Range/Units Whole Blood Glucose 91 70-110 MG/DL Sodium Level 147 H 136-145 mmol/L Potassium Level 4.0 3.5-5.1 mmol/L Chloride Level 110 101-111 mmol/L Carbon Dioxide Level 29 21-32 mmol/L Blood Urea Nitrogen 54 #H 7-18 mg/dL Creatinine 2.1 H 0.5-1.0 mg/dL Glomerular Filtration Rate Calc 22 >90 mL/min Random Glucose 91 70-105 mg/dL Total Calcium 8.5 8.5-10.1 mg/dL Phosphorus Level 2.9 2.5-4.9 mg/dL Magnesium Level 1.90 1.80-2.40 mg/dL Total Bilirubin 0.2 0.2-1.0 mg/dL Aspartate Amino Transf (AST/SGOT) 44 H 10-37 U/L Alanine Aminotransferase (ALT/SGPT) 25 12-78 U/L Alkaline Phosphatase 51 50-136 U/L Total Protein 5.5 L 6.0-8.3 g/dL Albumin 2.3 L 3.5-5.0 g/dL Uric Acid 9.8 H 2.6-7.2 mg/dL Thyroid Stimulating Hormone (TSH) 3.41 0.36-3.74 uIU/mL DIAGNOSTICS / RADIOLOGY: REASON: WEAKNESS ORDERING PHYSICIAN: MICHELLE KHAN MD PROCEDURE: CXR1VW - CHEST 1VW PORTABLE CHEST RADIOGRAPH INDICATION: WEAKNESS COMPARISON: 03/09/2024 FINDINGS: Heart size is normal. The pulmonary vascularity and juliet appear normal. No abnormal pulmonary parenchymal opacity or consolidation identified. No significant pleural effusion noted. No pneumothorax detected. IMPRESSION: No radiographic evidence for any acute cardiopulmonary process. DICTATED BY: SMITA CUETO MD DATE: 03/22/24 0995 ASSESSMENT: Acute on chronic renal failure Hypotension Generalized weakness Anemia Dementia Bronchitis with wheezing Diabetes mellitus type 2 Diabetic nephropathy Hypertension Hypothyroidism Hyperlipidemia PLAN: Labs, diagnostic, radiologic exams reviewed and interpreted by myself and supervising physician. We have reviewed external records in detail Pending speech evaluation for concern of aspiration Require close monitoring of renal function and electrolytes Order CBC, CMP, and electrolytes in am Continue with renally dosed antibiotics Renal diabetic diet BiPAP as necessary, for respiratory distress Monitor blood pressure adjust medication doses as needed Avoid hypotensive episodes May use Dilaudid 0.5 mg IV every 6 hours as needed for severe pain Monitor blood sugars Strict intake, output, and daily weight should be monitored Please renally adjust medications Avoid nephrotoxic and nonsteroidal drugs Avoid contrast if possible Will continue to monitor renal function, anemia, electrolytes Treatment plan discussed with patient Questions were answered We have discussed with the other team physicians in detail about the care plan We will continue to monitor the patient closely ATTESTATION BY PHYSICIAN I have seen and examined the patient. I reviewed the documentation, medical decision making, and treatment plan as noted by the mid-level provider above. I agree with the findings and plan of care. FAITH ROMERO MD, ELIZABETH FNP Mar 25, 2024 15:10
--- NOTE | 2024-03-25 21:21 | PN ---
INFECTIOUS DISEASE PROGRESS NOTE Date of Service: Mar 25, 2024 SUBJECTIVE: This is a 88-year-old female patient who was sent over from [facility] for evaluation of low blood pressure, of weakness and cough. Patient was found on on acute on chronic renal failure with a BUN of 102 and creatinine of 4.4. Patient was seen and examined at bedside in room 314. Patient is awake, alert but disoriented. Has a history of dementia. Renal function continues to improve, the BUN is 54 and the creatinine is 2.1. Continues on oxygen via nasal cannula at 2 liters/minute. Patient's family present at bedside. Questions answered. Continues with poor oral intake and family members not sure if patient is having difficulty swallowing. We will have speech therapy to evaluate and treat. PHYSICAL EXAM EYES: Anicteric. Pupils equal and reactive. HENT: No oral thrush seen, moist Oral mucosa NECK: Supple, no JVD or thyromegaly. LUNGS: Good air entry. No rales, no rhonchi. CARDIOVASCULAR: S1, S2 regular. No murmur heard. ABDOMEN: Soft, non tender, bowel sounds present, no organomegaly CENTRAL NERVOUS SYSTEM: Awake, alert, oriented x 1. SKIN: No rashes, no swelling. LYMPHATICS: No peripheral lymphadenopathy. MUSCULOSKELETAL: No joint swelling, erythema or tenderness. EXTREMITIES: No cyanosis or clubbing. Weakness. BACK: No deformity, no pressure ulcer. GENITOURINARY: No dysuria or hematuria Vital Sign (Last 12 Hours) 03/25/24 03/25/24 03/25/24 03/25/24 11:31 11:42 11:43 15:11 Temp 98.6 98.1 Pulse 70 67 67 77 Resp 19 18 18 19 B/P (MAP) 128/65 139/87 Pulse Ox 99 99 O2 Delivery Nasal Cannula N/Cannula Low lpm Nasal Cannula O2 Flow Rate 2.0 2.0 2.0 FiO2 28 03/25/24 03/25/24 03/25/24 03/25/24 18:22 18:23 20:00 20:00 Temp 98.1 Pulse 71 71 79 Resp 18 18 20 B/P (MAP) 117/69 Pulse Ox 96 96 O2 Delivery N/Cannula Oximizer Hi LPM Room Air Nasal Cannula* O2 Flow Rate 2.0 2 FiO2 28 28 Intake & Output (last 24hrs) 03/24/24 03/24/24 03/25/24 15:00 23:00 07:00 Intake Total 360 ml Output Total 900 ml Balance -540 ml LABS: Laboratory: Test 03/25/24 15:24 03/25/24 05:30 03/24/24 05:40 Range/Units Whole Blood Glucose 95 70-110 MG/DL White Blood Count 6.6 4.8-10.8 K/uL Red Blood Count 2.90 L 4.00-5.50 MIL/uL Hemoglobin 8.9 L 12.0-16.0 g/dL Hematocrit 28.7 L 36-48 % Mean Corpuscular Volume 99.0 79-99 fL Mean Corpuscular Hemoglobin 30.7 27.0-33.0 pg Mean Corpuscular Hemoglobin Concent 31.0 L 32.0-36.0 g/dL Red Cell Distribution Width 13.8 11.0-15.5 % Platelet Count 162 130-400 K/uL Mean Platelet Volume 9.5 7.5-10.5 fL Immature Granulocyte % (Auto) 2.1 H 0-1 % Neutrophils (%) (Auto) 38.9 L 40.0-77.0 % Lymphocytes (%) (Auto) 43.3 21.0-51.0 % Monocytes (%) (Auto) 8.2 3.0-13.0 % Eosinophils (%) (Auto) 7.0 0.0-8.0 % Basophils (%) (Auto) 0.5 0.0-5.0 % Neutrophils # (Auto) 2.6 1.8-7.7 K/uL Lymphocytes # (Auto) 2.9 1.0-4.8 K/uL Monocytes # (Auto) 0.5 0.1-1.0 K/uL Eosinophils # (Auto) 0.46 0.00-0.70 K/uL Basophils # (Auto) 0.03 0.00-0.20 K/uL Absolute Immature Granulocyte (auto 0.14 0-1 K/uL Nucleated Red Blood Cells 0.0 0.0-0.19 % Sodium Level 147 H 136-145 mmol/L Potassium Level 4.0 3.5-5.1 mmol/L Chloride Level 110 101-111 mmol/L Carbon Dioxide Level 29 21-32 mmol/L Blood Urea Nitrogen 54 #H 7-18 mg/dL Creatinine 2.1 H 0.5-1.0 mg/dL Glomerular Filtration Rate Calc 22 >90 mL/min Random Glucose 91 70-105 mg/dL Total Calcium 8.5 8.5-10.1 mg/dL Phosphorus Level 2.9 2.5-4.9 mg/dL Magnesium Level 1.90 1.80-2.40 mg/dL Total Bilirubin 0.2 0.2-1.0 mg/dL Aspartate Amino Transf (AST/SGOT) 44 H 10-37 U/L Alanine Aminotransferase (ALT/SGPT) 25 12-78 U/L Alkaline Phosphatase 51 50-136 U/L Total Protein 5.5 L 6.0-8.3 g/dL Albumin 2.3 L 3.5-5.0 g/dL Uric Acid 9.8 H 2.6-7.2 mg/dL Thyroid Stimulating Hormone (TSH) 3.41 0.36-3.74 uIU/mL ASSESSMENT: Acute on chronic renal failure. Dehydration Diabetes mellitus. Dementia. Debility. Failure to thrive PLAN: Avoid nephrotoxic medications. Glucometer checks a.c./hs and cover with insulin per sliding scale protocol. Continue nutritional support. Physical therapy to evaluate and treat. Continue nutritional support. We will follow speech therapy recommendations. This case was reviewed and discussed with my supervising physician and the above assessment and plan was formulated and agreed upon. ATTESTATION BY PHYSICIAN I have seen and examined the patient. I reviewed the documentation, medical decision making, and treatment plan as noted by the mid-level provider above. I agree with the findings and plan of care. BRAD MCGRAW MD, MIRTA L [employer] Mar 25, 2024 21:21
[2024-03-26] VITALS (13 sets, daily range): BP systolic 112–127; BP diastolic 55–71; PULSE 67–75; RESP 18–22; TEMP 97.8–98.2; O2SAT 96–99
[2024-03-26 05:28] LABS: HEMATOCRIT 31.5 % (36-48); MEAN CORPUSCULAR HEMOGLOBIN 31.6 pg (27.0-33.0); MEAN CORPUSCULAR HGB CONC 32.1 g/dL (32.0-36.0); MEAN CORPUSCULAR VOLUME 98.4 fL (79-99); PLATELET COUNT (AUTO) 161 K/uL (130-400); RED CELL DISTRIBUTION WIDTH 13.4 % (11.0-15.5); WHITE BLOOD COUNT (AUTO) 7.3 K/uL (4.8-10.8)
[2024-03-26 05:48] LABS: CREATININE 1.9 mg/dL (0.5-1.0); PHOSPHORUS 3.6 mg/dL (2.5-4.9); POTASSIUM 4.2 mmol/L (3.5-5.1)
[2024-03-26 06:24] LABS: BASOPHILS % (MANUAL) 2 % (0-2); EOSINOPHILS % (MANUAL) 5 % (1-6); LYMPHOCYTES % (MANUAL) 50 % (22-44); MAN.DIFF COMMENT-IMPRESSION MANUAL DIFFERENTIAL; MONOCYTES % (MANUAL) 7 % (2-9); SEGMENTED NEUTROPHILS % 36 % (40-70); TOTAL CELLS COUNTED 100
--- NOTE | 2024-03-26 16:25 | PN ---
INFECTIOUS DISEASE PROGRESS NOTE Date of Service: Mar 26, 2024 SUBJECTIVE: This 88 year old female patient is being seen today at bedside. She is currently eating lunch with daughter at bedside. No fever or chills. No nausea or vomiting. Denies abdominal pain. Denies dysuria or hematuria. No chest pain or shortness of breath. Laying in bed calm. Kidney function has improved, creatinine 1.9. PHYSICAL EXAM EYES: Anicteric. Pupils equal and reactive. HENT: No oral thrush seen, moist Oral mucosa NECK: Supple, no JVD or thyromegaly. LUNGS: Good air entry. No rales, no rhonchi. CARDIOVASCULAR: S1, S2 regular. No murmur heard. ABDOMEN: Soft, non tender, bowel sounds present, no organomegaly CENTRAL NERVOUS SYSTEM: Awake, alert, oriented x 1. SKIN: No rashes, no swelling. LYMPHATICS: No peripheral lymphadenopathy. MUSCULOSKELETAL: No joint swelling, erythema or tenderness. EXTREMITIES: No cyanosis or clubbing. Weakness. BACK: No deformity, no pressure ulcer. GENITOURINARY: No dysuria or hematuria Vital Sign (Last 12 Hours) 03/26/24 03/26/24 03/26/24 03/26/24 07:11 07:12 08:00 08:00 Temp 98.2 Pulse 67 67 67 Resp 18 18 22 B/P (MAP) 123/66 Pulse Ox 98 99 O2 Delivery N/Cannula Oximizer Hi LPM Room Air Nasal Cannula* O2 Flow Rate 2.0 2 FiO2 28 28 03/26/24 03/26/24 03/26/24 11:56 11:58 12:00 Temp 97.9 Pulse 69 69 75 Resp 18 18 20 B/P (MAP) 119/68 Pulse Ox 99 O2 Delivery N/Cannula Oximizer Hi LPM Nasal Cannula O2 Flow Rate 2.0 2.0 FiO2 28 Intake & Output (last 24hrs) 03/25/24 03/25/24 03/26/24 15:00 23:00 07:00 Output Total 1200 ml Balance -1200 ml LABS: Laboratory: Test 03/26/24 05:11 03/25/24 05:30 Range/Units White Blood Count 7.3 4.8-10.8 K/uL Red Blood Count 3.20 L 4.00-5.50 MIL/uL Hemoglobin 10.1 L 12.0-16.0 g/dL Hematocrit 31.5 L 36-48 % Mean Corpuscular Volume 98.4 79-99 fL Mean Corpuscular Hemoglobin 31.6 27.0-33.0 pg Mean Corpuscular Hemoglobin Concent 32.1 32.0-36.0 g/dL Red Cell Distribution Width 13.4 11.0-15.5 % Platelet Count 161 130-400 K/uL Mean Platelet Volume 9.4 7.5-10.5 fL Segmented Neutrophils % 36 L 40-70 % Lymphocytes % (Manual) 50 H 22-44 % Monocytes % (Manual) 7 2-9 % Eosinophils % (Manual) 5 1-6 % Basophils % (Manual) 2 0-2 % Nucleated Red Blood Cells 0.0 0.0-0.19 % Differential Comment MANUAL DIFFERENTIAL White Cell Morphology Comment Platelet Morphology Comment See comments Red Blood Cell Morphology See comments Sodium Level 147 H 136-145 mmol/L Potassium Level 4.2 3.5-5.1 mmol/L Chloride Level 108 101-111 mmol/L Carbon Dioxide Level 31 21-32 mmol/L Blood Urea Nitrogen 47 H 7-18 mg/dL Creatinine 1.9 H 0.5-1.0 mg/dL Glomerular Filtration Rate Calc 25 >90 mL/min Whole Blood Glucose 82 70-110 MG/DL Random Glucose 84 70-105 mg/dL Total Calcium 8.6 8.5-10.1 mg/dL Phosphorus Level 3.6 2.5-4.9 mg/dL Immature Granulocyte % (Auto) 2.1 H 0-1 % Neutrophils (%) (Auto) 38.9 L 40.0-77.0 % Lymphocytes (%) (Auto) 43.3 21.0-51.0 % Monocytes (%) (Auto) 8.2 3.0-13.0 % Eosinophils (%) (Auto) 7.0 0.0-8.0 % Basophils (%) (Auto) 0.5 0.0-5.0 % Neutrophils # (Auto) 2.6 1.8-7.7 K/uL Lymphocytes # (Auto) 2.9 1.0-4.8 K/uL Monocytes # (Auto) 0.5 0.1-1.0 K/uL Eosinophils # (Auto) 0.46 0.00-0.70 K/uL Basophils # (Auto) 0.03 0.00-0.20 K/uL Absolute Immature Granulocyte (auto 0.14 0-1 K/uL Magnesium Level 1.90 1.80-2.40 mg/dL Total Bilirubin 0.2 0.2-1.0 mg/dL Aspartate Amino Transf (AST/SGOT) 44 H 10-37 U/L Alanine Aminotransferase (ALT/SGPT) 25 12-78 U/L Alkaline Phosphatase 51 50-136 U/L Total Protein 5.5 L 6.0-8.3 g/dL Albumin 2.3 L 3.5-5.0 g/dL ASSESSMENT: Acute on chronic renal failure, improving Dehydration Diabetes mellitus. Dementia. Debility. Failure to thrive PLAN: Avoid nephrotoxic medications. Glucometer checks a.c./hs and cover with insulin per sliding scale protocol. Continue nutritional support. Continue with Physical therapy. Please therapy to evaluate and treat. Continue aspiration precaution. This case was reviewed and discussed with my supervising physician and the above assessment and plan was formulated and agreed upon. CAT KIMBLE Mar 26, 2024 16:25
--- NOTE | 2024-03-26 16:50 | PN ---
NEPHROLOGY PROGRESS NOTE Date/Time Patient Seen: Mar 26, 2024 Reason for Consultation: 16:49 SUBJECTIVE: This is an 88 year-old female with a past medical history of dementia, diabetes mellitus type 2, hyperlipidemia, hypertension, hypothyroidism, chronic kidney disease. She presented to the emergency room from [facility] with complaints of hypotension. She was noted to have elevated BUN/creatinine. We are consulted for renal failure Renal function is improving Electrolytes show sodium of 147. She was seen in the medial floor. Family members at the bedside, multiple questions were answered Prognosis remains guarded REVIEW OF SYSTEMS: GENERAL: Negative for any nausea, vomiting, fevers, chills, or weight loss. NEUROLOGIC: Negative for any blurry vision, blind spots, double vision, facial asymmetry, dysphagia, dysarthria, hemiparesis, hemisensory deficits, vertigo, ataxia. HEENT: Negative for any head trauma, neck trauma, neck stiffness, photophobia, phonophobia, sinusitis, rhinitis. CARDIAC: Negative for any chest pain, dyspnea on exertion, paroxysmal nocturnal dyspnea, peripheral edema. PULMONARY: Negative for any shortness of breath, wheezing, COPD, or TB exposure. GASTROINTESTINAL: Negative for any abdominal pain, nausea, vomiting, bright red blood per rectum, melena. GENITOURINARY: Negative for any dysuria, hematuria, incontinence. INTEGUMENTARY: Negative for any rashes, cuts, insect bites. RHEUMATOLOGIC: Negative for any joint pains, photosensitive rashes, history of vasculitis or kidney problems. HEMATOLOGIC: Negative for any abnormal bruising, frequent infections or bleeding. PHYSICAL EXAM: GENERAL: Alert and oriented x 3. No acute distress. Well-nourished. EYES: EOMI. Anicteric. HENT: Moist mucous membranes. No scleral icterus. No cervical lymphadenopathy. LUNGS: Clear to auscultation bilaterally. No accessory muscle use. CARDIOVASCULAR: Regular rate and rhythm. No murmur. No JVD. ABDOMEN: Soft, non-tender and non-distended. No palpable masses. EXTREMITIES: No edema. Non-tender.?SKIN: No rashes or lesions. Warm. NEUROLOGIC: No focal neurological deficits. CN II-XII grossly intact, but not individually tested. PSYCHIATRIC: Cooperative. Appropriate mood and affect. LABORATORY: [ ] Hematology Labs: Test 03/26/24 05:11 03/25/24 05:30 Range/Units White Blood Count 7.3 4.8-10.8 K/uL Red Blood Count 3.20 L 4.00-5.50 MIL/uL Hemoglobin 10.1 L 12.0-16.0 g/dL Hematocrit 31.5 L 36-48 % Mean Corpuscular Volume 98.4 79-99 fL Mean Corpuscular Hemoglobin 31.6 27.0-33.0 pg Mean Corpuscular Hemoglobin Concent 32.1 32.0-36.0 g/dL Red Cell Distribution Width 13.4 11.0-15.5 % Platelet Count 161 130-400 K/uL Mean Platelet Volume 9.4 7.5-10.5 fL Segmented Neutrophils % 36 L 40-70 % Lymphocytes % (Manual) 50 H 22-44 % Monocytes % (Manual) 7 2-9 % Eosinophils % (Manual) 5 1-6 % Basophils % (Manual) 2 0-2 % Nucleated Red Blood Cells 0.0 0.0-0.19 % Differential Comment MANUAL DIFFERENTIAL White Cell Morphology Comment Platelet Morphology Comment See comments Red Blood Cell Morphology See comments Immature Granulocyte % (Auto) 2.1 H 0-1 % Neutrophils (%) (Auto) 38.9 L 40.0-77.0 % Lymphocytes (%) (Auto) 43.3 21.0-51.0 % Monocytes (%) (Auto) 8.2 3.0-13.0 % Eosinophils (%) (Auto) 7.0 0.0-8.0 % Basophils (%) (Auto) 0.5 0.0-5.0 % Neutrophils # (Auto) 2.6 1.8-7.7 K/uL Lymphocytes # (Auto) 2.9 1.0-4.8 K/uL Monocytes # (Auto) 0.5 0.1-1.0 K/uL Eosinophils # (Auto) 0.46 0.00-0.70 K/uL Basophils # (Auto) 0.03 0.00-0.20 K/uL Absolute Immature Granulocyte (auto 0.14 0-1 K/uL Chemistry Labs: Test 03/26/24 05:11 03/25/24 05:30 Range/Units Sodium Level 147 H 136-145 mmol/L Potassium Level 4.2 3.5-5.1 mmol/L Chloride Level 108 101-111 mmol/L Carbon Dioxide Level 31 21-32 mmol/L Blood Urea Nitrogen 47 H 7-18 mg/dL Creatinine 1.9 H 0.5-1.0 mg/dL Glomerular Filtration Rate Calc 25 >90 mL/min Whole Blood Glucose 82 70-110 MG/DL Random Glucose 84 70-105 mg/dL Total Calcium 8.6 8.5-10.1 mg/dL Phosphorus Level 3.6 2.5-4.9 mg/dL Magnesium Level 1.90 1.80-2.40 mg/dL Total Bilirubin 0.2 0.2-1.0 mg/dL Aspartate Amino Transf (AST/SGOT) 44 H 10-37 U/L Alanine Aminotransferase (ALT/SGPT) 25 12-78 U/L Alkaline Phosphatase 51 50-136 U/L Total Protein 5.5 L 6.0-8.3 g/dL Albumin 2.3 L 3.5-5.0 g/dL DIAGNOSTICS / RADIOLOGY: REASON: WEAKNESS ORDERING PHYSICIAN: MICHELLE KHAN MD PROCEDURE: CXR1VW - CHEST 1VW PORTABLE CHEST RADIOGRAPH INDICATION: WEAKNESS COMPARISON: 03/09/2024 FINDINGS: Heart size is normal. The pulmonary vascularity and juliet appear normal. No abnormal pulmonary parenchymal opacity or consolidation identified. No significant pleural effusion noted. No pneumothorax detected. IMPRESSION: No radiographic evidence for any acute cardiopulmonary process. DICTATED BY: SMITA CUETO MD DATE: 03/22/24 1745 ASSESSMENT: Acute on chronic renal failure Hypotension Generalized weakness Anemia Dementia Bronchitis with wheezing Diabetes mellitus type 2 Diabetic nephropathy Hypertension Hypothyroidism Hyperlipidemia PLAN: Labs, diagnostic, radiologic exams reviewed and interpreted by myself and supervising physician. We have reviewed external records in detail Require close monitoring of renal function and electrolytes Order CBC, CMP, and electrolytes in am Continue with renally dosed antibiotics Renal diabetic diet BiPAP as necessary, for respiratory distress Monitor blood pressure adjust medication doses as needed Avoid hypotensive episodes May use Dilaudid 0.5 mg IV every 6 hours as needed for severe pain Monitor blood sugars Strict intake, output, and daily weight should be monitored Please renally adjust medications Avoid nephrotoxic and nonsteroidal drugs Avoid contrast if possible Will continue to monitor renal function, anemia, electrolytes Treatment plan discussed with patient Questions were answered We have discussed with the other team physicians in detail about the care plan We will continue to monitor the patient closely ATTESTATION BY PHYSICIAN I have seen and examined the patient. I reviewed the documentation, medical decision making, and treatment plan as noted by the mid-level provider above. I agree with the findings and plan of care. I HAD A DETAILED DISCUSSION WITH THE FAMILY AND TOTAL TIME SPENT WAS 45 MINUTES FAITH ROMERO MD, [facility] Mar 26, 2024 16:50 FAITH ROMERO MD Mar 26, 2024 19:55
[2024-03-26] MEDS: guaiFENesin SUGAR-FREE 100 MG/5 ML UDCUP PO PRN (18:09)
[2024-03-27] VITALS (12 sets, daily range): BP systolic 105–122; BP diastolic 56–75; PULSE 68–78; RESP 18–20; TEMP 98.2–98.6; O2SAT 97–100
[2024-03-27 04:47] LABS: HEMATOCRIT 30.9 % (36-48); MEAN CORPUSCULAR HEMOGLOBIN 30.8 pg (27.0-33.0); MEAN CORPUSCULAR HGB CONC 30.7 g/dL (32.0-36.0); MEAN CORPUSCULAR VOLUME 100.3 fL (79-99); RED BLOOD CELL COUNT(AUTO) 3.08 MIL/uL (4.00-5.50); RED CELL DISTRIBUTION WIDTH 13.6 % (11.0-15.5); WHITE BLOOD COUNT (AUTO) 6.3 K/uL (4.8-10.8)
[2024-03-27 04:56] LABS: MAGNESIUM 1.5 mg/dL (1.80-2.40); POTASSIUM 3.8 mmol/L (3.5-5.1)
--- NOTE | 2024-03-27 10:00 | NUR ---
FAMILY MEMBERS CONCERN WITH PATIENT CURRENT MEDICATIONS, STATED THEY DO NOT WANT PATIENT TO BE IN DEPAKOTE OR CELEXA, I NOTIFIED MRS. ANN [employer]RO[employer] EMERGENCY SERVICES MANAGER FOR DR. MCGRAW.
--- NOTE | 2024-03-27 14:04 | PN ---
NEPHROLOGY PROGRESS NOTE Date/Time Patient Seen: Mar 27, 2024 Reason for Consultation: 14:03 SUBJECTIVE: This is an 88 year-old female with a past medical history of dementia, diabetes mellitus type 2, hyperlipidemia, hypertension, hypothyroidism, chronic kidney disease. She presented to the emergency room from [facility] with complaints of hypotension. She was noted to have elevated BUN/creatinine. We are consulted for renal failure Renal function is stable Electrolytes show sodium of 147. She was seen in the medial floor. Family members at the bedside, multiple questions were answered Prognosis remains guarded REVIEW OF SYSTEMS: GENERAL: Negative for any nausea, vomiting, fevers, chills, or weight loss. NEUROLOGIC: Negative for any blurry vision, blind spots, double vision, facial asymmetry, dysphagia, dysarthria, hemiparesis, hemisensory deficits, vertigo, ataxia. HEENT: Negative for any head trauma, neck trauma, neck stiffness, photophobia, phonophobia, sinusitis, rhinitis. CARDIAC: Negative for any chest pain, dyspnea on exertion, paroxysmal nocturnal dyspnea, peripheral edema. PULMONARY: Negative for any shortness of breath, wheezing, COPD, or TB exposure. GASTROINTESTINAL: Negative for any abdominal pain, nausea, vomiting, bright red blood per rectum, melena. GENITOURINARY: Negative for any dysuria, hematuria, incontinence. INTEGUMENTARY: Negative for any rashes, cuts, insect bites. RHEUMATOLOGIC: Negative for any joint pains, photosensitive rashes, history of vasculitis or kidney problems. HEMATOLOGIC: Negative for any abnormal bruising, frequent infections or bleeding. PHYSICAL EXAM: GENERAL: Alert and oriented x 3. No acute distress. Well-nourished. EYES: EOMI. Anicteric. HENT: Moist mucous membranes. No scleral icterus. No cervical lymphadenopathy. LUNGS: Clear to auscultation bilaterally. No accessory muscle use. CARDIOVASCULAR: Regular rate and rhythm. No murmur. No JVD. ABDOMEN: Soft, non-tender and non-distended. No palpable masses. EXTREMITIES: No edema. Non-tender.?SKIN: No rashes or lesions. Warm. NEUROLOGIC: No focal neurological deficits. CN II-XII grossly intact, but not individually tested. PSYCHIATRIC: Cooperative. Appropriate mood and affect. LABORATORY: [ ] Hematology Labs: Test 03/27/24 04:08 03/26/24 05:11 Range/Units White Blood Count 6.3 4.8-10.8 K/uL Red Blood Count 3.08 L 4.00-5.50 MIL/uL Hemoglobin 9.5 L 12.0-16.0 g/dL Hematocrit 30.9 L 36-48 % Mean Corpuscular Volume 100.3 H 79-99 fL Mean Corpuscular Hemoglobin 30.8 27.0-33.0 pg Mean Corpuscular Hemoglobin Concent 30.7 L 32.0-36.0 g/dL Red Cell Distribution Width 13.6 11.0-15.5 % Platelet Count 163 130-400 K/uL Mean Platelet Volume 9.7 7.5-10.5 fL Nucleated Red Blood Cells 0.0 0.0-0.19 % Segmented Neutrophils % 36 L 40-70 % Lymphocytes % (Manual) 50 H 22-44 % Monocytes % (Manual) 7 2-9 % Eosinophils % (Manual) 5 1-6 % Basophils % (Manual) 2 0-2 % Differential Comment MANUAL DIFFERENTIAL White Cell Morphology Comment Platelet Morphology Comment See comments Red Blood Cell Morphology See comments Chemistry Labs: Test 03/27/24 05:19 03/27/24 04:08 03/26/24 05:11 Range/Units Whole Blood Glucose 86 70-110 MG/DL Sodium Level 147 H 136-145 mmol/L Potassium Level 3.8 3.5-5.1 mmol/L Chloride Level 106 101-111 mmol/L Carbon Dioxide Level 34 H 21-32 mmol/L Blood Urea Nitrogen 38 H 7-18 mg/dL Creatinine 2.0 H 0.5-1.0 mg/dL Glomerular Filtration Rate Calc 23 >90 mL/min Random Glucose 81 70-105 mg/dL Total Calcium 8.3 L 8.5-10.1 mg/dL Magnesium Level 1.50 L 1.80-2.40 mg/dL Phosphorus Level 3.6 2.5-4.9 mg/dL DIAGNOSTICS / RADIOLOGY: REASON: WEAKNESS ORDERING PHYSICIAN: MICHELLE KHAN MD PROCEDURE: CXR1VW - CHEST 1VW PORTABLE CHEST RADIOGRAPH INDICATION: WEAKNESS COMPARISON: 03/09/2024 FINDINGS: Heart size is normal. The pulmonary vascularity and juliet appear normal. No abnormal pulmonary parenchymal opacity or consolidation identified. No significant pleural effusion noted. No pneumothorax detected. IMPRESSION: No radiographic evidence for any acute cardiopulmonary process. DICTATED BY: SMITA CUETO MD DATE: 03/22/24 1749 ASSESSMENT: Acute on chronic renal failure Hypotension Generalized weakness Anemia Dementia Bronchitis with wheezing Diabetes mellitus type 2 Diabetic nephropathy Hypertension Hypothyroidism Hyperlipidemia PLAN: Labs, diagnostic, radiologic exams reviewed and interpreted by myself and supervising physician. We have reviewed external records in detail Require close monitoring of renal function and electrolytes Continue with renally dosed antibiotics Renal diabetic diet BiPAP as necessary, for respiratory distress Monitor blood pressure adjust medication doses as needed Avoid hypotensive episodes May use Dilaudid 0.5 mg IV every 6 hours as needed for severe pain Monitor blood sugars Strict intake, output, and daily weight should be monitored Please renally adjust medications Avoid nephrotoxic and nonsteroidal drugs Avoid contrast if possible Will continue to monitor renal function, anemia, electrolytes Treatment plan discussed with patient Questions were answered We have discussed with the other team physicians in detail about the care plan We will continue to monitor the patient closely ATTESTATION BY PHYSICIAN I have seen and examined the patient. I reviewed the documentation, medical decision making, and treatment plan as noted by the mid-level provider above. I agree with the findings and plan of care. FAITH ROMERO MD, ELIZABETH FNP Mar 27, 2024 14:04
--- NOTE | 2024-03-27 16:30 | NUR ---
BLOOD GLUCOSE 81. NO INSULIN COVERAGE NEEDED AT THIS TIME.
[2024-03-27] MEDS: LACTULOSE 20 GM/30 ML UDCUP PO PRN (17:22)
--- NOTE | 2024-03-27 19:29 | PN ---
INFECTIOUS DISEASE PROGRESS NOTE Date of Service: Mar 27, 2024 SUBJECTIVE: This is a 88-year-old female patient who was sent over from [facility] for evaluation of low blood pressure, of weakness and cough. Patient was found on on acute on chronic renal failure with a BUN of 102 and creatinine of 4.4. Patient was seen and examined at bedside in room 314. Patient is awake, alert and oriented to person. No fever, temperature is 98.4. Renal function slowly improving, BUN is 38 and creatinine of 2.0. Magnesium level of 1.5 will be cover. No bowel movements reported, we will start lactulose 20 g p.o. every 6 hours as needed. No nausea or vomiting. Denies abd ominal pain during palpation. Family members visiting at bedside. We will continue to monitor patient's care. PHYSICAL EXAM EYES: Anicteric. Pupils equal and reactive. HENT: No oral thrush seen, moist Oral mucosa NECK: Supple, no JVD or thyromegaly. LUNGS: Good air entry. No rales, no rhonchi. CARDIOVASCULAR: S1, S2 regular. No murmur heard. ABDOMEN: Soft, non tender, bowel sounds present, no organomegaly CENTRAL NERVOUS SYSTEM: Awake, alert, oriented x 1. SKIN: No rashes, no swelling. LYMPHATICS: No peripheral lymphadenopathy. MUSCULOSKELETAL: No joint swelling, erythema or tenderness. EXTREMITIES: No cyanosis or clubbing. Weakness. BACK: No deformity, no pressure ulcer. GENITOURINARY: No dysuria or hematuria Vital Sign (Last 12 Hours) 03/27/24 03/27/24 03/27/24 03/27/24 07:30 07:31 08:00 08:00 Temp 98.4 Pulse 74 74 68 Resp 18 18 20 B/P (MAP) 105/56 Pulse Ox 100 100 O2 Delivery N/Cannula Oximizer Hi LPM Nasal Cannula* Nasal Cannula O2 Flow Rate 2.0 2 2.0 FiO2 28 28 03/27/24 03/27/24 03/27/24 03/27/24 11:36 12:00 16:00 18:39 Temp 98.4 98.2 Pulse 69 71 76 78 Resp 18 20 20 18 B/P (MAP) 113/68 107/75 Pulse Ox 97 97 O2 Delivery Nasal Cannula Nasal Cannula N/Cannula Oximizer Hi LPM O2 Flow Rate 2.0 2.0 2.0 FiO2 28 03/27/24 18:39 Pulse 78 Resp 18 Intake & Output (last 24hrs) 03/26/24 03/26/24 03/27/24 15:00 23:00 07:00 Intake Total 460 ml 220 ml Output Total 1100 ml 1000 ml Balance 460 ml -880 ml -1000 ml LABS: Laboratory: Test 03/27/24 15:30 03/27/24 04:08 03/26/24 05:11 Range/Units Whole Blood Glucose 81 70-110 MG/DL White Blood Count 6.3 4.8-10.8 K/uL Red Blood Count 3.08 L 4.00-5.50 MIL/uL Hemoglobin 9.5 L 12.0-16.0 g/dL Hematocrit 30.9 L 36-48 % Mean Corpuscular Volume 100.3 H 79-99 fL Mean Corpuscular Hemoglobin 30.8 27.0-33.0 pg Mean Corpuscular Hemoglobin Concent 30.7 L 32.0-36.0 g/dL Red Cell Distribution Width 13.6 11.0-15.5 % Platelet Count 163 130-400 K/uL Mean Platelet Volume 9.7 7.5-10.5 fL Nucleated Red Blood Cells 0.0 0.0-0.19 % Sodium Level 147 H 136-145 mmol/L Potassium Level 3.8 3.5-5.1 mmol/L Chloride Level 106 101-111 mmol/L Carbon Dioxide Level 34 H 21-32 mmol/L Blood Urea Nitrogen 38 H 7-18 mg/dL Creatinine 2.0 H 0.5-1.0 mg/dL Glomerular Filtration Rate Calc 23 >90 mL/min Random Glucose 81 70-105 mg/dL Total Calcium 8.3 L 8.5-10.1 mg/dL Magnesium Level 1.50 L 1.80-2.40 mg/dL Segmented Neutrophils % 36 L 40-70 % Lymphocytes % (Manual) 50 H 22-44 % Monocytes % (Manual) 7 2-9 % Eosinophils % (Manual) 5 1-6 % Basophils % (Manual) 2 0-2 % Differential Comment MANUAL DIFFERENTIAL White Cell Morphology Comment Platelet Morphology Comment See comments Red Blood Cell Morphology See comments Phosphorus Level 3.6 2.5-4.9 mg/dL ASSESSMENT: Acute on chronic renal failure, improving Dehydration Diabetes mellitus. Dementia. Debility. Failure to thrive. Constipation. PLAN: Lactulose 20 g p.o. every 6 hours as needed. Avoid nephrotoxic medications. Glucometer checks a.c./hs and cover with insulin per sliding scale protocol. Continue nutritional support. Continue with Physical therapy. Continue physical therapy. Continue aspiration precaution. This case was reviewed and discussed with my supervising physician and the above assessment and plan was formulated and agreed upon. ATTESTATION BY PHYSICIAN I have seen and examined the patient. I reviewed the documentation, medical decision making, and treatment plan as noted by the mid-level provider above. I agree with the findings and plan of care. BRAD MCGRAW MD, [facility] [employer] Mar 27, 2024 19:29
[2024-03-27] MEDS ORDERED: MAGNESIUM 2GM PREMIX 50ML 50 ML IV SCH (19:30)
[2024-03-27] MEDS: CLOTRIMAZOLE 10 MG TROCHE MM SCH (21:01)
[2024-03-28] VITALS (9 sets, daily range): BP systolic 110–160; BP diastolic 52–76; PULSE 67–100; RESP 18–21; TEMP 98.1–98.9; O2SAT 96
[2024-03-28 05:54] LABS: BASOPHILS # (AUTO) 0.04 K/uL (0.00-0.20); BASOPHILS % (AUTO) 0.6 % (0.0-5.0); EOSINOPHILS # (AUTO) 0.55 K/uL (0.00-0.70); EOSINOPHILS % (AUTO) 8.2 % (0.0-8.0); HEMATOCRIT 32.9 % (36-48); LYMPHOCYTES # (AUTO) 2.2 K/uL (1.0-4.8); LYMPHOCYTES % (AUTO) 32.3 % (21.0-51.0); MEAN CORPUSCULAR HEMOGLOBIN 30.9 pg (27.0-33.0); MEAN CORPUSCULAR HGB CONC 31.6 g/dL (32.0-36.0); MEAN CORPUSCULAR VOLUME 97.6 fL (79-99); MONOCYTES # (AUTO) 0.6 K/uL (0.1-1.0); MONOCYTES % (AUTO) 8.4 % (3.0-13.0); NEUTROPHILS # (AUTO) 3.3 K/uL (1.8-7.7); PLATELET COUNT (AUTO) 151 K/uL (130-400); RED BLOOD CELL COUNT(AUTO) 3.37 MIL/uL (4.00-5.50); RED CELL DISTRIBUTION WIDTH 13.4 % (11.0-15.5); WHITE BLOOD COUNT (AUTO) 6.7 K/uL (4.8-10.8)
[2024-03-28 05:55] LABS: MAGNESIUM 1.6 mg/dL (1.80-2.40); POTASSIUM 3.9 mmol/L (3.5-5.1)
[2024-03-28] MEDS: BENZONATATE 100 MG CAPSULE PO PRN (09:38)
--- NOTE | 2024-03-28 13:36 | PN ---
NEPHROLOGY PROGRESS NOTE Date/Time Patient Seen: Mar 28, 2024 Reason for Consultation: 13:35 SUBJECTIVE: This is an 88 year-old female with a past medical history of dementia, diabetes mellitus type 2, hyperlipidemia, hypertension, hypothyroidism, chronic kidney disease. She presented to the emergency room from [facility] with complaints of hypotension. She was noted to have elevated BUN/creatinine. We are consulted for renal failure Renal function is stable Electrolytes show sodium of 147. She was seen in the medial floor. Family members at the bedside voiced considering Palliative care Prognosis remains guarded REVIEW OF SYSTEMS: GENERAL: Negative for any nausea, vomiting, fevers, chills, or weight loss. NEUROLOGIC: Negative for any blurry vision, blind spots, double vision, facial asymmetry, dysphagia, dysarthria, hemiparesis, hemisensory deficits, vertigo, ataxia. HEENT: Negative for any head trauma, neck trauma, neck stiffness, photophobia, phonophobia, sinusitis, rhinitis. CARDIAC: Negative for any chest pain, dyspnea on exertion, paroxysmal nocturnal dyspnea, peripheral edema. PULMONARY: Negative for any shortness of breath, wheezing, COPD, or TB exposure. GASTROINTESTINAL: Negative for any abdominal pain, nausea, vomiting, bright red blood per rectum, melena. GENITOURINARY: Negative for any dysuria, hematuria, incontinence. INTEGUMENTARY: Negative for any rashes, cuts, insect bites. RHEUMATOLOGIC: Negative for any joint pains, photosensitive rashes, history of vasculitis or kidney problems. HEMATOLOGIC: Negative for any abnormal bruising, frequent infections or bleeding. PHYSICAL EXAM: GENERAL: Alert and oriented x 3. No acute distress. Well-nourished. EYES: EOMI. Anicteric. HENT: Moist mucous membranes. No scleral icterus. No cervical lymphadenopathy. LUNGS: Clear to auscultation bilaterally. No accessory muscle use. CARDIOVASCULAR: Regular rate and rhythm. No murmur. No JVD. ABDOMEN: Soft, non-tender and non-distended. No palpable masses. EXTREMITIES: No edema. Non-tender.?SKIN: No rashes or lesions. Warm. NEUROLOGIC: No focal neurological deficits. CN II-XII grossly intact, but not individually tested. PSYCHIATRIC: Cooperative. Appropriate mood and affect. LABORATORY: [ ] Hematology Labs: Test 03/28/24 04:58 Range/Units White Blood Count 6.7 4.8-10.8 K/uL Red Blood Count 3.37 L 4.00-5.50 MIL/uL Hemoglobin 10.4 L 12.0-16.0 g/dL Hematocrit 32.9 L 36-48 % Mean Corpuscular Volume 97.6 79-99 fL Mean Corpuscular Hemoglobin 30.9 27.0-33.0 pg Mean Corpuscular Hemoglobin Concent 31.6 L 32.0-36.0 g/dL Red Cell Distribution Width 13.4 11.0-15.5 % Platelet Count 151 130-400 K/uL Mean Platelet Volume 10.5 7.5-10.5 fL Immature Granulocyte % (Auto) 1.5 H 0-1 % Neutrophils (%) (Auto) 49.0 40.0-77.0 % Lymphocytes (%) (Auto) 32.3 21.0-51.0 % Monocytes (%) (Auto) 8.4 3.0-13.0 % Eosinophils (%) (Auto) 8.2 H 0.0-8.0 % Basophils (%) (Auto) 0.6 0.0-5.0 % Neutrophils # (Auto) 3.3 1.8-7.7 K/uL Lymphocytes # (Auto) 2.2 1.0-4.8 K/uL Monocytes # (Auto) 0.6 0.1-1.0 K/uL Eosinophils # (Auto) 0.55 0.00-0.70 K/uL Basophils # (Auto) 0.04 0.00-0.20 K/uL Absolute Immature Granulocyte (auto 0.10 0-1 K/uL Nucleated Red Blood Cells 0.0 0.0-0.19 % Chemistry Labs: Test 03/28/24 10:56 03/28/24 04:58 Range/Units Whole Blood Glucose 96 70-110 MG/DL Sodium Level 147 H 136-145 mmol/L Potassium Level 3.9 3.5-5.1 mmol/L Chloride Level 107 101-111 mmol/L Carbon Dioxide Level 30 21-32 mmol/L Blood Urea Nitrogen 36 H 7-18 mg/dL Creatinine 2.0 H 0.5-1.0 mg/dL Glomerular Filtration Rate Calc 23 >90 mL/min Random Glucose 81 70-105 mg/dL Total Calcium 8.8 8.5-10.1 mg/dL Magnesium Level 1.60 L 1.80-2.40 mg/dL DIAGNOSTICS / RADIOLOGY: REASON: WEAKNESS ORDERING PHYSICIAN: MICHELLE KHAN MD PROCEDURE: CXR1VW - CHEST 1VW PORTABLE CHEST RADIOGRAPH INDICATION: WEAKNESS COMPARISON: 03/09/2024 FINDINGS: Heart size is normal. The pulmonary vascularity and juliet appear normal. No abnormal pulmonary parenchymal opacity or consolidation identified. No significant pleural effusion noted. No pneumothorax detected. IMPRESSION: No radiographic evidence for any acute cardiopulmonary process. DICTATED BY: SMITA CUETO MD DATE: 03/22/241742 ASSESSMENT: Acute on chronic renal failure Hypotension Generalized weakness Anemia Dementia Bronchitis with wheezing Diabetes mellitus type 2 Diabetic nephropathy Hypertension Hypothyroidism Hyperlipidemia PLAN: Labs, diagnostic, radiologic exams reviewed and interpreted by myself and supervising physician. We have reviewed external records in detail Require close monitoring of renal function and electrolytes Continue with renally dosed antibiotics Renal diabetic diet BiPAP as necessary, for respiratory distress Monitor blood pressure adjust medication doses as needed Avoid hypotensive episodes May use Dilaudid 0.5 mg IV every 6 hours as needed for severe pain Monitor blood sugars Strict intake, output, and daily weight should be monitored Please renally adjust medications Avoid nephrotoxic and nonsteroidal drugs Avoid contrast if possible Will continue to monitor renal function, anemia, electrolytes Treatment plan discussed with patient Questions were answered We have discussed with the other team physicians in detail about the care plan We will continue to monitor the patient closely ATTESTATION BY PHYSICIAN I have seen and examined the patient. I reviewed the documentation, medical decision making, and treatment plan as noted by the mid-level provider above. I agree with the findings and plan of care. FAITH ROMERO MD, [facility] Mar 28, 2024 13:36
--- NOTE | 2024-03-28 17:00 | NUR ---
PATIENT REFUSED [facility] [employer]. STATED SHE HAS VISITORS IN HER ROOM AT THIS TIME. EDUCATED PATIENT ON THE IMPORTANCE OF HAVING RECURRENT BOWEL MOVEMENTS. PATIENT VERBALIZED UNDERSTANDING.
--- NOTE | 2024-03-28 17:41 | DS ---
DISCHARGE SUMMARY DATE OF DISCHARGE: 03/28/2024 PRESENTING COMPLAINT: Weakness and decreased blood pressure. HOSPITAL COURSE: An 88-year-old female with dementia, diabetes mellitus, hypothyroidism, chronic kidney disease, who presented to the hospital with above complaint. The patient was found with hypotension, was sent to the Emergency Room. In the ER, the patient found with memeg-su-[id number] renal failure. Creatinine was 4.4, BUN of 102. The patient admitted as a case of dehydration. The patient was started on IV fluid. The patient also found with poor oral intake. The patient was evaluated by Nephrology during admission. The patient is doing well clinically. Creatinine today is 2.0. Tolerating orally. Appetite remained poor. The patient and family was updated several times during admission. FINAL DISCHARGE DIAGNOSES: * [id number] heart failure. * Dehydration. * Diabetes mellitus. * Dementia. * Debility. * Poor oral intake. PLAN: * The patient was discharged to SNF for physical therapy. * Continue ____. * Continue antidepressant. * Continue antihypertensive. * Continue Synthroid. * Continue nutritional support. * Continue antidiabetic. * Follow up with Nephrology. * Follow up with primary care physician. TID: [id number] RECEIPT: [id number]
[2024-03-29] VITALS: BP 118/66; PULSE 73; RESP 18; TEMP 98.2
[2024-03-29 04:00] VITALS: BP 108/63; PULSE 67; RESP 18; TEMP 98.3
[2024-03-29 06:24] VITALS: PULSE 67; RESP 18; O2SAT 97
[2024-03-29 08:06] VITALS: BP 122/66; PULSE 68; RESP 17; TEMP 98.3
[2024-03-29 11:39] VITALS: PULSE 63; RESP 18
[2024-03-29 11:40] VITALS: BP 116/63; PULSE 69; RESP 17; TEMP 97.9
--- NOTE | 2024-03-29 12:00 | NUR ---
called [facility] [phone], spoke to Mrs. Remedios HART, gave her report with updates and recent vital signs. Notify her that patient will need van services. She verbalized understanding. Patient will be discharge with copy of chart and med reconciliation. Discusses with patient and family members plan of care, ,medications, and diet restrictions. Patient and family members verbalized understanding.
--- NOTE | 2024-03-29 17:10 | DS ---
Discharge Summary Hospital Course FINAL DISCHARGE DIAGNOSES: * Ollxa-[id number]-dtqqgmb heart failure. * Dehydration. * Diabetes mellitus. * Dementia. * Debility. * Poor oral intake. PLAN: * The patient was discharged to SNF for physical therapy. * Continue ____. * Continue antidepressant. * Continue antihypertensive. * Continue Synthroid. * Continue nutritional support. * Continue antidiabetic. * Follow up with Nephrology. * Follow up with primary care physician. This case was reviewed and discussed with my supervising physician and the above assessment and plan was formulated and agreed upon. ATTESTATION BY PHYSICIAN I have seen and examined the patient. I reviewed the documentation, medical decision making, and treatment plan as noted by the mid-level provider above. I agree with the findings and plan of care. BRAD MCGRAW MD, [facility] Mar 29, 2024 17:10
--- NOTE | 2024-03-29 21:57 | PN ---
SUBJECTIVE: This patient has renal failure, anemia, underlying diabetes, nephropathy, hypertension, dementia, and mental status changes. The patient remains weak. Other systemic review is unchanged. No fever, chills, or rigors. No cough, expectoration, or hemoptysis. No abdominal pain, no nausea or vomiting. No chest pain, no orthopnea or PND. The patient is generally weak. PHYSICAL EXAMINATION: GENERAL: Pale, no other distress. VITAL SIGNS: Blood pressure 122/66, pulse 68, respiratory rate is 17. HEENT: Head is atraumatic, normocephalic. Pupils are round and reactive. Sclerae are anicteric. Conjunctivae are not pale. Oral mucosa is not dry. NECK: Supple. No masses or bruits. Thyroid is palpable. Neck has no bruits. CHEST: Shows equal thoracic percussion note being resonant in all areas. CARDIAC: Regular rhythm. No rub, no S3 or S4. No parasternal heave. ABDOMEN: No guarding or tenderness. Bowel sounds are normoactive. No free fluid. BACK: No tenderness or back deformities LABORATORY DATA: We reviewed available labs in detail with a hemoglobin of 8.4, hematocrit has been stable. Creatinine has been quite elevated. The patient has a BUN of 36 and creatinine 2. PROBLEMS: Acute on chronic renal failure, mental status changes, dementia, previous urinary tract infection, possible aspiration. PLAN: The patient is being considered for half-way for hospice type of care. If hospice is chosen, all blood draws can be stopped. We will suggest comfort medicine including narcotics if the patient and family decide for comfort measures. Overall, condition remained guarded. I have discussed with other team members and family. Thank you for this patient. TID: [id number] RECEIPT: [id number]
== END 2024-03-29 14:20 | DRG 315 ==
LOC: EDH 16:23 → EDHIP 20:37 → 3CH 03-23 22:14
PROVIDERS: ADMIT Internal Medicine Infectious Disease; ATTEND Internal Medicine Infectious Disease
DX: I95.9 Hypotension, unspecified (principal); I13.0 Hypertensive heart and chronic kidney disease with heart failure and stage 1 through stage 4 chronic kidney disease, or unspecified chronic kidney disease; N17.9 Acute kidney failure, unspecified; E86.0 Dehydration; E11.22 Type 2 diabetes mellitus with diabetic chronic kidney disease; N18.9 Chronic kidney disease, unspecified; F03.90 Unspecified dementia, unspecified severity, without behavioral disturbance, psychotic disturbance, mood disturbance, and anxiety; Z20.822 Contact with and (suspected) exposure to COVID-19; D64.9 Anemia, unspecified; J40 Bronchitis, not specified as acute or chronic; E78.5 Hyperlipidemia, unspecified; I50.9 Heart failure, unspecified; E03.9 Hypothyroidism, unspecified; F32.A Depression, unspecified; E78.00 Pure hypercholesterolemia, unspecified; E66.9 Obesity, unspecified; K59.00 Constipation, unspecified; R62.7 Adult failure to thrive; Z74.01 Bed confinement status; Z83.3 Family history of diabetes mellitus; Z79.899 Other long term (current) drug therapy; Z68.36 Body mass index [BMI] 36.0-36.9, adult
CPT/HCPCS: 36415; 71045; 80048; 80053; 82948; 83036; 83605; 83735; 83880; 84100; 84443; 84484; 84550; 85025; 85027; 87635; 87804; 92610; 93005; 94640; 94664; 99285; G0378; J1644; J2919; J7030; J7042